=== PATIENT | female | born 1970 | race Native Hawaiian/Other Pacific Islander ===

== ENCOUNTER 2016-04-25 20:58 | Observation (INO) | payer OTHER ==
[2016-04-25] MEDS ORDERED: SODIUM CHLORIDE 0.9% 1,000 ML IV STA ×2 (21:27)
[2016-04-25] MEDS ORDERED: RX INFO: IV CONTRAST WAS GIVEN 1 EACH MISC MISCELLANE PRN (21:27)
[2016-04-25] MEDS ORDERED: LORazepam 2 MG/ML SYRINGE IV STA (21:28)
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
[2016-04-25 21:43] LABS: Anisocytosis Slight; Basophils % (A) 0 %; CHCM 31.9; Eosinophils # (A) 0.1 k/uL (0-0.7); Eosinophils % (A) 1 %; HDW 3.02; HGB 10.4 gm/dL (11.4-16.0); Hypochromasia Slight; Luc # (Auto) 0.17; Luc % (Auto) 1; Lymphocytes # (A) 3.6 k/uL (1.0-4.8); Lymphocytes % (A) 25 %; MCH 23.1 pg (25.0-35.0); MCHC 30.6 g/dL (31.0-37.0); MCV 75.7 fL (80.0-100.0); Mean Platelet Volume 7.2; Microcytosis Slight; Monocytes # (A) 0.6 k/uL (0-1.0); Monocytes % (A) 4 %; Neutrophils # (A) 9.6 k/uL (1.3-7.7); Neutrophils % (A) 68 %; RBC 4.49 m/uL (3.80-5.40); RDW 17.5 % (11.5-15.5); WBC 14.1 k/uL (3.8-10.6); WBC (Perox) 14.39
[2016-04-25 21:53] LABS: ALT 24 U/L (9-52); AST 18 U/L (14-36); Alkaline Phosphatase 102 U/L (38-126); Amylase 60 U/L (30-110); Anion Gap 13 mmol/L; Blood Urea Nitrogen 12 mg/dL (7-17); Calcium 9.9 mg/dL (8.4-10.2); Carbon Dioxide 25 mmol/L (22-30); Chloride 100 mmol/L (98-107); Glucose 115 mg/dL (74-99); Magnesium 1.4 mg/dL (1.6-2.3); Non-African American GFR(MDRD) >60 (>60 ml/min/1.73 sqM); Phosphorous 4.9 mg/dL (2.5-4.5); Potassium 3.7 mmol/L (3.5-5.1); Sodium 138 mmol/L (137-145); Total Bilirubin 0.4 mg/dL (0.2-1.3); Total Protein 7.8 g/dL (6.3-8.2)
--- NOTE | 2016-04-25 22:28 | CT ---
EXAMINATION TYPE: CT soft tissue neck w con DATE OF EXAM: 04/25/2016 10:13 PM COMPARISON: NONE HISTORY: PT STATES OF LUMP ON LEFT SIDE OF JAW THAT IS PAINFUL. MARKED WITH BB. CT DLP: 666 mGycm Automated exposure control for dose reduction was used. CONTRAST: CT scan of the neck is performed following with IV Contrast, patient injected with 100 mL of Omnipaqu e 300. Axial images are obtained, coronal and sagittal reformatted images are reviewed. FINDINGS: There is moderate mucosal thickening in the right maxillary sinus. Parotid glands are symmetric. Subm andibular salivary glands are symmetric. Orbital margins are intact. There is no evidence of a pharyn geal mass. Thyroid gland is symmetric. There is normal branching pattern of the great vessels on the aortic arch. There are a few bilateral anterior triangle cervical lymph nodes that measure up to 2 cm . Epiglottis is normal. Subglottic trachea appears normal. Cervical spine is intact. IMPRESSION: Right maxillary sinusitis. The parotid glands are symmetric. I do not see a discrete ma ss involving the left parotid gland which is the area of concern marked on the images. Mild anterior cervical adenopathy of uncertain significance.
[2016-04-25 22:45] LABS: Appearance,Urine Cloudy (Clear); Bilirubin,Urine Negative (Negative); Glucose,Urine (UA) Negative (Negative); Ketones,Urine Negative (Negative); Leukocyte Esterase,Urine Negative (Negative); Nitrite,Urine Negative (Negative); Particle Count 2974; Protein,Urine Negative (Negative); RBC,Urine <1 /hpf (0-5); Specific Gravity,Urine 1.016 (1.001-1.035); Squamous Epithelial Cell,Urine 8 /hpf (0-4); UA Billing (MACRO vs. MICRO) MICRO; Urobilinogen,Urine <2.0 mg/dL (<2.0); WBC,Urine 1 /hpf (0-5)
[2016-04-25] MEDS ORDERED: ACETAMINOPHEN TAB 325 MG TAB PO STA (23:02)
[2016-04-25] MEDS: MAGNESIUM SULFATE-D5W PMX 1 GM in DEXTROSE/WATER 1 100ML.BAG IVPB SCH (23:03)
[2016-04-26] MEDS: MAGNESIUM SULFATE-D5W PMX 1 GM in DEXTROSE/WATER 1 100ML.BAG IVPB SCH ×2 (00:10→20:47)
[2016-04-26] MEDS ORDERED: SODIUM CHLORIDE 0.9% 1,000 ML IV ONE (00:20)
[2016-04-26] MEDS ORDERED: AMPICILLIN-SULBACTAM 3 GM in SODIUM CHLORIDE 0.9% 100 ML IVPB STA (00:21)
[2016-04-26] MEDS ORDERED: ACETAMINOPHEN TAB 325 MG TAB PO PRN (00:21)
[2016-04-26 01:57] VITALS: BMI 33.4
[2016-04-26] MEDS: LORazepam 2 MG/ML SYRINGE IV PRN ×4 (02:09→22:23)
[2016-04-26] MEDS: AMPICILLIN-SULBACTAM 3 GM in SODIUM CHLORIDE 0.9% 100 ML IVPB SCH ×3 (06:41→21:31)
[2016-04-26] MEDS: ENOXAPARIN 40 MG/0.4 ML SYRINGE SQ SCH (08:16)
--- NOTE | 2016-04-26 09:19 | XR ---
EXAMINATION TYPE: XR chest 2V DATE OF EXAM: 04/26/2016 7:25 AM COMPARISON: Prior chest x-ray November HISTORY: Pain, lump on the right side of jaw TECHNIQUE: Frontal and lateral views of the chest are obtained. FINDINGS: There is no focal air space opacity, pleural effusion, or pneumothorax seen. The cardiac silhouette size is within normal limits. There are overlying cardiac leads. The osseous structures a re intact. IMPRESSION: No acute cardiopulmonary process.
[2016-04-26] MEDS ORDERED: ALPRAZolam 0.5 MG TAB PO PRN (09:26)
[2016-04-26] MEDS ORDERED: HYDROcodone/APAP 5-325MG 1 EACH TAB PO PRN (09:26)
[2016-04-26] MEDS: METHOCARBAMOL 500 MG TAB PO SCH ×3 (10:14→22:22)
[2016-04-26] MEDS: GABAPENTIN 400 MG CAP PO SCH ×3 (10:14→22:22)
[2016-04-26] MEDS: LISINOPRIL 20 MG TAB PO SCH (10:14)
[2016-04-26] MEDS: IBUPROFEN 600 MG TAB PO SCH ×3 (12:32→22:21)
--- NOTE | 2016-04-26 14:45 | HP ---
DATE OF ADMISSION: CHIEF COMPLAINT: Chest pain and swelling in the left side of her neck. HISTORY OF PRESENT ILLNESS: This is the first admission for this 45-year-old G4, P3, A1 female. She started noticing some swelling in the left side of the neck or parotid area. She came to emergency room. A CT of the neck was normal and did not demonstrate any pathology. She has had no fever, chills, earache, soreness or lesions in the mouth or throat, etc. It appears to be in the parotid gland. REVIEW OF SYSTEMS: She has had no other symptoms. Past medical history, family history and personal and social histories are reviewed. SURGICAL HISTORY: She has had tubal ligation, and she had a procedure for endometriosis in the past. The patient is not allergic to any medication. She takes [place], Neurontin, lisinopril, Xanax, Robaxin, and propranolol. She smokes half pack of cigarettes a day. PHYSICAL EXAM: Temperature 98.2 and blood pressure 140/96. Pulse is 83, respirations 20, and she is afebrile. Head, ears, eyes, nose, mouth, and throat were normal. Neck veins are not distended. Thyroid is not enlarged. She does have left parotid swelling and tenderness. Neck is supple and chest is clear. Cardiac exam is normal. The abdomen is soft, nontender. Extremities are normal. IMPRESSION: 1. Probable left-sided parotiditis. 2. Hypertension. PLAN: 1. Bed rest. 2. IV fluids. 3. IV antibiotics. 4. Consult with ENT.
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
[2016-04-26] MEDS: HYDROcodone/APAP 5-325MG 1 EACH TAB PO PRN ×2 (18:08→22:31)
[2016-04-27] MEDS: AMPICILLIN-SULBACTAM 3 GM in SODIUM CHLORIDE 0.9% 100 ML IVPB SCH ×3 (02:43→14:39)
[2016-04-27 07:08] LABS: Anisocytosis Slight; Basophils % (A) 0 %; CH 23.5; Eosinophils # (A) 0.1 k/uL (0-0.7); Eosinophils % (A) 2 %; HCT 33.2 % (34.0-46.0); HDW 2.91; HGB 10.1 gm/dL (11.4-16.0); Hypochromasia Marked; Luc # (Auto) 0.23; Luc % (Auto) 3; Lymphocytes # (A) 3.4 k/uL (1.0-4.8); Lymphocytes % (A) 38 %; MCH 23.8 pg (25.0-35.0); MCHC 30.3 g/dL (31.0-37.0); MCV 78.6 fL (80.0-100.0); Mean Platelet Volume 6.8; Microcytosis Slight; Monocytes # (A) 0.4 k/uL (0-1.0); Monocytes % (A) 5 %; Neutrophils # (A) 4.7 k/uL (1.3-7.7); Neutrophils % (A) 52 %; RBC 4.23 m/uL (3.80-5.40); RDW 17.4 % (11.5-15.5); WBC (Perox) 9.81
[2016-04-27 07:26] LABS: ALT 23 U/L (9-52); AST 14 U/L (14-36); Alkaline Phosphatase 85 U/L (38-126); Anion Gap 9 mmol/L; Blood Urea Nitrogen 12 mg/dL (7-17); Calcium 8.3 mg/dL (8.4-10.2); Carbon Dioxide 24 mmol/L (22-30); Chloride 108 mmol/L (98-107); Glucose 86 mg/dL (74-99); Magnesium 2.1 mg/dL (1.6-2.3); Non-African American GFR(MDRD) >60 (>60 ml/min/1.73 sqM); Potassium 4.4 mmol/L (3.5-5.1); Sodium 141 mmol/L (137-145); Total Bilirubin 0.2 mg/dL (0.2-1.3); Total Protein 6.8 g/dL (6.3-8.2)
[2016-04-27] MEDS: HYDROcodone/APAP 5-325MG 1 EACH TAB PO PRN ×2 (07:57→13:08)
[2016-04-27] MEDS: LISINOPRIL 20 MG TAB PO SCH (07:58)
[2016-04-27] MEDS: ENOXAPARIN 40 MG/0.4 ML SYRINGE SQ SCH (07:58)
[2016-04-27] MEDS: GABAPENTIN 400 MG CAP PO SCH (07:58)
[2016-04-27] MEDS: METHOCARBAMOL 500 MG TAB PO SCH (07:59)
[2016-04-27 08:21] VITALS: BP 123/70; PULSE 104; RESP 18; TEMP 98.6
--- NOTE | 2016-04-27 08:53 | P.CNOR ---
History of Present Illness - [facility] Consult date: 04/27/16 Consult reason: neck pain History of present illness: Patient is seen and examined today at bedside. She is a 45-year-old female with long-standing history of neck pain. She says that her neck pains been present for years and years and it doesn't have any specific new change. She does say that she developed some swelling at the left side of her face and neck and has been having pain at her neck and toward her chest and shoulder. She is quite concerned about this and presented to the hospital in this regard. She has been worked up for the procedure swelling around her cheek and upper neck on the left but there has not been found to be discrete mass or issue at the area. She has soreness at her neck which she states has been present for years. She currently sees Dr. Wu as an outpatient for her continued neck issues. She has had interventional pain management and medical management for her neck issues in the past with Dr. Barrow and Dr. Wu. She denies any weakness at her upper extremities. She denies any numbness or tingling at her arms below her elbows. She does fascia has some numbness that extends at her left leg over her shoulders. She denies any weakness in her shoulders. She has increased pain with extension at her neck. She denies any changes with bowel or bladder function Review of Systems She smokes regularly. She denies any recent physical therapy or specific exercises for her neck. She says she had spasms around her neck quite regularly but states that she has poor diet. She denies any weakness in her upper extremities denies any changes in her bowel bladder function. She feels that she has some chest pain with her neck on the left. Past Medical History Past Medical History: COPD, GERD/Reflux, Hypertension, Musculoskeletal Disorder , Seizure Disorder Additional Past Medical History / Comment(s): ANXIETY, Depression, suicide attempt, Bipolar, Borderline Traits. Pt. states last seizure was yesterday 11/10 History of Any Multi-Drug Resistant Organisms: None Reported Past Surgical History: Tubal Ligation Additional Past Surgical History / Comment(s): "Tummy Tuck" Past Anesthesia/Blood Transfusion Reactions: No Reported Reaction Additional Past Anesthesia/Blood Transfusion Reaction / Comm: Unknown, patient poor historian. Past Psychological History: Anxiety, Bipolar, Depression Additional Psychological History / Comment(s): History of jumpig off a second story building in [place]. Smoking Status: Current every day smoker Past Alcohol Use History: None Reported Additional Past Alcohol Use History / Comment(s): pt denies any etoh or drug use Past Drug Use History: Prescription Drug Abuse Additional Drug Use History / Comment(s): pt does have a hx if inpt SA tx Medications and Allergies Home Medications Medication Instructions Recorded Confirmed Type ALPRAZolam [Xanax] 1 mg PO BID PRN 10/15/15 04/25/16 History Lisinopril [Lisinopril] 20 mg PO DAILY 10/15/15 04/25/16 History Propranolol HCl 20 mg PO BID 10/15/15 04/25/16 History Albuterol Inhaler [Ventolin Hfa 2 puff INHALATION RT-Q6H PRN 01/11/16 04/25/16 History Inhaler] Gabapentin [Neurontin] 400 mg PO TID 04/25/16 04/25/16 History HYDROcodone/APAP 5-325MG [[place] 1 tab PO DAILY PRN 04/25/16 04/25/16 History 5-325] Methocarbamol [Robaxin] 500 mg PO TID 04/25/16 04/25/16 History Allergies Allergy/AdvReac Type Severity Reaction Status Date / Time Fish Containing Products Allergy Unknown Verified 04/25/16 21:06 [Fish] onion Allergy Anaphylaxis Verified 04/25/16 21:06 shellfish derived [Shellfish] Allergy Anaphylaxis Verified 04/25/16 21:06 venom-honey bee Allergy Anaphylaxis Verified 04/25/16 21:06 [bee venom (honey bee)] Physical Examination Osteopathic Statement: *. No significant issues noted on an osteopathic structural exam other than those noted in the History and Physical/Consult. Results - Labs Labs: Abnormal Lab Results - Last 24 Hours (Table) 04/27/16 04/27/16 Range/Units 06:34 06:34 Hgb 10.1 L (11.4-16.0) gm/dL Hct 33.2 L (34.0-46.0) % MCV 78.6 L (80.0-100.0) fL MCH 23.8 L (25.0-35.0) pg MCHC 30.3 L (31.0-37.0) g/dL RDW 17.4 H (11.5-15.5) % Chloride 108 H (98-107) mmol/L Calcium 8.3 L (8.4-10.2) mg/dL H & H 04/27/16 Range/Units 06:34 Hgb 10.1 L (11.4-16.0) gm/dL Hct 33.2 L (34.0-46.0) % Result Diagrams: 04/27/16 06:34 04/27/16 06:34 - Diagnostic results Cervical MRI with contrast: report reviewed, image reviewed (Her new computed tomography scan of her thoracic spine as well as her cervical thoracic and lumbar MRIs from March 22 and 03/24/2016 are reviewed. I reviewed the images and the reports.) Lumbar MRI with/without contrast: report reviewed, image reviewed CT Scan - lumbar: report reviewed, image reviewed Assessment and Plan Plan: Chronic neck pain Myofascial strain at her neck Degenerative disc disease cervical spine Degenerative disc disease lumbar spine Degenerative disc disease thoracic spine The patient has had chronic neck pain over the past several years. She has some new swelling over her left upper neck toward her jaw which is on accounted for and still being worked up. She feels she has some tightness around her neck and left upper chest which is continuing with her workup. I think that it is doubtful that this stems directly from her cervical spine other than issues with myofascial strain around her neck. I was able to review her computed tomography scan of her neck as well as images from 1 month ago at her neck thoracic spine and lumbar spine. There is some disc degeneration at C5 6 and C6 7 with some disc bulging without significant stenosis or foraminal encroachment. At her thoracic spine she has some disc protrusions at C3 4 5 and C7 8 without significant stenosis. Her lumbar spine shows some disc degeneration at L4 5 with mild disc bulging without stenosis centrally, there is some bilateral protrusion at L4 5 on the left. I do not think that her spine is significantly causing radicular symptoms and she does not have focal neurologic deficit at this point. I do not think that she would be a candidate for surgical intervention at her neck thoracic or lumbar spine at this point. I think that she should try to work through some physical therapy to alleviate her myofascial strain along with anti-inflammatory medications and possible steroids. She was discussing pain medications which she should continue with her pain management through Dr. Wu as she is already established. I think she should continue conservative treatment for her neck with Dr. Wu's office as an outpatient. She has a number of lifestyle changes that could be made to help her situation with her neck overall including her change of diet, loss of weight, smoking cessation, and focused physical therapy and continue home exercises. We discussed this at bedside. From a orthopedic surgery standpoint it is okay for discharge home when she is cleared with medical management. We can follow her up on an as- needed basis.
[2016-04-27] MEDS: LORazepam 2 MG/ML SYRINGE IV PRN (09:34)
[2016-04-27] MEDS: IBUPROFEN 600 MG TAB PO SCH (09:34)
--- NOTE | 2016-04-27 13:59 | P.DS ---
Providers Date of admission: 04/26/16 00:19 Expected date of discharge: 04/27/16 Attending physician: Jhonny Arizmendi Consults: 04/26/16 15:15 Consult Physician Routine Consulting Provider: Julián Soto Consult Reason/Comments: neck pain Do you want consulting provider notified?: Already Contacted 04/26/16 16:25 Consult Physician Routine Consulting Provider: True Sabillon Consult Reason/Comments: neck pain Do you want consulting provider notified?: Already Contacted 04/27/16 07:00 Consult Physician Urgent Consulting Provider: Gavin Hewitt Consult Reason/Comments: left cervical radiculopathy Do you want consulting provider notified?: Yes Primary care physician: Stated None Hospital Course: 45-year-old female presented with a chief complaint of developing swelling in the left side of the neck involving parotid area. Patient stated that she noticed a swelling in the left side of the neck several days prior. Patient did have a CAT scan of the neck but was read as normal. Patient was seen by Dr. Amaro who indicated from his perspective that there was no acute intervention warranted at this time. Patient was being treated for inflammation of parotid on admission patient was started on IV antibiotic therapy. Dr. Sabillon indicated the patient be discharged on oral Augmentin and increase oral intake there was no evidence of any stone in the parotid gland additionally orthopedic consultation was requested for the neck /cervical pain. They indicated there was no orthopedic surgical intervention at this time continue with conservative treatment. Patient does see for pain management doctor estela. Patient did have a computed tomography scan of the lumbar and thoracic and neck spine. It did show disc degeneration at C5 6 and 7 with some bulge disc without any significant stenosis. They did discuss patient could address lifestyle changes that could be made to help her situation with her neck including diet change loss await stop smoking cigarettes and physical therapy as well as home exercise. This was discussed by orthopedic service from the perspective was okay to be discharged. Additionally patient was seen by Dr. Octavia Soto neurology with a neurological workup patient did have an MRI of the cervical spine done on 03/22/2016 it showed cervical disc disease at C5 and C6. That would contribute to her left arm discomfort. It was noted the patient was requesting pain medication monitored a refill. Was explained to the patient this would be deferred to her pain specialist at this time. And from all consulting physicians patient was felt to be appropriate to be discharged home Impression discharge diagnosis Anxiety disorder nonspecified Chronic neck pain Myofascial strain at her neck Degenerative disc disease cervical spine Degenerative disc disease lumbar spine Degenerative disc disease thoracic spine Cervical radiculopathy Status: Acute Code(s): M54.12 - RADICULOPATHY, CERVICAL REGION Anxiety Status: Acute Code(s): F41.9 - ANXIETY DISORDER, UNSPECIFIED Neck pain Status: Acute Code(s): M54.2 - CERVICALGIA Present on admission left neck pain suspect due to acute parotiditis with no evidence of a stone Chronic pain narcotic dependency The above dictated assessment and findings were discussed with dr arizmendi. Impression and the plan of care have been dictated as directed. Renee Oreilly nurse practitioner acting as a scribe for dr arizmendi Patient Condition at Discharge: Good Plan - Discharge Summary New Discharge Prescriptions: Amoxicillin/Potassium Clav [Augmentin 875-125 Tablet] 1 tab PO Q12HR #20 tab Discharge Medication List ALPRAZolam [Xanax] 1 mg PO BID PRN 10/15/15 [History] Lisinopril 20 mg PO DAILY 10/15/15 [History] Propranolol HCl 20 mg PO BID 10/15/15 [History] Albuterol Inhaler [Ventolin Hfa Inhaler] 2 puff INHALATION RT-Q6H PRN 01/11/16 [ History] Gabapentin [Neurontin] 400 mg PO TID 04/25/16 [History] HYDROcodone/APAP 5-325MG [[place] 5-325] 1 tab PO DAILY PRN 04/25/16 [History] Methocarbamol [Robaxin] 500 mg PO TID 04/25/16 [History] Amoxicillin/Potassium Clav [Augmentin 875-125 Tablet] 1 tab PO Q12HR #20 tab 04/01 [Rx] Follow up Appointment(s)/Referral(s): None,Stated [Primary Care Provider] - 1-2 days Jhonny Arizmendi MD [STAFF PHYSICIAN] - 04/29/16 (Appointment made for April 28 at 12pm.) Ximena Wu MD [STAFF PHYSICIAN] - 1 Week Activity/Diet/Wound Care/Special Instructions: Stop smoking cigarettes smoking cessation information provided Discharge Disposition: HOME SELF-CARE
--- NOTE | 2016-04-27 19:29 | PN ---
CHIEF COMPLAINT: Left parotid pain. HISTORY OF PRESENT ILLNESS: This lady is doing well. She awaits her ENT consult. She had no fever or chills. PHYSICAL EXAMINATION: She still has a tender left parotid mass. Chest is clear. Cardiac exam is Normal. IMPRESSION: Left parotiditis. PLAN: Await evaluation by ENT. After that she may be able to be discharged, and this will be arranged by the nurse practitioner. She will follow up in the office.
== END 2016-04-27 16:45 | disposition home or self-care (01) ==
LOC: EC 20:58 → 3OBS 04-26 00:19
PROVIDERS: ADMIT Family Medicine; ATTEND Family Medicine
DX: M50.10 Cervical disc disorder with radiculopathy, unspecified cervical region (principal); F41.9 Anxiety disorder, unspecified; M51.34 Other intervertebral disc degeneration, thoracic region; M51.36 Other intervertebral disc degeneration, lumbar region; G89.29 Other chronic pain; M48.00 Spinal stenosis, site unspecified; R13.10 Dysphagia, unspecified; S16.1XXA Strain of muscle, fascia and tendon at neck level, initial encounter; K21.9 Gastro-esophageal reflux disease without esophagitis; K11.20 Sialoadenitis, unspecified; J44.9 Chronic obstructive pulmonary disease, unspecified; I10 Essential (primary) hypertension; G40.909 Epilepsy, unspecified, not intractable, without status epilepticus; E83.42 Hypomagnesemia; Z98.51 Tubal ligation status; F31.9 Bipolar disorder, unspecified; F11.20 Opioid dependence, uncomplicated; F17.210 Nicotine dependence, cigarettes, uncomplicated
CPT/HCPCS: 36415; 93005; 80053 ×2; 82150 ×2; 83735 ×3; 84100; 85025 ×2; 81001; 87086; 71020; 70491; 99285; 96375; 96365; 96361; 96366; G0378 ×2; J2060 ×3; J1650 ×2; J3475 ×2; Q9967; J0295 ×2; 96368; 96372; 96376

== ENCOUNTER 2016-08-07 20:48 | Emergency (ER) | payer OTHER ==
[2016-08-07 20:59] VITALS: BP 184/97; PULSE 96; RESP 20; TEMP 99.3
--- NOTE | 2016-08-07 21:13 | ED ---
General Adult HPI - General Chief complaint: Recheck/Abnormal Lab/Rx Stated complaint: anxiety Time Seen by Provider: 08/07/16 21:03 Source: patient, RN notes reviewed Mode of arrival: ambulatory Limitations: no limitations - History of Present Illness Initial comments: 46-year-old female presents to the emergency department with a chief complaint of needing medical clearance for rehab. Patient states she is scheduled to start rehab for heroin addiction. Patient states she was sent here for medical clearance. Patient states that she has injected in the arms and she has noticed a scar tissue and bumps around the arm she wanted to make sure those were okay. Patient states that other than that she has no other complaints. Patient denies any recent fever, chills, shortness of breath, chest pain, back pain, abdominal pain, nausea vomiting, numbness or tingling, dysuria or hematuria, constipation or diarrhea, headaches or visual changes, or any other current symptoms. - Related Data Home Medications Medication Instructions Recorded Confirmed ALPRAZolam [Xanax] 1 mg PO BID PRN 10/15/15 04/25/16 Lisinopril 20 mg PO DAILY 10/15/15 04/25/16 Propranolol HCl 20 mg PO BID 10/15/15 04/25/16 Albuterol Inhaler [Ventolin Hfa 2 puff INHALATION RT-Q6H PRN 01/11/16 04/25/16 Inhaler] Gabapentin [Neurontin] 400 mg PO TID 04/25/16 04/25/16 HYDROcodone/APAP 5-325MG [[place] 1 tab PO DAILY PRN 04/25/16 04/25/16 5-325] Methocarbamol [Robaxin] 500 mg PO TID 04/25/16 04/25/16 Previous Rx's Medication Instructions Recorded Amoxicillin/Potassium Clav 1 tab PO Q12HR #20 tab 04/27/16 [Augmentin 875-125 Tablet] Allergies Allergy/AdvReac Type Severity Reaction Status Date / Time Fish Containing Products Allergy Unknown Verified 04/25/16 21:06 [Fish] onion Allergy Anaphylaxis Verified 04/25/16 21:06 shellfish derived [Shellfish] Allergy Anaphylaxis Verified 04/25/16 21:06 venom-honey bee Allergy Anaphylaxis Verified 04/25/16 21:06 [bee venom (honey bee)] Review of Systems ROS Statement: Those systems with pertinent positive or pertinent negative responses have been documented in the HPI. ROS Other: All systems not noted in ROS Statement are negative. Past Medical History Past Medical History: COPD, GERD/Reflux, Hypertension, Musculoskeletal Disorder , Seizure Disorder Additional Past Medical History / Comment(s): ANXIETY, Depression, suicide attempt, Bipolar, Borderline Traits. Pt. states last seizure was yesterday 11/10 History of Any Multi-Drug Resistant Organisms: None Reported Past Surgical History: Tubal Ligation Additional Past Surgical History / Comment(s): "Tummy Tuck" Past Anesthesia/Blood Transfusion Reactions: No Reported Reaction Additional Past Anesthesia/Blood Transfusion Reaction / Comment(s): Unknown, patient poor historian. Past Psychological History: Anxiety, Bipolar, Depression Additional Psychological History / Comment(s): History of jumpig off a second story building in [place]. Smoking Status: Current every day smoker Past Alcohol Use History: None Reported Additional Past Alcohol Use History / Comment(s): pt denies any etoh or drug use Past Drug Use History: Heroin, Prescription Drug Abuse Additional Drug Use History / Comment(s): pt does have a hx if inpt SA tx General Exam Limitations: no limitations General appearance: alert, in no apparent distress ENT exam: Present: normal exam, mucous membranes moist Neck exam: Present: normal inspection. Absent: tenderness, meningismus, lymphadenopathy Respiratory exam: Present: normal lung sounds bilaterally. Absent: respiratory distress, wheezes, rales, rhonchi, stridor Cardiovascular Exam: Present: regular rate, normal rhythm, normal heart sounds. Absent: systolic murmur, diastolic murmur, rubs, gallop, clicks Extremities exam: Present: full ROM, normal capillary refill. Absent: normal inspection (Patient does appear to have track gary to bilateral arms), tenderness Back exam: Present: normal inspection Neurological exam: Present: alert, oriented X3 Skin exam: Present: warm, dry, intact, normal color. Absent: rash Course Vital Signs 08/07/16 20:54 Temperature 99.3 F Pulse Rate 96 Respiratory 20 Rate Blood Pressure 184/97 O2 Sat by Pulse 100 Oximetry Medical Decision Making - Medical Decision Making 46-year-old female presents for medical clearance for rehab. This and does not appear to be any acute emergency. Sensation is clear to go to rehabilitation. Patient. Plan QUESTIONS have been answered. She'll be discharged home. Disposition Clinical Impression: Medical clearance for psychiatric admission, Opioid abuse Disposition: HOME SELF-CARE Condition: Stable Instructions: Narcotic Abuse (ED) Additional Instructions: Please use medication as discussed. Please follow up with family doctor if symptoms have not improved over the next two days. Please return to the emergency room if your symptoms increase or worsen or for any other concerns. Referrals: None,Stated [Primary Care Provider] - 1-2 days Matt Cervantes MD [STAFF PHYSICIAN] - 1-2 days Time of Disposition: 21:12
== END 2016-08-07 21:20 | disposition home or self-care (01) ==
LOC: EC 20:48
DX: Z00.00 Encounter for general adult medical examination without abnormal findings (principal); F11.10 Opioid abuse, uncomplicated; I10 Essential (primary) hypertension; F17.200 Nicotine dependence, unspecified, uncomplicated; Z91.030 Bee allergy status; Z91.018 Allergy to other foods; Z91.013 Allergy to seafood; Z79.899 Other long term (current) drug therapy
CPT/HCPCS: 99282

== ENCOUNTER 2016-08-29 07:04 | Inpatient (IN) | payer MEDICAID, OTHER ==
[2016-08-29] MEDS: LORazepam 1 MG TAB PO STA ×2 (07:30→10:28)
--- NOTE | 2016-08-29 07:44 | ED ---
General Adult HPI - General Chief complaint: Psychiatric Symptoms Stated complaint: Mental Health Time Seen by Provider: 08/29/16 07:16 Source: patient, RN notes reviewed, old records reviewed Mode of arrival: ambulatory Limitations: no limitations - History of Present Illness Initial comments: This is a 46-year-old female ER for evaluation this patient is here today for evaluation of suicidal thoughts, wind overdosed on drugs. Patient has history of mild psychiatric disease, recent history of drug abuse and increasing life stressors, loss of family loss of friends loss of causing, no job. - Related Data Home Medications Medication Instructions Recorded Confirmed ALPRAZolam [Xanax] 1 mg PO BID PRN 10/15/15 08/29/16 Lisinopril 20 mg PO DAILY 10/15/15 08/29/16 Propranolol HCl 20 mg PO BID 10/15/15 08/29/16 Albuterol Inhaler [Ventolin Hfa 2 puff INHALATION RT-Q6H PRN 01/11/16 08/29/16 Inhaler] Gabapentin [Neurontin] 400 mg PO TID 04/25/16 08/29/16 HYDROcodone/APAP 5-325MG [[place] 1 tab PO DAILY PRN 04/25/16 08/29/16 5-325] Methocarbamol [Robaxin] 500 mg PO TID PRN 04/25/16 08/29/16 Gabapentin [Neurontin] 300 mg PO TID 08/29/16 08/29/16 Allergies Allergy/AdvReac Type Severity Reaction Status Date / Time Fish Containing Products Allergy Unknown Verified 08/29/16 08:36 [Fish] onion Allergy Anaphylaxis Verified 08/29/16 08:36 shellfish derived [Shellfish] Allergy Anaphylaxis Verified 08/29/16 08:36 venom-honey bee Allergy Anaphylaxis Verified 08/29/16 08:36 [bee venom (honey bee)] Review of Systems ROS Statement: Those systems with pertinent positive or pertinent negative responses have been documented in the HPI. ROS Other: All systems not noted in ROS Statement are negative. Past Medical History Past Medical History: COPD, GERD/Reflux, Hypertension, Musculoskeletal Disorder , Seizure Disorder Additional Past Medical History / Comment(s): ANXIETY, Depression, suicide attempt, Bipolar, Borderline Traits. Pt. states last seizure was yesterday 11/10 History of Any Multi-Drug Resistant Organisms: None Reported Past Surgical History: Tubal Ligation Additional Past Surgical History / Comment(s): "Tummy Tuck" Past Anesthesia/Blood Transfusion Reactions: No Reported Reaction Additional Past Anesthesia/Blood Transfusion Reaction / Comment(s): Unknown, patient poor historian. Past Psychological History: Anxiety, Bipolar, Depression Additional Psychological History / Comment(s): History of jumpig off a second story building in [place]. Smoking Status: Current every day smoker Past Alcohol Use History: None Reported Additional Past Alcohol Use History / Comment(s): pt denies any etoh or drug use Past Drug Use History: Heroin, Prescription Drug Abuse Additional Drug Use History / Comment(s): pt does have a hx if inpt SA tx General Exam Limitations: no limitations General appearance: alert, in no apparent distress Head exam: Present: atraumatic, normocephalic, normal inspection Eye exam: Present: normal appearance, PERRL, EOMI. Absent: scleral icterus, conjunctival injection, periorbital swelling ENT exam: Present: normal exam, mucous membranes moist Neck exam: Present: normal inspection. Absent: tenderness, meningismus, lymphadenopathy Respiratory exam: Present: normal lung sounds bilaterally. Absent: respiratory distress, wheezes, rales, rhonchi, stridor Cardiovascular Exam: Present: regular rate, normal rhythm, normal heart sounds. Absent: systolic murmur, diastolic murmur, rubs, gallop, clicks GI/Abdominal exam: Present: soft, normal bowel sounds. Absent: distended, tenderness, guarding, rebound, rigid Extremities exam: Present: normal inspection, full ROM, normal capillary refill. Absent: tenderness, pedal edema, joint swelling, calf tenderness Back exam: Present: normal inspection Neurological exam: Present: alert, oriented X3, CN II-XII intact Psychiatric exam: Present: normal affect, normal mood Skin exam: Present: warm, dry, intact, normal color. Absent: rash Course Vital Signs 08/29/16 07:08 Temperature 98.8 F Pulse Rate 119 H Respiratory 22 Rate Blood Pressure 147/90 O2 Sat by Pulse 98 Oximetry - Reevaluation(s) Reevaluation #1: 08/29/16 07:56 Patient's medically clear for psychiatric evaluation Medical Decision Making - Medical Decision Making 46 female ER prevarication of psychiatric disease, significant vertebra psych will admit for psychiatric evaluation and treatment - Lab Data Lab Results 05/16/17 Range/Units 07:25 Urine Opiates Screen Detected H (NotDetected) Ur Oxycodone Screen Not Detected (NotDetected) Urine Methadone Screen Not Detected (NotDetected) Ur Propoxyphene Screen Not Detected (NotDetected) Ur Barbiturates Screen Detected H (NotDetected) U Tricyclic Antidepress Not Detected (NotDetected) Ur Phencyclidine Scrn Not Detected (NotDetected) Ur Amphetamines Screen Not Detected (NotDetected) U Methamphetamines Scrn Not Detected (NotDetected) U Benzodiazepines Scrn Not Detected (NotDetected) Urine Cocaine Screen Not Detected (NotDetected) U Marijuana (THC) Screen Not Detected (NotDetected) Disposition Clinical Impression: Anxiety, Opioid abuse, Suicidal ideation Disposition: TRANSFER TO PSYCH HOSP/UNIT Condition: Fair Referrals: None,Stated [Primary Care Provider] - 1-2 days
[2016-08-29] MEDS ORDERED: ACETAMINOPHEN TAB 500 MG TAB PO STA (08:00)
[2016-08-29] MEDS ORDERED: GABAPENTIN 400 MG CAP PO STA (08:51)
[2016-08-29] MEDS ORDERED: ACETAMINOPHEN TAB 325 MG TAB PO PRN (11:17)
[2016-08-29] MEDS ORDERED: MAG HYDROX/AL HYDROX/SIMETH 30 ML CUP PO PRN (11:17)
[2016-08-29] MEDS ORDERED: MAGNESIUM HYDROXIDE 2,400 MG/10 ML CUP PO PRN (11:17)
[2016-08-29] MEDS ORDERED: LORazepam 1 MG TAB PO PRN (11:17)
[2016-08-29] MEDS ORDERED: ALBUTEROL INHALER 60 PUFF/8 GM INHALER INHALATION PRN (11:20)
[2016-08-29] MEDS ORDERED: HYDROcodone/APAP 5-325MG 1 EACH TAB PO PRN (12:17)
[2016-08-29] MEDS ORDERED: METHOCARBAMOL 500 MG TAB PO PRN (12:17)
[2016-08-29] MEDS: cloNIDine HCL 0.1 MG TAB PO SCH (13:29)
--- NOTE | 2016-08-29 13:41 | P.HP ---
Psychiatric H&P - . H&P Date: 08/29/16 History & Physical: DATE OF SERVICE: 08/29/2016 IDENTIFYING DATA: This patient is a 46-year-old single female who was admitted to the mental health unit through emergency room for suicidal ideation.. HISTORY OF PRESENT ILLNESS: The patient presents with heroin withdrawal. Began feeling suicidal about one week ago after her car was impounded by drug [employer], she allowed her roommates boyfriend to drive, he is a drug dealer. After she told family about her problems she was told they do not want to have anything to do with her. She now feels she has no reason to live. Planned on OD on heroin. Came to hospital when a friend brought her here instead to get heroin. Has been using heroin for 6 months after her pain doctor stopped seeing her for missing her appointments]. She reports she has bipolar disorder but does not take medications, does not keep outpatient appointments. Patient was crying during interview, stating she did not think she could continue in withdrawal, wants subutex. PAST PSYCHIATRIC HISTORY: 4 admission to psych unit. Reports she is diagnosed with bipolar, cannot recall when she last took, maybe 2013.. PAST MEDICAL HISTORY: Back pain, cyst on kidney. ALLERGIES: No known drug allergies. CHEMICAL DEPENDENCY HISTORY: Heroin IV, denies any other drug use.. FAMILY PSYCHIATRIC HISTORY: states her whole family has some disorder. FAMILY CHEMICAL DEPENDENCY HISTORY:mothers side, all her sisters, on dad's side some members have drug use. LEGAL HISTORY: Denies, but says [email or web address] wants her to work with them.. SOCIAL HISTORY: [Patient is unwilling to give history but reports she has children that were taken by her and she has not seen them for 5 years. Although 2 are in their 20s, they make no attempt to contact her. She cannot explain why they do not wish to be in contact. She is the eldest 6 sisters, 3 with her mother and 3 with her dad. She lives with a roommate and roommates boyfriend. Unemployed. MENTAL STATUS EXAM: Patient alert and oriented 3, poor eye contact, fair groomed in hospital attire.Uncooperative. Speech normal volume, rate and production. Coherent, logical and circumstantial thought process. No TONI, no FOI. No TB/TW/ TI Denied auditory and visual hallucinations. Denied paranoid ideation, delusions or IOR. Memory grossly intact Cognition average Mood dysphoric, tearful, affect constricted, congruent with mood. ++ suicidal ideation, plan to overdose on heroin, denies homicidal ideation. Insight ni; Judgment grossly intact for treatment purposes . STRENGTHS: verbal. WEAKNESSES: heroin. IMPRESSIONS: 46-year-old female with 6 month history of IV heroin use, severe. At a series of events that led to her car being impounded by the police after was involved in a drug exchange. She sought help from family members, who chose not to help. Presents herself as if this is the first time that she is asked for help from them, and has no insight to her responsibility and suffering consequences. She is a poor historian is uncooperative and is threatening to leave if she does not receive either an opiate or Subutex. No evidence of psychosis, no evidence of joselito, hypomania. She is experiencing opiate withdrawal. Opioid use disorder severe Opioid withdrawal History of bipolar disorder Cluster B traits PLAN: Continue psychiatric admission for safety purposes. Clonidine for opiate withdrawal Vistaril for anxiety/restlessness. Allergies Allergy/AdvReac Type Severity Reaction Status Date / Time Fish Containing Products Allergy Unknown Verified 08/29/16 08:36 Fish onion Allergy Anaphylaxis Verified 08/29/16 08:36 shellfish derived Shellfish Allergy Anaphylaxis Verified 08/29/16 08:36 venom-honey bee Allergy Anaphylaxis Verified 08/29/16 08:36 bee venom (honey bee) Vital Signs Temp 98.5 F 08/29/16 11:15 Pulse 105 H 08/29/16 12:46 Resp 18 08/29/16 11:15 BP 125/66 08/29/16 12:46 Pulse Ox 96 08/29/16 11:15 Intake & Output 08/28/16 08/29/16 08/29/16 18:59 06:59 18:59 Weight 79.1 kg Laboratory Last Values Urine Opiates Screen Detected (NotDetected) H 08/29/16 07:25 Ur Oxycodone Screen Not Detected (NotDetected) 08/29/16 07:25 Urine Methadone Screen Not Detected (NotDetected) 08/29/16 07:25 Ur Propoxyphene Screen Not Detected (NotDetected) 08/29/16 07:25 Ur Barbiturates Screen Detected (NotDetected) H 08/29/16 07:25 U Tricyclic Antidepress Not Detected (NotDetected) 08/29/16 07:25 Ur Phencyclidine Scrn Not Detected (NotDetected) 08/29/16 07:25 Ur Amphetamines Screen Not Detected (NotDetected) 08/29/16 07:25 U Methamphetamines Scrn Not Detected (NotDetected) 08/29/16 07:25 U Benzodiazepines Scrn Not Detected (NotDetected) 08/29/16 07:25 Urine Cocaine Screen Not Detected (NotDetected) 08/29/16 07:25 U Marijuana (THC) Screen Not Detected (NotDetected) 08/29/16 07:25 08/29/16 13:03
[2016-08-29] MEDS: hydrOXYzine PAMOATE 25 MG CAP PO PRN ×2 (14:31→19:16)
--- NOTE | 2016-08-29 15:14 | P.CONS ---
History of Present Illness - Reason for Consult Consult date: 08/29/16 Medical management - History of Present Illness This is a 46-year-old female. She does not have a primary care physician. She does have a past medical history of hypertension, anxiety, chronic back pain, asthma. Patient states she follows with Dr. Wu regarding pain management. She states she has been stressed out for a while and she was feeling suicidal. She had a plan but a friend brought her into [facility] emergency center for evaluation. She states she has had a previous hospitalization on the mental health unit in 2013. Urine drug screen was positive for opiates and barbiturates. Review of Systems All systems: negative Constitutional: Denies chills, Denies fever Eyes: denies blurred vision, denies pain Ears, nose, mouth and throat: Denies headache, Denies sore throat Cardiovascular: Denies chest pain, Denies shortness of breath Respiratory: Denies cough Gastrointestinal: Denies abdominal pain, Denies diarrhea, Denies nausea, Denies vomiting Genitourinary: Denies dysuria, Denies hematuria Musculoskeletal: Denies myalgias Integumentary: Denies pruritus, Denies rash Neurological: Denies numbness, Denies weakness Psychiatric: Reports depression, Reports hopelessness, Reports suicidal ideation , Denies anxiety Endocrine: Denies fatigue, Denies weight change Past Medical History Past Medical History: COPD, GERD/Reflux, Hypertension, Musculoskeletal Disorder , Seizure Disorder Additional Past Medical History / Comment(s): ANXIETY, Depression, suicide attempt, Bipolar, Borderline Traits. Pt. states last seizure was 11/10/13 History of Any Multi-Drug Resistant Organisms: None Reported Past Surgical History: Tubal Ligation Additional Past Surgical History / Comment(s): "Tummy Tuck" Past Anesthesia/Blood Transfusion Reactions: No Reported Reaction Additional Past Anesthesia/Blood Transfusion Reaction / Comm: Unknown, patient poor historian. Past Psychological History: Anxiety, Bipolar, Depression Additional Psychological History / Comment(s): History of jumpig off a [employer] building in [place]. Smoking Status: Current every day smoker Past Alcohol Use History: None Reported Additional Past Alcohol Use History / Comment(s): Patient is a smoker of a half a pack per day since she was 18 years of age. She denies any medical marijuana , marijuana, street drug or alcohol use. Past Drug Use History: Heroin, Prescription Drug Abuse Additional Drug Use History / Comment(s): pt does have a hx if inpt SA tx - Past Family History Father Additional Family Medical History / Comment(s): Father at age 63 with brain cancer and lung cancer. Mother Additional Family Medical History / Comment(s): Mother at age 54 due to a drunk driving car accident. Brother(s) Additional Family Medical History / Comment(s): Patient has 3 half brothers. One from a heroin overdose. 2 have no major medical problems. Sister(s) Additional Family Medical History / Comment(s): Patient has 6 half sisters that she does not have contact with. Daughter(s) Additional Family Medical History / Comment(s): Patient has 2 daughters and 1 son. She states she has not seen her 2 youngest children in 5 years as they were taken by their father to [place]. Medications and Allergies Home Medications Medication Instructions Recorded Confirmed Type ALPRAZolam [Xanax] 1 mg PO BID PRN 10/15/15 08/29/16 History Lisinopril 20 mg PO DAILY 10/15/15 08/29/16 History Propranolol HCl 20 mg PO BID 10/15/15 08/29/16 History Albuterol Inhaler [Ventolin Hfa 2 puff INHALATION RT-Q6H PRN 01/11/16 08/29/16 History Inhaler] Gabapentin [Neurontin] 400 mg PO TID 04/25/16 08/29/16 History HYDROcodone/APAP 5-325MG [[place] 1 tab PO DAILY PRN 04/25/16 08/29/16 History 5-325] Methocarbamol [Robaxin] 500 mg PO TID PRN 04/25/16 08/29/16 History Gabapentin [Neurontin] 300 mg PO TID 08/29/16 08/29/16 History Allergies Allergy/AdvReac Type Severity Reaction Status Date / Time Fish Containing Products Allergy Unknown Verified 08/29/16 08:36 [Fish] onion Allergy Anaphylaxis Verified 08/29/16 08:36 shellfish derived [Shellfish] Allergy Anaphylaxis Verified 08/29/16 08:36 venom-honey bee Allergy Anaphylaxis Verified 08/29/16 08:36 [bee venom (honey bee)] Physical Exam Vitals: Vital Signs Temp Pulse Pulse Resp BP BP Pulse Ox 08/29/16 12:46 105 H 125/66 08/29/16 11:15 98.5 F 99 18 140/82 96 08/29/16 11:03 97.8 F 89 16 140/89 98 08/29/16 07:08 98.8 F 119 H 22 147/90 98 Intake and Output 08/28/16 08/29/16 08/29/16 22:59 06:59 14:59 Other: Weight 79.1 kg Patient Weight 08/30/16 06:59 Weight 79.1 kg Gen: This is a 46-year-old female. She is cooperative. Patient is very tearful during evaluation. HEENT: Head is atraumatic, normocephalic. Pupils equal, round. Sclerae is anicteric. NECK: Supple. No JVD. No lymphadenopathy. No thyromegaly. LUNGS: Clear to auscultation. No wheezes or rhonchi. No intercostal retractions. HEART: Regular rate and rhythm. No murmur. ABDOMEN: Soft. Bowel sounds are present. No masses. No tenderness. EXTREMITIES: No pedal edema. No calf tenderness. NEUROLOGICAL: Patient is awake, alert and oriented x3. Cranial nerves 2 through 12 are grossly intact. Results Labs: Abnormal Lab Results - Last 24 Hours (Table) 08/29/16 Range/Units 07:25 Urine Opiates Screen Detected H (NotDetected) Ur Barbiturates Screen Detected H (NotDetected) Assessment and Plan Plan: 1. Depression. Patient admitted to the mental health unit. Continue current plan of care. 2. Tobacco use and dependence. Nicotine patch. 3. Asthma, mild intermittent. Continue Ventolin inhaler as needed. 4. Hypertension. Continue lisinopril 20 mg daily. 5. Chronic low back pain under the care of Dr. Wu. Continue Robaxin and gabapentin if okay with psychiatry. 6. Heroin abuse with withdrawal. No patient completely denied use of street drugs when evaluated but noted in Dr. Prado's notes the patient has been doing heroin for 6 months. Continue clonidine, Vistaril. Impression and plan of care have been directed as dictated by the signing physician. Radha Allen nurse practitioner acting as scribe for signing physician.
[2016-08-29] MEDS: GABAPENTIN 300 MG CAP PO SCH (16:23)
[2016-08-29] MEDS ORDERED: WATER FOR INJECTION, STERILE 10 ML IV ONE (16:42)
[2016-08-29] MEDS ORDERED: ZIPRASIDONE 20 MG VIAL IM ONE (16:42)
[2016-08-29] MEDS: ZIPRASIDONE 20 MG VIAL IM PRN (16:42)
[2016-08-29] MEDS ORDERED: PROPRANOLOL 20 MG TAB PO SCH (21:00)
[2016-08-30] MEDS: cloNIDine HCL 0.1 MG TAB PO SCH ×2 (02:43→08:22)
[2016-08-30] MEDS: GABAPENTIN 300 MG CAP PO SCH ×2 (02:44→08:22)
[2016-08-30] MEDS ORDERED: WATER FOR INJECTION, STERILE 10 ML IV ONE (06:18)
[2016-08-30] MEDS: ZIPRASIDONE 20 MG VIAL IM PRN (06:19)
[2016-08-30 06:58] VITALS: BP 155/67; PULSE 107; RESP 16; TEMP 98.1
[2016-08-30] MEDS: hydrOXYzine PAMOATE 25 MG CAP PO PRN ×2 (08:24→14:36)
[2016-08-30] MEDS ORDERED: LISINOPRIL 20 MG TAB PO SCH (09:00)
[2016-08-30] MEDS ORDERED: NICOTINE 14MG/24HR PATCH TRANSDERM SCH (10:00)
[2016-08-30 10:05] LABS: Anisocytosis Slight; Basophils % (A) 0 %; CH 23.4; CHCM 30.5; Eosinophils # (A) 0.1 k/uL (0-0.7); Eosinophils % (A) 1 %; HCT 36.3 % (34.0-46.0); HDW 2.77; Hypochromasia Moderate; Luc # (Auto) 0.32; Luc % (Auto) 4; Lymphocytes # (A) 2.3 k/uL (1.0-4.8); Lymphocytes % (A) 29 %; MCH 23.4 pg (25.0-35.0); MCHC 30.3 g/dL (31.0-37.0); MCV 77.2 fL (80.0-100.0); Mean Platelet Volume 6.6; Microcytosis Slight; Monocytes # (A) 0.2 k/uL (0-1.0); Monocytes % (A) 3 %; Neutrophils # (A) 4.9 k/uL (1.3-7.7); Neutrophils % (A) 63 %; RDW 17.1 % (11.5-15.5); WBC 7.8 k/uL (3.8-10.6); WBC (Perox) 7.85
[2016-08-30 10:40] LABS: ALT 15 U/L (9-52); AST 19 U/L (14-36); Alkaline Phosphatase 74 U/L (38-126); Anion Gap 14 mmol/L; Blood Urea Nitrogen 14 mg/dL (7-17); Calcium 8.9 mg/dL (8.4-10.2); Carbon Dioxide 21 mmol/L (22-30); Chloride 108 mmol/L (98-107); Glucose 143 mg/dL (74-99); Non-African American GFR(MDRD) >60 (>60 ml/min/1.73 sqM); Potassium 3.8 mmol/L (3.5-5.1); Sodium 143 mmol/L (137-145); Total Bilirubin 0.4 mg/dL (0.2-1.3); Total Protein 7.9 g/dL (6.3-8.2)
--- NOTE | 2016-08-30 12:28 | P.PN ---
Progress Note - Text INTERVERAL HISTORY:Patient reports she found out that I was the one who cancelled her pain medications. "I have 3 buldging discs and a fractured vertebrae, I have a 5 inch cycst somewhere in my body, why do you think I use heroin?" Patient was upset with no opioids being prescribed and no xanax being ordered. Patient states she is now feeling better, no longer restless but anxious. Gives more history today, she was recently at [employer] and left because her clothes were stollen, she does not want to go back there. She states a friend of her mother's is willing to let her stay with him, he does not use drugs, "he's boring, he watches nature shows, goes hunting, no drugs or etoh". Patient much improved, not as demanding of opiates/benzos. Agrees she has gone thru the worse of the withdrawal. Admits she overstated the suicidal thoughts due to being overwhelmed with the impounding of her car. She now is thinking she may work with the drug task force to get it back. She is thinking of looking for a job, requests ointment for scars of injections. She agrees to revoke her AMA with plan of discharge tomorrow MENTAL STATUS EXAM:Patient alert and oriented 3, good eye contact, fair groomed in hospital attire. Speech normal volume, rate and production. Coherent, logical and goal directed thought process. No TONI, no FOI. No TB/TW/ TI Denied auditory and visual hallucinations. Denied paranoid ideation, delusions or IOR. Memory intact Cognitionaverage Mood euthymic, affect full range, normal intensity, congruent with mood. Denies suicidal ideation, denies homicidal ideation. Insight partial; Judgement grossly intact Opioid withdrawal, resolving Opioid use disorder severe History of bipolar disorder(unlikely) Cluster B traits PLAN: Patient to be discharged today, at her request due to friend being able to pick her up today. Long discussion that opiates are not the correct medication for chronic pain. Increase gabapentin 400mg TID
--- NOTE | 2016-08-30 13:10 | P.DS ---
Providers Date of admission: 08/29/16 10:54 Expected date of discharge: 08/30/16 (pt requests today) Attending physician: Humera Prado MD Consults: 08/29/16 11:17 Consult Physician Routine Consulting Provider: Hilton Beck Consult Reason/Comments: history and physical Do you want consulting provider notified?: Yes Primary care physician: Stated None Hospital Course: Patient admitted thru ER with report of plan to kill herself by OD heroin. She reported she thought she was on her way to get heroin but instead friend came to hospital. She only revealed today that was not accurate and that she had not used heroin for a day or so [employer]. She reported she was overwhelmed with her car being impounded and feeling that all her family had turned their back on her. Today she was forthcoming about the presentation, that she did not know what to do with the impounding of the car. She is no longer suicidal, no longer demanding of narcotics or benzos, although she did act out yesterday when she found out she would not receive opiates or benzos on this admission. Discussion of chronic pain and that opiates are not indicated. Although she reports a diagnosis of bipolar disorder, difficult tease out sxs from drug use. Appears more c/w [employer]. Patient much improved, not as demanding of opiates/benzos. Agrees she has gone thru the worse of the withdrawal. Admits she overstated the suicidal thoughts due to being overwhelmed with the impounding of her car. She now is thinking she may work with the drug task force to get it back. She is thinking of looking for a job, requests ointment for scars of injections. She agrees to revoke her AMA with plan of discharge tomorrow MENTAL STATUS EXAM:Patient alert and oriented 3, good eye contact, fair groomed in hospital attire. Speech normal volume, rate and production. Coherent, logical and goal directed thought process. No TONI, no FOI. No TB/TW/ TI Denied auditory and visual hallucinations. Denied paranoid ideation, delusions or IOR. Memory intact Cognitionaverage Mood euthymic, affect full range, normal intensity, congruent with mood. Denies suicidal ideation, denies homicidal ideation. Insight partial; Judgement grossly intact Opioid withdrawal, resolving Opioid use disorder severe History of bipolar disorder(unlikely) Cluster B traits PLAN: Patient to be discharged today, at her request due to friend being able to pick her up today. Long discussion that opiates are not the correct medication for chronic pain. Increase gabapentin 400mg TID Pertinent Studies: none Procedures: none Patient Condition at Discharge: Stable Plan - Discharge Summary New Discharge Prescriptions: Gabapentin [Neurontin] 400 mg PO TID #90 cap hydrOXYzine PAMOATE [Vistaril] 25 mg PO Q6HR PRN #60 cap PRN Reason: Agitation Or Acute Anxiety Discharge Medication List Lisinopril 20 mg PO DAILY 10/15/15 [History] Propranolol HCl 20 mg PO BID 10/15/15 [History] Gabapentin [Neurontin] 400 mg PO TID #90 cap 08/30/16 [Rx] hydrOXYzine PAMOATE [Vistaril] 25 mg PO Q6HR PRN #60 cap 08/30/16 [Rx] Follow up Appointment(s)/Referral(s): None,Stated [Primary Care Provider] - 1-2 days Discharge Disposition: HOME SELF-CARE
[2016-08-30] MEDS ORDERED: GABAPENTIN 400 MG CAP PO SCH (16:00)
== END 2016-08-30 15:40 | disposition home or self-care (01) | DRG 897 ==
LOC: EC 07:04 → 3MHU 10:54
PROVIDERS: ADMIT Psychiatry & Neurology Addiction Medicine; ATTEND Psychiatry & Neurology Addiction Medicine
DX: F11.23 Opioid dependence with withdrawal (principal); R45.851 Suicidal ideations; I10 Essential (primary) hypertension; F17.200 Nicotine dependence, unspecified, uncomplicated; G40.909 Epilepsy, unspecified, not intractable, without status epilepticus; Z79.899 Other long term (current) drug therapy; J44.9 Chronic obstructive pulmonary disease, unspecified; J45.909 Unspecified asthma, uncomplicated; F41.9 Anxiety disorder, unspecified
CPT/HCPCS: 80053; 80306; 82075; 84443; 85025

== ENCOUNTER 2018-01-25 17:30 | Emergency (ER) | payer OTHER ==
[2018-01-25 17:49] VITALS: BP 176/77; PULSE 105; RESP 18; TEMP 98.5
[2018-01-25] MEDS ORDERED: ACET/COD 300 MG/30 MG STARTER PACK 6 TAB BTL PO STA (18:32)
[2018-01-25] MEDS ORDERED: ONDANSETRON ODT 4 MG TAB PO STA (18:33)
--- NOTE | 2018-01-25 18:36 | ED ---
ENT HPI - General Chief complaint: Dental/Oral Stated complaint: dental/shoulder pain Time Seen by Provider: 01/25/18 17:51 Source: patient, RN notes reviewed Mode of arrival: ambulatory Limitations: no limitations - History of Present Illness Initial comments: 47-year-old female presented emergency Department chief complaint of dental pain. Patient has poor dentition. Patient states she has swelling of her gums worried about abscess. Patient states she is in severe pain subjective fevers and chills. No difficult swallowing. No headache no neck pain no neck stiffness. - Related Data Home Medications Medication Instructions Recorded Confirmed Lisinopril 20 mg PO DAILY 10/15/15 01/25/18 ARIPiprazole [Abilify] 10 mg PO DAILY 01/25/18 01/25/18 Cyclobenzaprine [Flexeril] 10 mg PO TID PRN 01/25/18 01/25/18 Gabapentin 800 mg PO TID 01/25/18 01/25/18 Sertraline HCl [Zoloft] 25 mg PO DAILY 01/25/18 01/25/18 Previous Rx's Medication Instructions Recorded Ibuprofen [Motrin] 600 mg PO Q8HR PRN #30 tab 01/25/18 Penicillin V Potassium [Pen Vee K] 500 mg PO QID #40 tablet 01/25/18 Allergies Allergy/AdvReac Type Severity Reaction Status Date / Time Fish Containing Products Allergy Unknown Verified 01/25/18 17:56 [Fish] onion Allergy Anaphylaxis Verified 01/25/18 17:56 shellfish derived [Shellfish] Allergy Anaphylaxis Verified 01/25/18 17:56 venom-honey bee Allergy Anaphylaxis Verified 01/25/18 17:56 [bee venom (honey bee)] Review of Systems ROS Statement: Those systems with pertinent positive or pertinent negative responses have been documented in the HPI. ROS Other: All systems not noted in ROS Statement are negative. Past Medical History Past Medical History: COPD, GERD/Reflux, Hypertension, Musculoskeletal Disorder , Seizure Disorder Additional Past Medical History / Comment(s): ANXIETY, Depression, suicide attempt, Bipolar, Borderline Traits. Pt. states last seizure was 11/10/13 History of Any Multi-Drug Resistant Organisms: None Reported Past Surgical History: Tubal Ligation Additional Past Surgical History / Comment(s): "Tummy Tuck" Past Anesthesia/Blood Transfusion Reactions: No Reported Reaction Additional Past Anesthesia/Blood Transfusion Reaction / Comment(s): Unknown, patient poor historian. Past Psychological History: Anxiety, Bipolar, Depression Smoking Status: Current every day smoker Past Alcohol Use History: None Reported Past Drug Use History: None Reported, Heroin, Prescription Drug Abuse - Past Family History Father Additional Family Medical History / Comment(s): Father at age 63 with brain cancer and lung cancer. Mother Additional Family Medical History / Comment(s): Mother at age 54 due to a drunk driving car accident. Brother(s) Additional Family Medical History / Comment(s): Patient has 3 half brothers. One from a heroin overdose. 2 have no major medical problems. Sister(s) Additional Family Medical History / Comment(s): Patient has 6 half sisters that she does not have contact with. Daughter(s) Additional Family Medical History / Comment(s): Patient has 2 daughters and 1 son. She states she has not seen her 2 youngest children in 5 years as they were taken by their father to [place]. General Exam Limitations: no limitations General appearance: alert, in no apparent distress Head exam: Present: atraumatic, normocephalic, normal inspection Eye exam: Present: normal appearance, PERRL, EOMI. Absent: scleral icterus, conjunctival injection, periorbital swelling ENT exam: Present: mucous membranes moist, TM's normal bilaterally, normal external ear exam. Absent: normal oropharynx (Edentulous, multiple dental caries and dental fractures noted no drainable abscess.) Neck exam: Present: normal inspection, full ROM. Absent: tenderness, meningismus, lymphadenopathy Respiratory exam: Present: normal lung sounds bilaterally. Absent: respiratory distress, wheezes, rales, rhonchi, stridor Cardiovascular Exam: Present: regular rate, normal rhythm, normal heart sounds. Absent: systolic murmur, diastolic murmur, rubs, gallop, clicks Course Vital Signs 01/25/18 17:46 Temperature 98.5 F Pulse Rate 105 H Respiratory 18 Rate Blood Pressure 176/77 O2 Sat by Pulse 99 Oximetry Medical Decision Making - Medical Decision Making 47-year-old female presented for dental infections. Patient was started on Pen- Vee K, given a starter prescription of. Codeine, anti-inflammatories and Zofran. Disposition Clinical Impression: Fracture of tooth, Dental abscess Disposition: HOME SELF-CARE Condition: Stable Instructions: Dental Abscess (ED) Additional Instructions: Please return to the Emergency Department if symptoms worsen or any other concerns. Prescriptions: Ibuprofen [Motrin] 600 mg PO Q8HR PRN #30 tab PRN Reason: Pain Penicillin V Potassium [Pen Vee K] 500 mg PO QID #40 tablet Is patient prescribed a controlled substance at d/c from ED?: No Referrals: None,Stated [Primary Care Provider] - 1-2 days Time of Disposition: 18:35
== END 2018-01-25 18:36 | disposition home or self-care (01) ==
LOC: EC 17:30
DX: S02.5XXA Fracture of tooth (traumatic), initial encounter for closed fracture (principal); K04.7 Periapical abscess without sinus; M25.511 Pain in right shoulder; I10 Essential (primary) hypertension; G40.909 Epilepsy, unspecified, not intractable, without status epilepticus; F41.9 Anxiety disorder, unspecified; F32.9 Major depressive disorder, single episode, unspecified; F17.200 Nicotine dependence, unspecified, uncomplicated; Z79.899 Other long term (current) drug therapy; Z91.013 Allergy to seafood; Z91.018 Allergy to other foods; Z91.030 Bee allergy status; X58.XXXA Exposure to other specified factors, initial encounter
CPT/HCPCS: 99283

== ENCOUNTER 2018-01-30 18:33 | Emergency (ER) | payer OTHER ==
[2018-01-30] MEDS ORDERED: SODIUM CHLORIDE 0.9% 1,000 ML IV STA (18:58)
[2018-01-30] MEDS ORDERED: LORazepam 1 MG TAB PO STA (18:58)
--- NOTE | 2018-01-30 19:16 | ED ---
Chest Pain HPI - General Source: patient, RN notes reviewed, old records reviewed Mode of arrival: wheelchair Limitations: no limitations <Mere Velázquez - Last Filed: 01/30/18 20:12> <Julieta Hendrix - Last Filed: 01/30/18 21:44> - General Chief Complaint: Chest Pain Stated Complaint: Rt sided pain, SOB Time Seen by Provider: 01/30/18 18:51 - History of Present Illness Initial Comments: Is a 47-year-old female with a history of drug abuse presents emergency department today complaining of right-sided chest pain. She was seen in the emergency department 3 days ago for right-sided dental pain and dental abscess. She was discharged on Pen-Vee K. Patient states that since that time having pain within her jaw right-sided shoulder and chest and wall. Patient states that she is concerned her heart. Patient reports that she's had no recent fevers or chills. She denies any diaphoresis episodes. She appears quite anxious. She does smell of marijuana but denies any history of drug use. ( Mere Velázquez) - Related Data Home Medications Medication Instructions Recorded Confirmed Lisinopril 20 mg PO DAILY 10/15/15 01/30/18 ARIPiprazole [Abilify] 10 mg PO DAILY 01/25/18 01/30/18 Cyclobenzaprine [Flexeril] 10 mg PO TID PRN 01/25/18 01/30/18 Gabapentin 800 mg PO TID 01/25/18 01/30/18 Sertraline HCl [Zoloft] 25 mg PO DAILY 01/25/18 01/30/18 Previous Rx's Medication Instructions Recorded Ibuprofen [Motrin] 600 mg PO Q8HR PRN #30 tab 01/25/18 Penicillin V Potassium [Pen Vee K] 500 mg PO QID #40 tablet 01/25/18 Allergies Allergy/AdvReac Type Severity Reaction Status Date / Time Fish Containing Products Allergy Unknown Verified 01/30/18 19:13 [Fish] onion Allergy Anaphylaxis Verified 01/30/18 19:13 shellfish derived [Shellfish] Allergy Anaphylaxis Verified 01/30/18 19:13 venom-honey bee Allergy Anaphylaxis Verified 01/30/18 19:13 [bee venom (honey bee)] Review of Systems ROS Other: All systems not noted in ROS Statement are negative. <Smiley Velázquezily - Last Filed: 01/30/18 20:12> ROS Other: All systems not noted in ROS Statement are negative. <RumaJulieta - Last Filed: 01/30/18 21:44> ROS Statement: Those systems with pertinent positive or pertinent negative responses have been documented in the HPI. EKG Findings - EKG Comments: EKG Findings:: EKG performed at 1853 shows sinus tachycardia otherwise normal EKG. Ventricular rate of 1 oh 1 bpm. Intervals 142 ms QRS ration 80 ms. QT QTc is 350/453 ms. <EberMere - Last Filed: 01/30/18 20:12> Past Medical History Past Medical History: COPD, GERD/Reflux, Hypertension, Musculoskeletal Disorder , Seizure Disorder Additional Past Medical History / Comment(s): ANXIETY, Depression, suicide attempt, Bipolar, Borderline Traits. Pt. states last seizure was 11/10/13 History of Any Multi-Drug Resistant Organisms: None Reported Past Surgical History: Tubal Ligation Additional Past Surgical History / Comment(s): "Tummy Tuck" Past Anesthesia/Blood Transfusion Reactions: No Reported Reaction Additional Past Anesthesia/Blood Transfusion Reaction / Comment(s): Unknown, patient poor historian. Past Psychological History: Anxiety, Bipolar, Depression Smoking Status: Current every day smoker Past Alcohol Use History: None Reported Past Drug Use History: None Reported, Heroin, Prescription Drug Abuse - Past Family History Father Additional Family Medical History / Comment(s): Father at age 63 with brain cancer and lung cancer. Mother Additional Family Medical History / Comment(s): Mother at age 54 due to a drunk driving car accident. Brother(s) Additional Family Medical History / Comment(s): Patient has 3 half brothers. One from a heroin overdose. 2 have no major medical problems. Sister(s) Additional Family Medical History / Comment(s): Patient has 6 half sisters that she does not have contact with. Daughter(s) Additional Family Medical History / Comment(s): Patient has 2 daughters and 1 son. She states she has not seen her 2 youngest children in 5 years as they were taken by their father to [place]. <EberMere - Last Filed: 01/30/18 20:12> General Exam Limitations: no limitations General appearance: alert, in no apparent distress Head exam: Present: atraumatic, normocephalic, normal inspection Eye exam: Present: normal appearance, PERRL, EOMI. Absent: scleral icterus, conjunctival injection, periorbital swelling ENT exam: Present: normal exam, mucous membranes moist. Absent: normal oropharynx ( has poor oropharynx and dentition. Patient being treated for abscess over the upper right tooth.) Neck exam: Present: tenderness (Patient has tenderness to palpation over the right side of her neck). Absent: normal inspection, meningismus, lymphadenopathy Respiratory exam: Present: normal lung sounds bilaterally. Absent: respiratory distress, wheezes, rales, rhonchi, stridor Cardiovascular Exam: Present: regular rate, normal rhythm, normal heart sounds. Absent: systolic murmur, diastolic murmur, rubs, gallop, clicks GI/Abdominal exam: Present: soft Extremities exam: Present: normal inspection, full ROM, normal capillary refill. Absent: tenderness, pedal edema, joint swelling, calf tenderness Right Shoulder Exam: Present: normal inspection, full ROM ([place] has tenderness palpation over the right chest wall and shoulder. Pain with range of motion of the shoulder but she is able to do full range of motion.) Upper Arm exam: Present: normal inspection, full ROM Elbow exam: Present: normal inspection, full ROM Forearm Wrist exam: Present: normal inspection, full ROM Hand Wrist exam: Present: normal inspection, full ROM Back exam: Present: normal inspection Neurological exam: Present: alert, oriented X3, CN II-XII intact Psychiatric exam: Present: normal affect, normal mood Skin exam: Present: warm, dry, intact, normal color. Absent: rash <Mere Velázquez - Last Filed: 01/30/18 20:12> <Julieta Hendrix - Last Filed: 01/30/18 21:44> - General Exam Comments Initial Comments: This 47-year-old female. Patient is anxious. (Mere Velázquez) Vital Signs 01/30/18 01/30/18 01/30/18 18:41 19:30 20:00 Temperature 98.7 F Pulse Rate 114 H 84 Respiratory 22 18 18 Rate Blood Pressure 195/87 153/91 145/75 O2 Sat by Pulse 98 98 99 Oximetry 01/30/18 01/30/18 01/30/18 20:30 21:00 21:30 Temperature Pulse Rate 81 88 Respiratory 7 L 12 Rate Blood Pressure 157/89 147/92 147/92 O2 Sat by Pulse 100 Oximetry Chest Pain MDM <EberMere - Last Filed: 01/30/18 20:12> <Julieta Hendrix - Last Filed: 01/30/18 21:44> - MDM 47-year-old female with chief complaint of right-sided chest pain. She was bit anxious P she complains of right-sided jaw pain radiating towards her chest. She believes it was related to a dental infection earlier in the week. She was started on Pen-Vee K at that time. She recommends the emergency department quite anxious. Patient EKG was reviewed and negative for any acute process. At this time, 8:14 PM patient's Transfer to [facility] for final disposition. (Mere Velázquez) Chest x-ray impression: Normal chest. No change. CT entered chest findings: Lungs are clear of consolidation. There is no pleural effusion. There is minimal pulmonary emphysema. There is normal contrast opacification of the pulmonary arteries. There are no filling defects. There is no mediastinal adenopathy. There are no hilar masses. There is no evidence of aortic aneurysm or dissection. The bony thorax appears intact. There is 1.6 cm sensory spleen noted. Impression: No evidence of pulmonary embolism. There is clearing of the pleural fluid and basilar pulmonary infiltrates and atelectasis compared to old exam. This is a 47-year-old female who presented to the emergency department with chief complaint of right-sided chest pain. There is tenderness on palpation of the right chest wall. Troponin was negative. D-dimer was slightly elevated at 0.68. Patient was sent for a CTA of the chest which revealed no evidence for pulmonary embolism. CBC reveals a slightly elevated white count. No significant abnormalities of the CMP or UA. BNP is within normal limits. Vital signs have stabilized. Pain is controlled. Case discussed with attending physician, Dr. Tavares. Patient will be discharged home at this time. I instructed the patient to follow up with her primary care provider. Patient is very anxious about having a stroke or a heart attack. I reassured patient that there is no evidence of this. She is in no acute distress and will be discharged home at this time. She is in agreement with plan and voices understanding. All questions were answered. (Julieta Hendrix) Disposition <Mere Velázquez - Last Filed: 01/30/18 20:12> Is patient prescribed a controlled substance at d/c from ED?: No Time of Disposition: 21:44 <Jluieta Hendrix - Last Filed: 01/30/18 21:44> Clinical Impression: Atypical chest pain, Chest wall pain Disposition: HOME SELF-CARE Condition: Good Instructions: Chest Pain (ED), Chest Wall Pain (ED) Additional Instructions: Please follow up with primary care provider within 1-2 days. Return to emergency department if symptoms should worsen or any concerns arise. Referrals: None,Stated [Primary Care Provider] - 1-2 days
[2018-01-30 19:58] LABS: Basophils # (A) 0.1 k/uL (0-0.2); Basophils % (A) 0 %; Eosinophils # (A) 0.3 k/uL (0-0.7); Eosinophils % (A) 2 %; HCT 38.4 % (34.0-46.0); HGB 12.7 gm/dL (11.4-16.0); Lymphocytes # (A) 3.8 k/uL (1.0-4.8); Lymphocytes % (A) 26 %; MCH 29.6 pg (25.0-35.0); MCV 89.9 fL (80.0-100.0); Mean Platelet Volume 7.4; Monocytes # (A) 0.5 k/uL (0-1.0); Monocytes % (A) 4 %; Neutrophils # (A) 9.5 k/uL (1.3-7.7); Neutrophils % (A) 66 %; Platelet Count 355 k/uL (150-450); RBC 4.27 m/uL (3.80-5.40); RDW 14.9 % (11.5-15.5); WBC 14.4 k/uL (3.8-10.6)
[2018-01-30 20:10] LABS: ALT 15 U/L (9-52); AST 23 U/L (14-36); Albumin 3.8 g/dL (3.5-5.0); Alkaline Phosphatase 75 U/L (38-126); Amphetamine Screen,Urine Not Detected (NotDetected); Amylase 60 U/L (30-110); Anion Gap 8 mmol/L; Blood Urea Nitrogen 9 mg/dL (7-17); Calcium 9.2 mg/dL (8.4-10.2); Carbon Dioxide 26 mmol/L (22-30); Chloride 103 mmol/L (98-107); Cocaine Screen,Urine Not Detected (NotDetected); Glucose 104 mg/dL (74-99); Lipase 62 U/L (23-300); Magnesium 1.8 mg/dL (1.6-2.3); Opiate Screen,Urine Not Detected (NotDetected); Phencyclidine Screen,Urine Not Detected (NotDetected); Potassium 4.3 mmol/L (3.5-5.1); Sodium 137 mmol/L (137-145); Total Bilirubin 0.3 mg/dL (0.2-1.3); Total Protein 7.1 g/dL (6.3-8.2); Urn Cannabinoid Scrn Not Detected (NotDetected)
[2018-01-30 20:11] LABS: Barbiturate Screen,Urine Not Detected (NotDetected); Benzodiazepines Screen,Urine Detected (NotDetected); Methadone Screen, Urine Not Detected (NotDetected); Oxycodone Screen, Urine Not Detected (NotDetected); Tricyclic Antidepressant,Urine Not Detected (NotDetected)
[2018-01-30 20:22] LABS: INR 0.9 (<1.2); Prothrombin Time 9.5 sec (9.0-12.0)
[2018-01-30 20:25] LABS: Creatine Kinase 181 U/L (30-135)
[2018-01-30] MEDS ORDERED: KETOROLAC 30 MG/ML 1 ML VIAL IVP STA (20:25)
[2018-01-30 20:39] LABS: Creatine Kinase MB 0.8 ng/mL (0.0-2.4); Troponin I <0.012 ng/mL (0.000-0.034)
[2018-01-30 20:45] LABS: D-Dimer 0.68 mg/L FEU (<0.60)
--- NOTE | 2018-01-30 20:48 | XR ---
EXAMINATION TYPE: XR chest 2V DATE OF EXAM: 01/30/2018 COMPARISON: 04/26/2016 HISTORY: Chest pain TECHNIQUE: Frontal and lateral views of the chest are obtained. FINDINGS: Heart and mediastinum are normal. Lungs are clear. Diaphragm is normal. Bony thorax is int act. IMPRESSION: Normal chest. No change.
--- NOTE | 2018-01-30 21:28 | CT ---
EXAMINATION TYPE: CT angio chest DATE OF EXAM: 01/30/2018 9:20 PM COMPARISON: 12/06/2015 HISTORY: chest pain, SOB, right sided jaw pain CT DLP: 345.8 mGycm Automated exposure control for dose reduction was used. CONTRAST: CTA scan of the thorax is performed with IV Contrast, patient injected with 63 mL of Isovue 370, pulm onary embolism protocol. There are 3-D post processed images.. FINDINGS: The lungs are clear of consolidation. There is no pleural effusion. There is minimal pulmonary emphys abdias. There is normal contrast opacification of the pulmonary arteries. There are no filling defects. There is no mediastinal adenopathy. There are no hilar masses. There is no evidence of aortic aneurys m or dissection. The bony thorax appears intact. There is 1.6 cm accessory spleen noted. IMPRESSION: NO EVIDENCE OF PULMONARY EMBOLISM. THERE IS CLEARING OF THE PLEURAL FLUID AND BASILAR PULMONARY INFIL TRATES AND ATELECTASIS COMPARED TO OLD EXAM.
[2018-01-30] MEDS ORDERED: MORPHINE SULFATE 4 MG/ML SYRINGE IVP STA (21:29)
[2018-01-30 23:05] VITALS: BP 156/97; PULSE 86; RESP 20; TEMP 97.9
== END 2018-01-30 23:05 | disposition home or self-care (01) ==
LOC: EC 18:33
DX: R07.89 Other chest pain (principal); R68.84 Jaw pain; R91.8 Other nonspecific abnormal finding of lung field; J98.11 Atelectasis; R79.1 Abnormal coagulation profile; D72.829 Elevated white blood cell count, unspecified; K04.7 Periapical abscess without sinus; M25.511 Pain in right shoulder; I10 Essential (primary) hypertension; G40.909 Epilepsy, unspecified, not intractable, without status epilepticus; F31.9 Bipolar disorder, unspecified; F41.9 Anxiety disorder, unspecified; F17.200 Nicotine dependence, unspecified, uncomplicated; Z91.013 Allergy to seafood; Z91.018 Allergy to other foods; Z91.030 Bee allergy status; Z79.899 Other long term (current) drug therapy; Z80.1 Family history of malignant neoplasm of trachea, bronchus and lung
CPT/HCPCS: 36415; 93005; 85379; 83880; 80053; 82150; 82550; 82553; 83690; 83735; 84484; 85025; 85610; 85730; 80306; 71046; 71275; 99285; 96374; 96375; 96361; J2270; J1885; Q9967

== ENCOUNTER 2018-02-08 15:56 | Emergency (ER) | payer OTHER ==
--- NOTE | 2018-02-08 16:45 | ED ---
General Adult HPI - General Chief complaint: Chest Pain Stated complaint: Chest Pain, Arm Numbness Time Seen by Provider: 02/08/18 16:17 Source: patient, RN notes reviewed, old records reviewed Mode of arrival: wheelchair Limitations: no limitations - History of Present Illness Initial comments: 47-year-old female presents for evaluation of chest pain and right upper extremity pain. Patient's symptoms have been ongoing for the past several weeks. They have been constant throughout the day. Patient is denies exertional component to her pain. Describes the pain as a throbbing aching sensation in her right shoulder. No abdominal pain. No nausea vomiting. No fever chills. No cough. No injury. No central chest pain or left-sided chest pain. No history of CAD. Patient does report to shooting pain into her right arm which she believes comes from her neck. Patient also admits that she has been quite stressed and anxious over the past several weeks as well. - Related Data Home Medications Medication Instructions Recorded Confirmed Lisinopril 20 mg PO DAILY 10/15/15 02/08/18 Cyclobenzaprine [Flexeril] 10 mg PO TID PRN 01/25/18 02/08/18 Gabapentin 800 mg PO TID 01/25/18 02/08/18 ARIPiprazole [Abilify] 15 mg PO DAILY 02/08/18 02/08/18 Albuterol Inhaler [Ventolin Hfa 2 puff INHALATION RT-BID 02/08/18 02/08/18 Inhaler] Ibuprofen [Advil] 400 mg PO DAILY 02/08/18 02/08/18 Multivitamins, Thera [Multivitamin 1 tab PO DAILY 02/08/18 02/08/18 (formulary)] Naproxen Sodium [Aleve] 220 mg PO Q12HR 02/08/18 02/08/18 clonazePAM 1 mg PO TID 02/08/18 02/08/18 traMADol HCL [Ultram] 100 mg PO Q6HR PRN 02/08/18 02/08/18 Previous Rx's Medication Instructions Recorded Ibuprofen [Motrin] 600 mg PO Q8HR PRN #30 tab 01/25/18 Ibuprofen [Motrin] 600 mg PO Q8HR PRN #24 tab 02/08/18 Allergies Allergy/AdvReac Type Severity Reaction Status Date / Time Fish Containing Products Allergy Unknown Verified 02/08/18 16:32 [Fish] onion Allergy Anaphylaxis Verified 02/08/18 16:32 shellfish derived [Shellfish] Allergy Anaphylaxis Verified 02/08/18 16:32 venom-honey bee Allergy Anaphylaxis Verified 02/08/18 16:32 [bee venom (honey bee)] Review of Systems ROS Statement: Those systems with pertinent positive or pertinent negative responses have been documented in the HPI. ROS Other: All systems not noted in ROS Statement are negative. Past Medical History Past Medical History: COPD, GERD/Reflux, Hypertension, Musculoskeletal Disorder , Seizure Disorder Additional Past Medical History / Comment(s): ANXIETY, Depression, suicide attempt, Bipolar, Borderline Traits. Pt. states last seizure was 11/10/13 History of Any Multi-Drug Resistant Organisms: None Reported Past Surgical History: Tubal Ligation Additional Past Surgical History / Comment(s): "Tummy Tuck" Past Anesthesia/Blood Transfusion Reactions: No Reported Reaction Additional Past Anesthesia/Blood Transfusion Reaction / Comment(s): Unknown, patient poor historian. Past Psychological History: Anxiety, Bipolar, Depression Smoking Status: Current every day smoker Past Alcohol Use History: None Reported Past Drug Use History: Heroin, Prescription Drug Abuse - Past Family History Father Additional Family Medical History / Comment(s): Father at age 63 with brain cancer and lung cancer. Mother Additional Family Medical History / Comment(s): Mother at age 54 due to a drunk driving car accident. Brother(s) Additional Family Medical History / Comment(s): Patient has 3 half brothers. One from a heroin overdose. 2 have no major medical problems. Sister(s) Additional Family Medical History / Comment(s): Patient has 6 half sisters that she does not have contact with. Daughter(s) Additional Family Medical History / Comment(s): Patient has 2 daughters and 1 son. She states she has not seen her 2 youngest children in 5 years as they were taken by their father to [place]. General Exam Limitations: no limitations General appearance: alert, in no apparent distress Head exam: Present: atraumatic, normocephalic Eye exam: Present: normal appearance, PERRL, EOMI ENT exam: Present: normal exam Neck exam: Present: normal inspection, tenderness (Right paraspinal and trapezius tenderness to palpation), full ROM. Absent: meningismus Respiratory exam: Present: normal lung sounds bilaterally. Absent: respiratory distress, wheezes Cardiovascular Exam: Present: regular rate, normal rhythm GI/Abdominal exam: Present: soft. Absent: distended, tenderness, guarding Extremities exam: Present: normal inspection, normal capillary refill, other ( Right extremity: Normal pulse, normal teleprinter strength, 5 out of 5 strength, no numbness) Back exam: Present: normal inspection, full ROM Neurological exam: Present: alert, oriented X3, CN II-XII intact. Absent: motor sensory deficit Psychiatric exam: Present: normal affect, normal mood Skin exam: Present: warm, dry, intact. Absent: cyanosis, diaphoretic Course Vital Signs 02/08/18 02/08/18 02/08/18 16:11 17:44 19:02 Temperature 98.5 F Pulse Rate 111 H 90 90 Respiratory 18 20 18 Rate Blood Pressure 174/96 143/93 159/99 O2 Sat by Pulse 97 99 97 Oximetry EKG Findings - EKG Comments: EKG Findings:: EKG: Normal sinus rhythm, rate of 99, DE interval 150, QRS duration 80, QTc [address] segment elevation or depression Medical Decision Making - Medical Decision Making 47-year-old female presents for reevaluation of right shoulder pain and pain in her right neck and trapezius. Patient had workup in the emergency department for chest pain within the past several weeks including complete set of laboratory studies, she did have an elevated d-dimer and CT angiography was obtained on 1016 which was negative for any acute process including no pulmonary embolism, no vascular pathology noted. Laboratory studies today reveal white blood cell count of 11.8 which is down trending from previous, normal hemoglobin, normal CMP, troponin is negative. Patient did have some tenderness in the right trapezius and paraspinal muscles, CT the neck was obtained which shows some spurring, no fracture subluxation. Chest x-ray is clear. Patient's symptoms have been constant for the past 2 weeks, given the negative troponin this is reassuring for noncardiac cause of her pain. She is given Toradol and on reevaluation administered Valium for her pain. She is feeling better, she will follow-up with her primary care physician, continue anti-inflammatories. - Lab Data Result diagrams: 02/08/18 17:01 02/08/18 17:01 Lab Results 02/08/18 02/08/18 02/08/18 Range/Units 17:01 17:01 17:01 WBC 11.8 H (3.8-10.6) k/uL RBC 4.19 (3.80-5.40) m/uL Hgb 12.3 (11.4-16.0) gm/dL Hct 37.5 (34.0-46.0) % MCV 89.4 (80.0-100.0) fL MCH 29.4 (25.0-35.0) pg MCHC 32.9 (31.0-37.0) g/dL RDW 14.6 (11.5-15.5) % Plt Count 430 (150-450) k/uL Neutrophils % 69 % Lymphocytes % 24 % Monocytes % 4 % Eosinophils % 2 % Basophils % 0 % Neutrophils # 8.1 H (1.3-7.7) k/uL Lymphocytes # 2.8 (1.0-4.8) k/uL Monocytes # 0.5 (0-1.0) k/uL Eosinophils # 0.3 (0-0.7) k/uL Basophils # 0.0 (0-0.2) k/uL PT (9.0-12.0) sec INR (<1.2) APTT (22.0-30.0) sec Sodium 137 (137-145) mmol/L Potassium 4.0 (3.5-5.1) mmol/L Chloride 104 (98-107) mmol/L Carbon Dioxide 23 (22-30) mmol/L Anion Gap 10 mmol/L BUN 7 (7-17) mg/dL Creatinine 0.62 (0.52-1.04) mg/dL Est GFR (CKD-EPI)AfAm >90 (>60 ml/min/1.73 sqM) Est GFR (CKD-EPI)NonAf >90 (>60 ml/min/1.73 sqM) Glucose 102 H (74-99) mg/dL Calcium 9.6 (8.4-10.2) mg/dL Magnesium 1.9 (1.6-2.3) mg/dL Total Bilirubin 0.4 (0.2-1.3) mg/dL AST 30 (14-36) U/L ALT 19 (9-52) U/L Alkaline Phosphatase 77 (38-126) U/L Total Creatine Kinase 171 H (30-135) U/L CK-MB (CK-2) 0.8 (0.0-2.4) ng/mL CK-MB (CK-2) Rel Index 0.5 Troponin I <0.012 (0.000-0.034) ng/mL NT-Pro-B Natriuret Pep pg/mL Total Protein 7.6 (6.3-8.2) g/dL Albumin 4.1 (3.5-5.0) g/dL Lipase 53 (23-300) U/L 02/08/18 02/08/18 Range/Units 17:01 17:01 WBC (3.8-10.6) k/uL RBC (3.80-5.40) m/uL Hgb (11.4-16.0) gm/dL Hct (34.0-46.0) % MCV (80.0-100.0) fL MCH (25.0-35.0) pg MCHC (31.0-37.0) g/dL RDW (11.5-15.5) % Plt Count (150-450) k/uL Neutrophils % % Lymphocytes % % Monocytes % % Eosinophils % % Basophils % % Neutrophils # (1.3-7.7) k/uL Lymphocytes # (1.0-4.8) k/uL Monocytes # (0-1.0) k/uL Eosinophils # (0-0.7) k/uL Basophils # (0-0.2) k/uL PT 9.6 (9.0-12.0) sec INR 1.0 (<1.2) APTT 24.4 (22.0-30.0) sec Sodium (137-145) mmol/L Potassium (3.5-5.1) mmol/L Chloride (98-107) mmol/L Carbon Dioxide (22-30) mmol/L Anion Gap mmol/L BUN (7-17) mg/dL Creatinine (0.52-1.04) mg/dL Est GFR (CKD-EPI)AfAm (>60 ml/min/1.73 sqM) Est GFR (CKD-EPI)NonAf (>60 ml/min/1.73 sqM) Glucose (74-99) mg/dL Calcium (8.4-10.2) mg/dL Magnesium (1.6-2.3) mg/dL Total Bilirubin (0.2-1.3) mg/dL AST (14-36) U/L ALT (9-52) U/L Alkaline Phosphatase (38-126) U/L Total Creatine Kinase (30-135) U/L CK-MB (CK-2) (0.0-2.4) ng/mL CK-MB (CK-2) Rel Index Troponin I (0.000-0.034) ng/mL NT-Pro-B Natriuret Pep 38 pg/mL Total Protein (6.3-8.2) g/dL Albumin (3.5-5.0) g/dL Lipase (23-300) U/L Disposition Clinical Impression: Atypical chest pain, Cervical radiculopathy Disposition: HOME SELF-CARE Condition: Good Instructions: Chest Pain (ED), Spasmodic Torticollis (ED) Prescriptions: Ibuprofen [Motrin] 600 mg PO Q8HR PRN #24 tab PRN Reason: Pain Is patient prescribed a controlled substance at d/c from ED?: No Referrals: None,Stated [Primary Care Provider] - 1-2 days Swathi Enrique MD [REFERRING] - 1-2 days Time of Disposition: 19:19
[2018-02-08] MEDS ORDERED: SODIUM CHLORIDE 0.9% 500 ML 500 ML IV ONE (16:46)
[2018-02-08 17:21] LABS: Basophils % (A) 0 %; Eosinophils # (A) 0.3 k/uL (0-0.7); Eosinophils % (A) 2 %; HCT 37.5 % (34.0-46.0); HGB 12.3 gm/dL (11.4-16.0); Lymphocytes # (A) 2.8 k/uL (1.0-4.8); Lymphocytes % (A) 24 %; MCH 29.4 pg (25.0-35.0); MCHC 32.9 g/dL (31.0-37.0); MCV 89.4 fL (80.0-100.0); Mean Platelet Volume 6.7; Monocytes # (A) 0.5 k/uL (0-1.0); Monocytes % (A) 4 %; Neutrophils # (A) 8.1 k/uL (1.3-7.7); Neutrophils % (A) 69 %; Platelet Count 430 k/uL (150-450); RBC 4.19 m/uL (3.80-5.40); RDW 14.6 % (11.5-15.5); WBC 11.8 k/uL (3.8-10.6)
[2018-02-08 17:25] LABS: Partial Thromboplastin Time 24.4 sec (22.0-30.0); Prothrombin Time 9.6 sec (9.0-12.0)
--- NOTE | 2018-02-08 17:34 | CT ---
EXAMINATION TYPE: CT cervical spine wo con DATE OF EXAM: 02/08/2018 COMPARISON: None HISTORY: LEFT SHOULDER PAIN/ARM NUMBNESS CT DLP: 339.3 mGycm Automated exposure control for dose reduction was used. TECHNIQUE: CT scan of the cervical spine is obtained without contrast, axial images are obtained, sa gittal and coronal reformatted images are also reviewed. FINDINGS: There is straightening of the vertebra. There is mild spurring of the endplates at C5-6 C6- 7. Posterior elements are intact. Facet joints are intact. There is no significant facet arthropathy. The skull base is intact. IMPRESSION: Negative CT scan of the cervical spine for fracture. Minor degenerative spur formation. T here is some straightening at can be associated with spasm.
--- NOTE | 2018-02-08 17:35 | XR ---
EXAMINATION TYPE: XR chest 2V DATE OF EXAM: 02/08/2018 COMPARISON: 01/30/2018 HISTORY: Chest pain TECHNIQUE: Frontal and lateral views of the chest are obtained. FINDINGS: Heart and mediastinum are normal. Lungs are clear. Diaphragm is normal. There are chest le ads. Bony thorax is intact. IMPRESSION: Normal chest. No change.
[2018-02-08 17:36] LABS: Creatine Kinase 171 U/L (30-135)
[2018-02-08] MEDS ORDERED: KETOROLAC 30 MG/ML 1 ML VIAL IVP STA (17:37)
[2018-02-08 17:44] VITALS: PULSE 90
[2018-02-08 17:49] LABS: Creatine Kinase MB 0.8 ng/mL (0.0-2.4); Troponin I <0.012 ng/mL (0.000-0.034)
[2018-02-08 17:54] LABS: ALT 19 U/L (9-52); AST 30 U/L (14-36); Albumin 4.1 g/dL (3.5-5.0); Alkaline Phosphatase 77 U/L (38-126); Anion Gap 10 mmol/L; Blood Urea Nitrogen 7 mg/dL (7-17); Calcium 9.6 mg/dL (8.4-10.2); Carbon Dioxide 23 mmol/L (22-30); Chloride 104 mmol/L (98-107); Glucose 102 mg/dL (74-99); Lipase 53 U/L (23-300); Magnesium 1.9 mg/dL (1.6-2.3); Sodium 137 mmol/L (137-145); Total Bilirubin 0.4 mg/dL (0.2-1.3); Total Protein 7.6 g/dL (6.3-8.2)
[2018-02-08] MEDS ORDERED: DIAZEPAM 5 MG/ML 2 ML INJ IVP STA (18:38)
[2018-02-09 05:57] VITALS: BP 126/82; RESP 19; TEMP 98.1
== END 2018-02-08 20:08 | disposition home or self-care (01) ==
LOC: EC 15:56
DX: M54.12 Radiculopathy, cervical region (principal); R07.89 Other chest pain; R79.1 Abnormal coagulation profile; J44.9 Chronic obstructive pulmonary disease, unspecified; I10 Essential (primary) hypertension; G40.909 Epilepsy, unspecified, not intractable, without status epilepticus; F31.9 Bipolar disorder, unspecified; F41.9 Anxiety disorder, unspecified; F17.200 Nicotine dependence, unspecified, uncomplicated; Z79.1 Long term (current) use of non-steroidal anti-inflammatories (NSAID); Z79.899 Other long term (current) drug therapy; Z91.013 Allergy to seafood; Z91.018 Allergy to other foods; Z91.030 Bee allergy status
CPT/HCPCS: 36415; 93005; 83880; 80053; 82550; 82553; 83690; 83735; 84484; 85025; 85610; 85730; 71046; 72125; 99285; 96374; 96375; J3360; J1885

== ENCOUNTER 2018-02-14 15:51 | Emergency (ER) | payer OTHER ==
--- NOTE | 2018-02-14 16:35 | ED ---
General Adult HPI - General Chief complaint: Psychiatric Symptoms Stated complaint: Mental Health Time Seen by Provider: 02/14/18 16:02 Source: patient, RN notes reviewed, old records reviewed Mode of arrival: ambulatory Limitations: no limitations - History of Present Illness Initial comments: 47-year-old female presenting for evaluation of anxiety and suicidal ideation. Patient denies specific plan. She states she just does not want to wake up. She is been out of her medications for approximately one month which include Zoloft, and Abilify. She has known psychiatric disease and has been admitted on several occasions in the past. Denies any ingestion today. Denies self- harm today. No physical complaints. - Related Data Home Medications Medication Instructions Recorded Confirmed Lisinopril 20 mg PO DAILY 10/15/15 02/14/18 Gabapentin 800 mg PO TID 01/25/18 02/14/18 ARIPiprazole [Abilify] 15 mg PO DAILY 02/08/18 02/14/18 clonazePAM 1 mg PO TID 02/08/18 02/14/18 traMADol HCL [Ultram] 100 mg PO Q6HR PRN 02/08/18 02/14/18 [place] Carbonate 300 mg PO BID 02/14/18 02/14/18 Sertraline [Zoloft] 100 mg PO DAILY 02/14/18 02/14/18 Allergies Allergy/AdvReac Type Severity Reaction Status Date / Time Fish Containing Products Allergy Unknown Verified 02/14/18 16:38 [Fish] onion Allergy Anaphylaxis Verified 02/14/18 16:38 shellfish derived [Shellfish] Allergy Anaphylaxis Verified 02/14/18 16:38 venom-honey bee Allergy Anaphylaxis Verified 02/14/18 16:38 [bee venom (honey bee)] Review of Systems ROS Statement: Those systems with pertinent positive or pertinent negative responses have been documented in the HPI. ROS Other: All systems not noted in ROS Statement are negative. Past Medical History Past Medical History: COPD, GERD/Reflux, Hypertension, Musculoskeletal Disorder , Seizure Disorder Additional Past Medical History / Comment(s): ANXIETY, Depression, suicide attempt, Bipolar, Borderline Traits. Pt. states last seizure was 11/10/13 History of Any Multi-Drug Resistant Organisms: None Reported Past Surgical History: Tubal Ligation Additional Past Surgical History / Comment(s): "Tummy Tuck" Past Anesthesia/Blood Transfusion Reactions: No Reported Reaction Additional Past Anesthesia/Blood Transfusion Reaction / Comment(s): Unknown, patient poor historian. Past Psychological History: Anxiety, Bipolar, Depression Smoking Status: Current every day smoker Past Alcohol Use History: None Reported Past Drug Use History: Heroin, Prescription Drug Abuse - Past Family History Father Additional Family Medical History / Comment(s): Father at age 63 with brain cancer and lung cancer. Mother Additional Family Medical History / Comment(s): Mother at age 54 due to a drunk driving car accident. Brother(s) Additional Family Medical History / Comment(s): Patient has 3 half brothers. One from a heroin overdose. 2 have no major medical problems. Sister(s) Additional Family Medical History / Comment(s): Patient has 6 half sisters that she does not have contact with. Daughter(s) Additional Family Medical History / Comment(s): Patient has 2 daughters and 1 son. She states she has not seen her 2 youngest children in 5 years as they were taken by their father to [place]. General Exam Limitations: no limitations General appearance: alert, in no apparent distress, anxious Head exam: Present: atraumatic, normocephalic Eye exam: Present: normal appearance, PERRL ENT exam: Present: normal exam Neck exam: Present: normal inspection. Absent: tenderness Respiratory exam: Present: normal lung sounds bilaterally. Absent: respiratory distress, wheezes Cardiovascular Exam: Present: regular rate, normal rhythm GI/Abdominal exam: Present: soft. Absent: distended, tenderness Extremities exam: Present: normal inspection, normal capillary refill. Absent: pedal edema Neurological exam: Present: alert, oriented X3, CN II-XII intact. Absent: motor sensory deficit Psychiatric exam: Present: anxious, suicidal ideation Skin exam: Present: warm, dry, intact. Absent: cyanosis, diaphoretic Course Vital Signs 02/14/18 02/14/18 02/14/18 15:59 20:34 22:51 Temperature 98.5 F 98.1 F 99.4 F Pulse Rate 108 H 101 H 91 Respiratory 22 18 18 Rate Blood Pressure 163/94 137/76 121/70 O2 Sat by Pulse 100 98 96 Oximetry Medical Decision Making - Medical Decision Making 37-year-old female with depression and suicidal ideation. Patient evaluated by EPS, will be transferred for further psychiatric care. - Lab Data Result diagrams: 02/14/18 21:10 02/14/18 21:10 Lab Results 02/14/18 02/14/18 02/14/18 Range/Units 16:45 16:45 21:10 WBC 14.6 H (3.8-10.6) k/uL RBC 4.10 (3.80-5.40) m/uL Hgb 12.3 (11.4-16.0) gm/dL Hct 36.8 (34.0-46.0) % MCV 89.9 (80.0-100.0) fL MCH 30.0 (25.0-35.0) pg MCHC 33.3 (31.0-37.0) g/dL RDW 14.2 (11.5-15.5) % Plt Count 386 (150-450) k/uL Neutrophils % 68 % Lymphocytes % 23 % Monocytes % 4 % Eosinophils % 3 % Basophils % 0 % Neutrophils # 9.9 H (1.3-7.7) k/uL Lymphocytes # 3.3 (1.0-4.8) k/uL Monocytes # 0.6 (0-1.0) k/uL Eosinophils # 0.5 (0-0.7) k/uL Basophils # 0.0 (0-0.2) k/uL Sodium (137-145) mmol/L Potassium (3.5-5.1) mmol/L Chloride (98-107) mmol/L Carbon Dioxide (22-30) mmol/L Anion Gap mmol/L BUN (7-17) mg/dL Creatinine (0.52-1.04) mg/dL Est GFR (CKD-EPI)AfAm (>60 ml/min/1.73 sqM) Est GFR (CKD-EPI)NonAf (>60 ml/min/1.73 sqM) Glucose (74-99) mg/dL Calcium (8.4-10.2) mg/dL Total Bilirubin (0.2-1.3) mg/dL AST (14-36) U/L ALT (9-52) U/L Alkaline Phosphatase (38-126) U/L Total Protein (6.3-8.2) g/dL Albumin (3.5-5.0) g/dL Urine Color Colorless Urine Appearance Clear (Clear) Urine pH 6.5 (5.0-8.0) Ur Specific Deal 1.006 (1.001-1.035) Urine Protein Negative (Negative) Urine Glucose (UA) Negative (Negative) Urine Ketones Negative (Negative) Urine Blood Negative (Negative) Urine Nitrite Negative (Negative) Urine Bilirubin Negative (Negative) Urine Urobilinogen <2.0 (<2.0) mg/dL Ur Leukocyte Esterase Negative (Negative) Urine Opiates Screen Not Detected (NotDetected) Ur Oxycodone Screen Not Detected (NotDetected) Urine Methadone Screen Not Detected (NotDetected) Ur Propoxyphene Screen Not Detected (NotDetected) Ur Barbiturates Screen Not Detected (NotDetected) U Tricyclic Antidepress Not Detected (NotDetected) Ur Phencyclidine Scrn Not Detected (NotDetected) Ur Amphetamines Screen Not Detected (NotDetected) U Methamphetamines Scrn Not Detected (NotDetected) U Benzodiazepines Scrn Detected H (NotDetected) Urine Cocaine Screen Not Detected (NotDetected) U Marijuana (THC) Screen Not Detected (NotDetected) 02/14/18 Range/Units 21:10 WBC (3.8-10.6) k/uL RBC (3.80-5.40) m/uL Hgb (11.4-16.0) gm/dL Hct (34.0-46.0) % MCV (80.0-100.0) fL MCH (25.0-35.0) pg MCHC (31.0-37.0) g/dL RDW (11.5-15.5) % Plt Count (150-450) k/uL Neutrophils % % Lymphocytes % % Monocytes % % Eosinophils % % Basophils % % Neutrophils # (1.3-7.7) k/uL Lymphocytes # (1.0-4.8) k/uL Monocytes # (0-1.0) k/uL Eosinophils # (0-0.7) k/uL Basophils # (0-0.2) k/uL Sodium 136 L (137-145) mmol/L Potassium 3.7 (3.5-5.1) mmol/L Chloride 103 (98-107) mmol/L Carbon Dioxide 26 (22-30) mmol/L Anion Gap 7 mmol/L BUN 6 L (7-17) mg/dL Creatinine 0.62 (0.52-1.04) mg/dL Est GFR (CKD-EPI)AfAm >90 (>60 ml/min/1.73 sqM) Est GFR (CKD-EPI)NonAf >90 (>60 ml/min/1.73 sqM) Glucose 118 H (74-99) mg/dL Calcium 9.2 (8.4-10.2) mg/dL Total Bilirubin 0.2 (0.2-1.3) mg/dL AST 21 (14-36) U/L ALT 20 (9-52) U/L Alkaline Phosphatase 80 (38-126) U/L Total Protein 6.8 (6.3-8.2) g/dL Albumin 3.7 (3.5-5.0) g/dL Urine Color Urine Appearance (Clear) Urine pH (5.0-8.0) Ur Specific Deal (1.001-1.035) Urine Protein (Negative) Urine Glucose (UA) (Negative) Urine Ketones (Negative) Urine Blood (Negative) Urine Nitrite (Negative) Urine Bilirubin (Negative) Urine Urobilinogen (<2.0) mg/dL Ur Leukocyte Esterase (Negative) Urine Opiates Screen (NotDetected) Ur Oxycodone Screen (NotDetected) Urine Methadone Screen (NotDetected) Ur Propoxyphene Screen (NotDetected) Ur Barbiturates Screen (NotDetected) U Tricyclic Antidepress (NotDetected) Ur Phencyclidine Scrn (NotDetected) Ur Amphetamines Screen (NotDetected) U Methamphetamines Scrn (NotDetected) U Benzodiazepines Scrn (NotDetected) Urine Cocaine Screen (NotDetected) U Marijuana (THC) Screen (NotDetected) Disposition Clinical Impression: Depression, Acute anxiety, Suicidal ideation Disposition: OTHER INSTITUTION NOT DEFINED Condition: Stable Is patient prescribed a controlled substance at d/c from ED?: No Referrals: None,Stated [Primary Care Provider] - 1-2 days Time of Disposition: 23:16 - Out of Hospital Transfer - Req. Specs Out of Hospital Transfer - Requested Specifics: Psychiatric Non-ICU
[2018-02-14 17:41] LABS: Amphetamine Screen,Urine Not Detected (NotDetected); Barbiturate Screen,Urine Not Detected (NotDetected); Benzodiazepines Screen,Urine Detected (NotDetected); Cocaine Screen,Urine Not Detected (NotDetected); Methadone Screen, Urine Not Detected (NotDetected); Opiate Screen,Urine Not Detected (NotDetected); Oxycodone Screen, Urine Not Detected (NotDetected); Phencyclidine Screen,Urine Not Detected (NotDetected); Tricyclic Antidepressant,Urine Not Detected (NotDetected); Urn Cannabinoid Scrn Not Detected (NotDetected)
[2018-02-14] MEDS ORDERED: LORazepam 1 MG TAB PO STA (18:44)
[2018-02-14 20:35] VITALS: RESP 18
[2018-02-14 21:24] LABS: Appearance,Urine Clear (Clear); Bilirubin,Urine Negative (Negative); Blood,Urine Negative (Negative); Color,Urine Colorless; Glucose,Urine (UA) Negative (Negative); Ketones,Urine Negative (Negative); Leukocyte Esterase,Urine Negative (Negative); Nitrite,Urine Negative (Negative); PH, Urine 6.5 (5.0-8.0); Protein,Urine Negative (Negative); Specific Gravity,Urine 1.006 (1.001-1.035); Urobilinogen,Urine <2.0 mg/dL (<2.0)
[2018-02-14 21:26] LABS: Basophils % (A) 0 %; Eosinophils # (A) 0.5 k/uL (0-0.7); Eosinophils % (A) 3 %; HCT 36.8 % (34.0-46.0); HGB 12.3 gm/dL (11.4-16.0); Lymphocytes # (A) 3.3 k/uL (1.0-4.8); Lymphocytes % (A) 23 %; MCHC 33.3 g/dL (31.0-37.0); MCV 89.9 fL (80.0-100.0); Monocytes # (A) 0.6 k/uL (0-1.0); Monocytes % (A) 4 %; Neutrophils # (A) 9.9 k/uL (1.3-7.7); Neutrophils % (A) 68 %; Platelet Count 386 k/uL (150-450); RDW 14.2 % (11.5-15.5); WBC 14.6 k/uL (3.8-10.6)
[2018-02-14 21:37] LABS: ALT 20 U/L (9-52); AST 21 U/L (14-36); Albumin 3.7 g/dL (3.5-5.0); Alkaline Phosphatase 80 U/L (38-126); Anion Gap 7 mmol/L; Blood Urea Nitrogen 6 mg/dL (7-17); Calcium 9.2 mg/dL (8.4-10.2); Carbon Dioxide 26 mmol/L (22-30); Chloride 103 mmol/L (98-107); Glucose 118 mg/dL (74-99); Potassium 3.7 mmol/L (3.5-5.1); Sodium 136 mmol/L (137-145); Total Bilirubin 0.2 mg/dL (0.2-1.3); Total Protein 6.8 g/dL (6.3-8.2)
[2018-02-14 22:53] VITALS: BP 121/70; PULSE 91; TEMP 99.4
== END 2018-02-14 23:49 | disposition other institution (70) ==
LOC: EC 15:51
DX: F41.9 Anxiety disorder, unspecified (principal); F32.9 Major depressive disorder, single episode, unspecified; R45.851 Suicidal ideations; I10 Essential (primary) hypertension; G40.909 Epilepsy, unspecified, not intractable, without status epilepticus; F17.200 Nicotine dependence, unspecified, uncomplicated; Z79.899 Other long term (current) drug therapy; Z91.013 Allergy to seafood; Z91.018 Allergy to other foods; Z91.030 Bee allergy status
CPT/HCPCS: 36415; 80053; 80306; 81003; 82075; 85025; 99285

== ENCOUNTER 2018-03-20 16:36 | Emergency (ER) | payer OTHER ==
[2018-03-20] MEDS ORDERED: ARIPiprazole IM 400 MG VIAL (NO COST) IM STA (17:13)
--- NOTE | 2018-03-20 17:23 | ED ---
Recheck HPI - General Chief Complaint: Recheck/Abnormal Lab/Rx Stated Complaint: Needs help with taking her medicine Time Seen by Provider: 03/20/18 16:57 Source: patient, RN notes reviewed, old records reviewed Mode of arrival: ambulatory Limitations: no limitations - History of Present Illness Initial Comments: This is a 45-year-old female to the ER for evaluation. Presents today for evaluation regards to need to take medication, patient states she is also taking Abilify today, she was trying to give herself the injection and the bottle messed up injection of the medication spelled and she was unable to take her Abilify. Patient otherwise denies any complaints denies drug or alcohol abuse and denies recent thoughts of homicide or suicide MD Complaint: medication refill request (Abilify) -: days(s) Initial Visit For: other (None) Returns Today for: other (Needs medication injection) Symptoms Since Prior Visit: no new symptoms Context: planned re-check Associated Symptoms: none Treatments Prior to Arrival: IV/IO - Related Data Home Medications Medication Instructions Recorded Confirmed Lisinopril 20 mg PO DAILY 10/15/15 03/20/18 Gabapentin 800 mg PO TID 01/25/18 03/20/18 clonazePAM 1 mg PO TID 02/08/18 03/20/18 [place] Carbonate 300 mg PO BID 02/14/18 03/20/18 Sertraline [Zoloft] 100 mg PO DAILY 02/14/18 03/20/18 ARIPiprazole IM SYRINGE [Abilify 400 mg IM Q28D 03/20/18 03/20/18 Maintena Syringe] Allergies Allergy/AdvReac Type Severity Reaction Status Date / Time Fish Containing Products Allergy Unknown Verified 03/20/18 17:31 [Fish] onion Allergy Anaphylaxis Verified 03/20/18 17:31 shellfish derived [Shellfish] Allergy Anaphylaxis Verified 03/20/18 17:31 venom-honey bee Allergy Anaphylaxis Verified 03/20/18 17:31 [bee venom (honey bee)] Review of Systems ROS Statement: Those systems with pertinent positive or pertinent negative responses have been documented in the HPI. ROS Other: All systems not noted in ROS Statement are negative. Past Medical History Past Medical History: COPD, GERD/Reflux, Hypertension, Musculoskeletal Disorder , Seizure Disorder Additional Past Medical History / Comment(s): ANXIETY, Depression, suicide attempt, Bipolar, Borderline Traits. Pt. states last seizure was 11/10/13 History of Any Multi-Drug Resistant Organisms: None Reported Past Surgical History: Tubal Ligation Additional Past Surgical History / Comment(s): "Tummy Tuck" Past Anesthesia/Blood Transfusion Reactions: No Reported Reaction Additional Past Anesthesia/Blood Transfusion Reaction / Comment(s): Unknown, patient poor historian. Past Psychological History: Anxiety, Bipolar, Depression Smoking Status: Current every day smoker Past Alcohol Use History: None Reported Past Drug Use History: Heroin, Prescription Drug Abuse - Past Family History Father Additional Family Medical History / Comment(s): Father at age 63 with brain cancer and lung cancer. Mother Additional Family Medical History / Comment(s): Mother at age 54 due to a drunk driving car accident. Brother(s) Additional Family Medical History / Comment(s): Patient has 3 half brothers. One from a heroin overdose. 2 have no major medical problems. Sister(s) Additional Family Medical History / Comment(s): Patient has 6 half sisters that she does not have contact with. Daughter(s) Additional Family Medical History / Comment(s): Patient has 2 daughters and 1 son. She states she has not seen her 2 youngest children in 5 years as they were taken by their father to [place]. General Exam Limitations: no limitations General appearance: alert, in no apparent distress, anxious Head exam: Present: atraumatic, normocephalic, normal inspection Eye exam: Present: normal appearance, PERRL, EOMI. Absent: scleral icterus, conjunctival injection, periorbital swelling ENT exam: Present: normal exam, mucous membranes moist Neck exam: Present: normal inspection. Absent: tenderness, meningismus, lymphadenopathy Respiratory exam: Present: normal lung sounds bilaterally. Absent: respiratory distress, wheezes, rales, rhonchi, stridor Cardiovascular Exam: Present: regular rate, normal rhythm, normal heart sounds. Absent: systolic murmur, diastolic murmur, rubs, gallop, clicks GI/Abdominal exam: Present: soft, normal bowel sounds. Absent: distended, tenderness, guarding, rebound, rigid Extremities exam: Present: normal inspection, full ROM, normal capillary refill. Absent: tenderness, pedal edema, joint swelling, calf tenderness Back exam: Present: normal inspection Neurological exam: Present: alert, oriented X3, CN II-XII intact Psychiatric exam: Present: normal affect, normal mood Skin exam: Present: warm, dry, intact, normal color. Absent: rash Course Vital Signs 03/20/18 16:44 Temperature 98.1 F Pulse Rate 90 Respiratory 20 Rate Blood Pressure 129/84 O2 Sat by Pulse 100 Oximetry - Reevaluation(s) Reevaluation #1: 03/20/18 18:10 Medical record is reviewed Reevaluation #2: 03/20/18 18:10 Difficulty in getting patient medication here in the emergency room secondary to severe cough, contact was made with [facility] as well as inpatient mental health here in the hospital, plan will be made for patient to follow-up tomorrow to receive Abilify shot Medical Decision Making - Medical Decision Making 47-year-old female the ER for medication injection, patient will receive injection tomorrow, patient can be discharged Disposition Clinical Impression: Encounter for medication refill Disposition: HOME SELF-CARE Condition: Good Instructions: Aripiprazole (By injection) Is patient prescribed a controlled substance at d/c from ED?: No Referrals: None,Stated [Primary Care Provider] - 1-2 days
[2018-03-20] MEDS ORDERED: ARIPiprazole 5 MG TAB PO ONE (18:45)
[2018-03-20 18:49] VITALS: BP 131/74; PULSE 71; RESP 16; TEMP 97.8
== END 2018-03-20 18:48 | disposition home or self-care (01) ==
LOC: EC 16:36
DX: Z76.0 Encounter for issue of repeat prescription (principal); G40.909 Epilepsy, unspecified, not intractable, without status epilepticus; F31.9 Bipolar disorder, unspecified; F41.9 Anxiety disorder, unspecified; I10 Essential (primary) hypertension; Z79.899 Other long term (current) drug therapy; F17.200 Nicotine dependence, unspecified, uncomplicated; Z91.013 Allergy to seafood; Z91.030 Bee allergy status; Z91.018 Allergy to other foods
CPT/HCPCS: 99282

== ENCOUNTER 2018-08-01 15:20 | Inpatient (IN) | payer MEDICAID, OTHER ==
--- NOTE | 2018-08-01 15:25 | ED ---
Psych HPI - General Stated Complaint: Mental health Time Seen by Provider: 08/01/18 15:22 Source: RN notes reviewed, old records reviewed - History of Present Illness Initial Comments: This is a 48-year-old female the ER for evaluation. Patient resents today wanted to stay for psychiatric evaluation. Patient denies recent drug or alcohol abuse, did drink yesterday. No new significant life stressors. Patient does feel depressed and suicidal MD Complaint: suicidal ideation, feels depressed -: days(s) Associated Psychiatric Symptoms: depression, suicidal ideation, delusions History of same: Yes Quality: intermittent, getting worse Improves With: none Worsens With: none Context: recent alcohol abuse Associated Symptoms: denies other symptoms Treatments Prior to Arrival: placed on mental health hold If Self Harm: admits thoughts of self harm - Related Data Home Medications Medication Instructions Recorded Confirmed Gabapentin 800 mg PO TID 01/25/18 08/01/18 ARIPiprazole IM SYRINGE [Abilify 400 mg IM Q28D 03/20/18 08/01/18 Maintena Syringe] Albuterol Sulfate [Proair 2 puff INHALATION RT-Q4H PRN 08/01/18 08/01/18 Respiclick] Ergocalciferol [Vitamin D2] 50,000 unit PO Q7D 08/01/18 08/01/18 Escitalopram [Lexapro] 10 mg PO DAILY 08/01/18 08/01/18 OXcarbazepine [Oxtellar Xr] 300 mg PO BID 08/01/18 08/01/18 Sertraline [Zoloft] 50 mg PO HS 08/01/18 08/01/18 amLODIPine [Norvasc] 5 mg PO DAILY 08/01/18 08/01/18 Allergies Allergy/AdvReac Type Severity Reaction Status Date / Time Fish Containing Products Allergy Anaphylaxis Verified 08/01/18 15:49 [Fish] onion Allergy Anaphylaxis Verified 08/01/18 15:49 shellfish derived [Shellfish] Allergy Anaphylaxis Verified 08/01/18 15:49 venom-honey bee Allergy Anaphylaxis Verified 08/01/18 15:49 [bee venom (honey bee)] Review of Systems ROS Statement: Those systems with pertinent positive or pertinent negative responses have been documented in the HPI. ROS Other: All systems not noted in ROS Statement are negative. Past Medical History Past Medical History: COPD, GERD/Reflux, Hypertension, Musculoskeletal Disorder, Seizure Disorder Additional Past Medical History / Comment(s): ANXIETY, Depression, suicide attempt, Bipolar, Borderline Traits. Pt. states last seizure was 11/10/13 History of Any Multi-Drug Resistant Organisms: None Reported Past Surgical History: Tubal Ligation Additional Past Surgical History / Comment(s): "Tummy Tuck" Past Anesthesia/Blood Transfusion Reactions: No Reported Reaction Additional Past Anesthesia/Blood Transfusion Reaction / Comment(s): Unknown, patient poor historian. Past Drug Use History: Heroin, Prescription Drug Abuse - Past Family History Father Additional Family Medical History / Comment(s): Father at age 63 with brain cancer and lung cancer. Mother Additional Family Medical History / Comment(s): Mother at age 54 due to a drunk driving car accident. Brother(s) Additional Family Medical History / Comment(s): Patient has 3 half brothers. One from a heroin overdose. 2 have no major medical problems. Sister(s) Additional Family Medical History / Comment(s): Patient has 6 half sisters that she does not have contact with. Daughter(s) Additional Family Medical History / Comment(s): Patient has 2 daughters and 1 son. She states she has not seen her 2 youngest children in 5 years as they were taken by their father to [place]. General Exam General appearance: alert, in no apparent distress Head exam: Present: atraumatic, normocephalic, normal inspection Eye exam: Present: normal appearance, PERRL, EOMI. Absent: scleral icterus, conjunctival injection, periorbital swelling ENT exam: Present: normal exam, mucous membranes moist Neck exam: Present: normal inspection. Absent: tenderness, meningismus, lymphadenopathy Respiratory exam: Present: normal lung sounds bilaterally. Absent: respiratory distress, wheezes, rales, rhonchi, stridor Cardiovascular Exam: Present: regular rate, normal rhythm, normal heart sounds. Absent: systolic murmur, diastolic murmur, rubs, gallop, clicks GI/Abdominal exam: Present: soft, normal bowel sounds. Absent: distended, tenderness, guarding, rebound, rigid Extremities exam: Present: normal inspection, full ROM, normal capillary refill. Absent: tenderness, pedal edema, joint swelling, calf tenderness Back exam: Present: normal inspection Neurological exam: Present: alert, oriented X3, CN II-XII intact Psychiatric exam: Present: normal affect, normal mood Skin exam: Present: warm, dry, intact, normal color. Absent: rash Course Vital Signs 08/01/18 15:24 Temperature 98.1 F Pulse Rate 97 Respiratory 20 Rate Blood Pressure 126/87 O2 Sat by Pulse 98 Oximetry - Reevaluation(s) Reevaluation #1: 08/01/18 17:52 medically clear for psychiatric illness Medical Decision Making - Medical Decision Making 48 female to be admitted for psychiatric evaluation and treatment Disposition Clinical Impression: Suicidal ideation, Depression, Opioid abuse Disposition: TRANSFER TO PSYCH HOSP/UNIT Condition: Fair Is patient prescribed a controlled substance at d/c from ED?: No
[2018-08-01] MEDS ORDERED: LORazepam 1 MG TAB PO STA (16:50)
[2018-08-01 18:36] VITALS: BMI 34.5
[2018-08-01] MEDS ORDERED: LORazepam 1 MG TAB PO PRN (20:53)
[2018-08-01] MEDS ORDERED: MAGNESIUM HYDROXIDE 2,400 MG/10 ML CUP PO PRN (20:53)
[2018-08-01] MEDS ORDERED: LORazepam 2 MG/ML INJ IM PRN (20:59)
[2018-08-01] MEDS ORDERED: OXCARBAZEPINE 300 MG PO SCH (21:00)
[2018-08-01] MEDS: NICOTINE 14MG/24HR PATCH TRANSDERM SCH (21:47)
[2018-08-01] MEDS: OXcarbazepine 300 MG TAB PO SCH (21:51)
--- NOTE | 2018-08-02 05:13 | P.HPIM ---
History of Present Illness H&P Date: 08/02/18 The patient is a 48 yo F with a PMH of depression, COPD, and HTN who presented to the ED w/ suicidal ideation and depression. The patient noted having racing thoughts along with thoughts of hurting herself and was subsequently admitted to the mental health unit. She reports feeling somewhat better since admission. She otherwise denied any active complaints including chest pain, shortness of breath, fever, chills, cough. She also denied abdominal pain, nausea, vomiting, or diarrhea. Review of Systems Pertinent positives and negatives as discussed in HPI, a complete review of systems was performed and all other systems are negative. Past Medical History Past Medical History: COPD, GERD/Reflux, Hypertension, Musculoskeletal Disorder, Seizure Disorder Additional Past Medical History / Comment(s): ANXIETY, Depression, suicide attempt, Bipolar, Borderline Traits. Pt. states last seizure was 11/10/13 History of Any Multi-Drug Resistant Organisms: None Reported Past Surgical History: Tubal Ligation Additional Past Surgical History / Comment(s): "Tummy Tuck" Past Anesthesia/Blood Transfusion Reactions: No Reported Reaction Additional Past Anesthesia/Blood Transfusion Reaction / Comment(s): Unknown, patient poor historian. Smoking Status: Current every day smoker - Past Family History Father Additional Family Medical History / Comment(s): Father at age 63 with brain cancer and lung cancer. Mother Additional Family Medical History / Comment(s): Mother at age 54 due to a drunk driving car accident. Brother(s) Additional Family Medical History / Comment(s): Patient has 3 half brothers. One from a heroin overdose. 2 have no major medical problems. Sister(s) Additional Family Medical History / Comment(s): Patient has 6 half sisters that she does not have contact with. Daughter(s) Additional Family Medical History / Comment(s): Patient has 2 daughters and 1 son. She states she has not seen her 2 youngest children in 5 years as they were taken by their father to [place]. Medications and Allergies Home Medications Medication Instructions Recorded Confirmed Type Gabapentin 800 mg PO TID 01/25/18 08/01/18 History ARIPiprazole IM SYRINGE [Abilify 400 mg IM Q28D 03/20/18 08/01/18 History Maintena Syringe] Albuterol Sulfate [Proair 2 puff INHALATION RT-Q4H PRN 08/01/18 08/01/18 History Respiclick] Ergocalciferol [Vitamin D2] 50,000 unit PO Q7D 08/01/18 08/01/18 History Escitalopram [Lexapro] 10 mg PO DAILY 08/01/18 08/01/18 History OXcarbazepine [Oxtellar Xr] 300 mg PO BID 08/01/18 08/01/18 History Sertraline [Zoloft] 50 mg PO HS 08/01/18 08/01/18 History amLODIPine [Norvasc] 5 mg PO DAILY 08/01/18 08/01/18 History Allergies Allergy/AdvReac Type Severity Reaction Status Date / Time Fish Containing Products Allergy Anaphylaxis Verified 08/01/18 15:49 [Fish] onion Allergy Anaphylaxis Verified 08/01/18 15:49 shellfish derived [Shellfish] Allergy Anaphylaxis Verified 08/01/18 15:49 venom-honey bee Allergy Anaphylaxis Verified 08/01/18 15:49 [bee venom (honey bee)] Physical Exam Vitals: Vital Signs Temp Pulse Pulse Resp BP BP Pulse Ox 08/01/18 18:28 98.2 F 102 H 16 135/66 98 08/01/18 15:24 98.1 F 97 20 126/87 98 Intake and Output 08/01/18 08/01/18 08/02/18 14:59 22:59 06:59 Other: Weight 83.007 kg General: non toxic, no distress, appears at stated age, obese Derm: no unusual rashes/lesions no unusual ecchymoses, warm, dry Head: atraumatic, normocephalic, symmetric Eyes: EOMI, no lid lag, anicteric sclera, pupils equal round reactive to light ENT: Nose and ears atraumatic, no thrush, no pharyngeal erythema Neck: No thyromegaly, no cervical lymphadenopathy, trachea midline, supple Mouth: no lip lesion, mucus membranes moist Cardiovascular: S1S2 reg, no murmur, positive posterior tibial pulse bilateral, no edema, capillary refill less than 2 seconds Lungs: CTA bilateral, no rhonchi, no rales , no accessory muscle use Abdominal: soft, nontender to palpation, no guarding, no appreciable organomegaly, normal bowel sounds Ext: no gross muscle atrophy, muscle strength 5 out of 5 in all 4 extremities grossly, no contractures, Neuro: CN II-XI grossly intact, light touch intact all 4 extremities, finger to nose within normal limits, Psych: Alert, oriented, flat affect Thrombosis Risk Factor Assmnt - Choose All That Apply Any of the Below Risk Factors Present?: Yes Each Factor Represents 1 point: Age 41-60 years Other Risk Factors: No Other congenital or acquired thrombophilia - If yes, enter type in comment: No Thrombosis Risk Factor Assessment Total Risk Factor Score: 1 Thrombosis Risk Factor Assessment Level: Low Risk Assessment and Plan Plan: COPD -Resume home medications: Albuterol when necessary Hypertension -Resume home medication: Norvasc Depression, suicidal ideation -As per psychiatry Thank you for allowing us to participate in the care of this patient. We will follow peripherally. Do not hesitate to contact us with questions. Someone can be reached from the [facility] hospitalist group at all hours of the day at [phone].
[2018-08-02] MEDS: GABAPENTIN 400 MG CAP PO SCH ×3 (08:56→20:36)
[2018-08-02] MEDS: OXcarbazepine 300 MG TAB PO SCH ×2 (08:56→20:36)
[2018-08-02] MEDS: amLODIPine 5 MG TAB PO SCH (08:56)
[2018-08-02] MEDS: NICOTINE 14MG/24HR PATCH TRANSDERM SCH (08:57)
[2018-08-02] MEDS ORDERED: ARIPiprazole IM SYRINGE 400 MG (NO CHARGE) IM SCH (11:00)
[2018-08-02 11:48] LABS: Basophils # (A) 0.1 k/uL (0-0.2); Basophils % (A) 1 %; Eosinophils # (A) 0.1 k/uL (0-0.7); Eosinophils % (A) 1 %; HCT 41.1 % (34.0-46.0); HGB 12.9 gm/dL (11.4-16.0); Hypochromasia Slight; Lymphocytes # (A) 2.1 k/uL (1.0-4.8); Lymphocytes % (A) 22 %; MCH 26.7 pg (25.0-35.0); MCHC 31.4 g/dL (31.0-37.0); MCV 85.3 fL (80.0-100.0); Monocytes # (A) 0.3 k/uL (0-1.0); Monocytes % (A) 3 %; Neutrophils # (A) 6.8 k/uL (1.3-7.7); Neutrophils % (A) 71 %; Platelet Count 403 k/uL (150-450); RBC 4.82 m/uL (3.80-5.40); RDW 15.7 % (11.5-15.5); WBC 9.6 k/uL (3.8-10.6)
[2018-08-02 12:00] LABS: ALT 22 U/L (9-52); AST 18 U/L (14-36); Albumin 4.4 g/dL (3.5-5.0); Alkaline Phosphatase 107 U/L (38-126); Anion Gap 8 mmol/L; Bilirubin, Delta 0.2 mg/dL (0.0-0.2); Bilirubin,Unconjugated 0.2 mg/dL (0.0-1.1); Blood Urea Nitrogen 11 mg/dL (7-17); Calcium 9.7 mg/dL (8.4-10.2); Carbon Dioxide 28 mmol/L (22-30); Chloride 102 mmol/L (98-107); Cholesterol 199 mg/dL (<200); Glucose 101 mg/dL (74-99); HDL Cholesterol 61 mg/dL (40-60); LDL Cholesterol,Calculated 111 mg/dL (0-99); Potassium 4.5 mmol/L (3.5-5.1); Sodium 138 mmol/L (137-145); Total Bilirubin 0.4 mg/dL (0.2-1.3); Total Protein 7.7 g/dL (6.3-8.2); Triglycerides 133 mg/dL (<150)
--- NOTE | 2018-08-02 12:33 | P.HP ---
Psychiatric H&P - . H&P Date: 08/02/18 History & Physical: Allergies Allergy/AdvReac Type Severity Reaction Status Date / Time Fish Containing Products Allergy Anaphylaxis Verified 08/01/18 15:49 [Fish] onion Allergy Anaphylaxis Verified 08/01/18 15:49 shellfish derived [Shellfish] Allergy Anaphylaxis Verified 08/01/18 15:49 venom-honey bee Allergy Anaphylaxis Verified 08/01/18 15:49 [bee venom (honey bee)] Vital Signs Temp 98.8 F 08/02/18 06:09 Pulse 94 08/02/18 06:09 Resp 14 08/02/18 06:09 BP 113/57 08/02/18 06:09 Pulse Ox 98 08/01/18 18:28 Intake & Output 08/01/18 08/02/18 08/02/18 18:59 06:59 18:59 Weight 83.007 kg Assessment and Plan Assessment: The patient is a 48 yo F with a PMH of depression, COPD, and HTN who presented to the ED w/ suicidal ideation and depression. The patient noted having racing thoughts along with thoughts of hurting herself and was subsequently admitted to the mental health unit. She reports feeling somewhat better since admission. She otherwise denied any active complaints including chest pain, shortness of breath, fever, chills, cough. She also denied abdominal pain, nausea, vomiting, or diarrhea. Pt. went to [facility] for her Abilify Maintena and her BP was elevated so she didn't get it. Pt. was tearful and panicky and said she was comming to ER. Pt. went home and went to bed. Pt. returned to [facility] today and they sent her via ems to hospital. Pt. stated she was suicidal and was planning to OD on Heroin. Pt. told RN that she had found out her room mates were using Heroin and it is unsafe there. Pt. plans to move in with sister in law when leaves. Pt. co of having panic attacks all day every day. Pt. states she had stopped using heroin 2 years ago when she fell in love and her boyfriend didn't want to be with her if she used drugs. Pt. states she has a relapse 2 days ago.Pt. states she was told she is borderline diabetic and lately she has been indulging in sweets and only eating one meal daily. Pt. states she went to bed at 9pm and couldn't sleep rt having racing thoughts. Pt. slept 3 hours. Pt. states she can't nap during the day past history of attempts to OD, cut self and she said she jumped off a two story building once. Past Medical History Past Medical History: COPD, GERD/Reflux, Hypertension, Musculoskeletal Disorder, Seizure Disorder Additional Past Medical History / Comment(s): ANXIETY, Depression, suicide attempt, Bipolar, Borderline Traits. Pt. states last seizure was 11/10/13 History of Any Multi-Drug Resistant Organisms: None Reported Past Surgical History: Tubal Ligation Additional Past Surgical History / Comment(s): "Tummy Tuck" Past Anesthesia/Blood Transfusion Reactions: No Reported Reaction Additional Past Anesthesia/Blood Transfusion Reaction / Comment(s): Unknown, patient poor historian. Smoking Status: Current every day smoker - Past Family History Father Additional Family Medical History / Comment(s): Father at age 63 with brain cancer and lung cancer. Mother Additional Family Medical History / Comment(s): Mother at age 54 due to a drunk driving car accident. Brother(s) Additional Family Medical History / Comment(s): Patient has 3 half brothers. One from a heroin overdose. 2 have no major medical problems. Sister(s) Additional Family Medical History / Comment(s): Patient has 6 half sisters that she does not have contact with. Daughter(s) Additional Family Medical History / Comment(s): Patient has 2 daughters and 1 son. She states she has not seen her 2 youngest children in 5 years as they were taken by their father to [place]. Medications and Allergies Home Medications Medication Instructions Recorded Confirmed Type Gabapentin 800 mg PO TID 01/25/18 08/01/18 History ARIPiprazole IM SYRINGE [Abilify 400 mg IM Q28D 03/20/18 08/01/18 History Maintena Syringe] Albuterol Sulfate [Proair 2 puff INHALATION RT-Q4H PRN 08/01/18 08/01/18 History Respiclick] Ergocalciferol [Vitamin D2] 50,000 unit PO Q7D 08/01/18 08/01/18 History Escitalopram [Lexapro] 10 mg PO DAILY 08/01/18 08/01/18 History OXcarbazepine [Oxtellar Xr] 300 mg PO BID 08/01/18 08/01/18 History Sertraline [Zoloft] 50 mg PO HS 08/01/18 08/01/18 History amLODIPine [Norvasc] 5 mg PO DAILY 08/01/18 08/01/18 History Allergies Allergy/AdvReac Type Severity Reaction Status Date / Time Fish Containing Products Allergy Anaphylaxis Verified 08/01/18 15:49 [Fish] onion Allergy Anaphylaxis Verified 08/01/18 15:49 shellfish derived [Shellfish] Allergy Anaphylaxis Verified 08/01/18 15:49 venom-honey bee Allergy Anaphylaxis Verified 08/01/18 15:49 [bee venom (honey bee)] Mental Status Examination - General Appearance: [ disheveled, casual, bizarre, appears older than stated age Speech/Language: [ rapid, expressive, soft] Attitude/Behavior: [ guarded, irritable, withdrawn, indifferent] Mood: [ depressed 10 out of 10, anxious 10 out of 10, irritable, fearful, hopelessness Affect: [ flat, incongruent, labile, blunted constricted, tearful] Orientation: [time, person, place situation] Thought Content: [wnl, denies delusions, obsessions, phobias, other] Risk Factors: [Admits to suicidal (ideations, plan) Perception: [wnl, denies hallucinations (auditory, visual, tactile), other] Thought Processes: [ concrete, circumstantial, tangential, other] Concentration/Attention Span: [impaired] [Per observation and interview with the patient] Recent Memory: [impaired] [0 out of 3 in 3 minutes] Remote Memory: [wnl] [past events, as related history] Intelligence: [below average] [based on history, based on vocabulary, syntax, grammar, and content] Judgement: [ poor] [per patient's behavior/history of present illness] Insight: [ poor] [understanding severity of illness/history of present illness] Patient Limitations: [medication, non-compliance, pathological/unsupported environment, intellectual impairment, legal issues, lack of social supports] PAST PSYCHIATRIC HISTORY: 4 admission to psych unit. Reports she is diagnosed with bipolar, cannot recall when she last took, maybe 2013.. PAST MEDICAL HISTORY: Back pain, cyst on kidney. ALLERGIES: No known drug allergies. CHEMICAL DEPENDENCY HISTORY: Heroin IV, denies any other drug use.. FAMILY PSYCHIATRIC HISTORY: states her whole family has some disorder. FAMILY CHEMICAL DEPENDENCY HISTORY:mothers side, all her sisters, on dad's side some members have drug use. LEGAL HISTORY: Denies, but says drug task force wants her to work with them.. SOCIAL HISTORY: [Patient is unwilling to give history but reports she has children that were taken by her and she has not seen them for 5 years. Although 2 are in their 20s, they make no attempt to contact her. She cannot explain why they do not wish to be in contact. She is the eldest 6 sisters, 3 with her mother and 3 with her dad. She lives with a roommate and roommates boyfriend. Unemployed. . STRENGTHS: verbal. WEAKNESSES: heroin. Initial Plan of Care: [She was formal voluntary admitted to [address] [place] [address]. She'll be evaluated by medicine, psychiatry, nursing staff, social work and occupational therapy. She will be integrated in the [facility] milieu therapeutic environment whereby she'll be placed on 15 minute checks and usually safety from protocol on the unit. She will be reinstituted on her medication Abilify long acting injectable medicine today. She needs thorough workup: CBC CMP and Trileptal levels to better understand where her current state of usage. She also admits to using heroin 3 days ago.] Estimated Length of Stay: [7 days] Initial Discharge Plan: [home, special care hospital (1) Depression Current Visit: Yes Status: Acute Code(s): F32.9 - MAJOR DEPRESSIVE DISORDER, SINGLE EPISODE, UNSPECIFIED SNOMED Code(s): 41497360
[2018-08-02] MEDS: clonazePAM 0.5 MG TAB PO SCH ×2 (16:10→20:36)
[2018-08-02 21:27] LABS: Hemoglobin A1C 5.7 % (4.0-6.0)
[2018-08-03] MEDS: MAG HYDROX/AL HYDROX/SIMETH 30 ML CUP PO PRN ×2 (02:00→17:37)
[2018-08-03] MEDS: NICOTINE 14MG/24HR PATCH TRANSDERM SCH (07:41)
[2018-08-03] MEDS: clonazePAM 0.5 MG TAB PO SCH ×3 (07:42→20:59)
[2018-08-03] MEDS: amLODIPine 5 MG TAB PO SCH (07:42)
[2018-08-03] MEDS: GABAPENTIN 400 MG CAP PO SCH ×3 (07:42→20:59)
[2018-08-03] MEDS: OXcarbazepine 300 MG TAB PO SCH ×2 (07:42→20:59)
[2018-08-03] MEDS: ACETAMINOPHEN TAB 325 MG TAB PO PRN ×2 (07:45→15:05)
[2018-08-03 10:27] LABS: T4, Free (Free Thyroxine) 1.06 ng/dL (0.78-2.19)
[2018-08-03] MEDS: ALBUTEROL NEBULIZED 2.5 MG/3 ML INHALATION PRN ×2 (11:56→21:21)
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
[2018-08-04] MEDS: clonazePAM 0.5 MG TAB PO SCH ×3 (07:38→20:38)
[2018-08-04] MEDS: OXcarbazepine 300 MG TAB PO SCH ×2 (07:38→20:38)
[2018-08-04] MEDS: NICOTINE 14MG/24HR PATCH TRANSDERM SCH (07:38)
[2018-08-04] MEDS: GABAPENTIN 400 MG CAP PO SCH ×3 (07:38→20:37)
[2018-08-04] MEDS: amLODIPine 5 MG TAB PO SCH (07:38)
[2018-08-04] MEDS: ACETAMINOPHEN TAB 325 MG TAB PO PRN ×2 (07:39→20:39)
[2018-08-04] MEDS ORDERED: diphenhydrAMINE 50 MG CAP PO STA (14:31)
[2018-08-04] MEDS ORDERED: IBUPROFEN 800 MG TAB PO PRN (15:24)
--- NOTE | 2018-08-04 19:35 | PN ---
PROGRESS NOTE DATE OF SERVICE: 08/04/2018. CHIEF COMPLAINT: The patient had depression, high anxiety, racing thoughts and thoughts of suicide with a plan. INTERVAL HISTORY: The patient has been doing fair. The patient had a quiet evening this night. It was documented that she slept 5 hours last night. Today she has been up. She comes out in the day area. She has been attending groups. It is noted that about midday the patient came into my office complaining of high anxiety. She said she was very distressed. She acknowledged that she has not been utilizing relaxation techniques. She continues to have a lot a restlessness. We talked about medication and non medication options. She was asking about additional doses of Klonopin in between her regular doses. She also was asking for a medication that might help with her back pain. It is noted however that when she was observed on the unit at other times during the day, she was interacting with others. She was smiling. She has been attending groups and has been quite appropriate in groups. She has a good appetite. She appears to tolerate her medications fairly well save for the possibility of active seizure related to her Abilify Maintena. MENTAL STATUS EXAM: When I saw the patient in the office, she was tearful and distressed throughout most of the interview. Towards the end of the interview she seemed to calm down some. She was restless initially. When she sat down, she did not have any restlessness in her legs, though later on in the interview she did. She answered questions with direct responses. Her thoughts were clear. Her affect was anxious and intense. Her mood depressed. She was moderately distressed. There was no indication of thought disorder. Cognition was clear. ASSESSMENT: I will continue the current diagnosis and treatment plan. I had an extensive discussion with the patient regarding medication options. At this point, I will start the patient on Benadryl 50 mg twice a day. The aim of Benadryl is to potentially reduce possible akathesia she may be having from Abilify that may be aggravating some of her anxiety complaints. I will also start her on Motrin 800 mg 3 times a day p.r.n. I discussed with the patient that currently she has a complicated set of medications. I said it may be critical to coordinate with [facility] to get some guidance in regards to what direction they might choose to take in regards to her current psychotropics. Whether or not she has a clear indication for Abilify remains to be seen. She may be having side effects that could be aggravating anxiety. The indication for Trileptal is not clear as well. I had discussed with the patient that for the custodial she is best off it if she can move away from benzodiazepines which can aggravate mood disorder. In regards to the above considerations, I noted that we can try just the Benadryl to see if it does give her some benefit in terms of quieting down some of her restless legs and possible some anxiety. I advised her that Dr. Mancia can evaluate medications further in coordination with Mental Health to help work on the long-term treatment planning. MMEMMANUEL / MCKENNAN: [id number] / TANK
[2018-08-04] MEDS: diphenhydrAMINE 50 MG CAP PO SCH ×2 (20:37→20:39)
[2018-08-05] MEDS: clonazePAM 0.5 MG TAB PO SCH ×3 (08:22→20:34)
[2018-08-05] MEDS: amLODIPine 5 MG TAB PO SCH (08:22)
[2018-08-05] MEDS: GABAPENTIN 400 MG CAP PO SCH ×3 (08:22→20:33)
[2018-08-05] MEDS: OXcarbazepine 300 MG TAB PO SCH ×2 (08:23→20:32)
[2018-08-05] MEDS: NICOTINE 14MG/24HR PATCH TRANSDERM SCH (08:24)
[2018-08-05] MEDS: ACETAMINOPHEN TAB 325 MG TAB PO PRN ×2 (08:24→22:15)
[2018-08-05] MEDS: diphenhydrAMINE 50 MG CAP PO SCH ×2 (08:29→20:31)
--- NOTE | 2018-08-05 15:58 | P.PN ---
Subjective Progress Note Date: 08/05/18 Principal diagnosis: Bipolar affective disorder and borderline personality 08/05/2018: Chart reviewed and discussed in team, discussed prognosis and probable discharge date and plan. Patient interviewed today had to be awoken she was taking Naprosyn her room and states she has low back pain, stiffness, still having panic attacks and discussed her previous history with Zoloft and was agreeable to restart Zoloft in an attempt to decrease her anxiety and not use more benzodiazepines. She remains on 15 minute checks. Objective - Vital Signs Vital signs: Vital Signs Temp 98.3 F 08/05/18 06:35 Pulse 73 08/05/18 06:35 Resp 14 08/05/18 06:35 BP 123/67 08/05/18 06:35 Pulse Ox 98 08/01/18 18:28 Intake & Output 08/04/18 08/05/18 08/05/18 18:59 06:59 18:59 Weight 83.5 kg - Labs CBC & Chem 7: 08/02/18 11:20 08/02/18 11:20 Assessment and Plan Assessment: The patient is a 48 yo F with a PMH of depression, COPD, and HTN who presented to the ED w/ suicidal ideation and depression. The patient noted having racing thoughts along with thoughts of hurting herself and was subsequently admitted to the mental health unit. She reports feeling somewhat better since admission. She otherwise denied any active complaints including chest pain, shortness of breath, fever, chills, cough. She also denied abdominal pain, nausea, vomiting, or diarrhea. Pt. went to [facility] for her Abilify Maintena and her BP was elevated so she didn't get it. Pt. was tearful and panicky and said she was comming to ER. Pt. went home and went to bed. Pt. returned to [facility] today and they sent her via ems to hospital. Pt. stated she was suicidal and was planning to OD on Heroin. Pt. told RN that she had found out her room mates were using Heroin and it is unsafe there. Pt. plans to move in with sister in law when leaves. Pt. co of having panic attacks all day every day. Pt. states she had stopped using heroin 2 years ago when she fell in love and her boyfriend didn't want to be with her if she used drugs. Pt. states she has a relapse 2 days ago.Pt. states she was told she is borderline diabetic and lately she has been indulging in sweets and only eating one meal daily. Pt. states she went to bed at 9pm and couldn't sleep rt having racing thoughts. Pt. slept 3 hours. Pt. states she can't nap during the day past history of attempts to OD, cut self and she said she jumped off a two story building once. Past Medical History Past Medical History: COPD, GERD/Reflux, Hypertension, Musculoskeletal Disorder, Seizure Disorder Additional Past Medical History / Comment(s): ANXIETY, Depression, suicide attempt, Bipolar, Borderline Traits. Pt. states last seizure was 11/10/13 History of Any Multi-Drug Resistant Organisms: None Reported Past Surgical History: Tubal Ligation Additional Past Surgical History / Comment(s): "Tummy Tuck" Past Anesthesia/Blood Transfusion Reactions: No Reported Reaction Additional Past Anesthesia/Blood Transfusion Reaction / Comment(s): Unknown, patient poor historian. Smoking Status: Current every day smoker - Past Family History Father Additional Family Medical History / Comment(s): Father at age 63 with brain cancer and lung cancer. Mother Additional Family Medical History / Comment(s): Mother at age 54 due to a drunk driving car accident. Brother(s) Additional Family Medical History / Comment(s): Patient has 3 half brothers. One from a heroin overdose. 2 have no major medical problems. Sister(s) Additional Family Medical History / Comment(s): Patient has 6 half sisters that she does not have contact with. Daughter(s) Additional Family Medical History / Comment(s): Patient has 2 daughters and 1 son. She states she has not seen her 2 youngest children in 5 years as they were taken by their father to [place]. Medications and Allergies Home Medications Medication Instructions Recorded Confirmed Type Gabapentin 800 mg PO TID 01/25/18 08/01/18 History ARIPiprazole IM SYRINGE [Abilify 400 mg IM Q28D 03/20/18 08/01/18 History Maintena Syringe] Albuterol Sulfate [Proair 2 puff INHALATION RT-Q4H PRN 08/01/18 08/01/18 History Respiclick] Ergocalciferol [Vitamin D2] 50,000 unit PO Q7D 08/01/18 08/01/18 History Escitalopram [Lexapro] 10 mg PO DAILY 08/01/18 08/01/18 History OXcarbazepine [Oxtellar Xr] 300 mg PO BID 08/01/18 08/01/18 History Sertraline [Zoloft] 50 mg PO HS 08/01/18 08/01/18 History amLODIPine [Norvasc] 5 mg PO DAILY 08/01/18 08/01/18 History Allergies Allergy/AdvReac Type Severity Reaction Status Date / Time Fish Containing Products Allergy Anaphylaxis Verified 08/01/18 15:49 [Fish] onion Allergy Anaphylaxis Verified 08/01/18 15:49 shellfish derived [Shellfish] Allergy Anaphylaxis Verified 08/01/18 15:49 venom-honey bee Allergy Anaphylaxis Verified 08/01/18 15:49 [bee venom (honey bee)] Mental Status Examination - General Appearance: [ disheveled, casual, bizarre, appears older than stated age Speech/Language: [ rapid, expressive, soft] Attitude/Behavior: [ guarded, irritable, withdrawn, indifferent] Mood: [ depressed 10 out of 10, anxious 10 out of 10, irritable, fearful, hopelessness Affect: [ flat, incongruent, labile, blunted constricted, tearful] Orientation: [time, person, place situation] Thought Content: [wnl, denies delusions, obsessions, phobias, other] Risk Factors: [Admits to suicidal (ideations, plan) Perception: [wnl, denies hallucinations (auditory, visual, tactile), other] Thought Processes: [ concrete, circumstantial, tangential, other] Concentration/Attention Span: [impaired] [Per observation and interview with the patient] Recent Memory: [impaired] [0 out of 3 in 3 minutes] Remote Memory: [wnl] [past events, as related history] Intelligence: [below average] [based on history, based on vocabulary, syntax, grammar, and content] Judgement: [ poor] [per patient's behavior/history of present illness] Insight: [ poor] [understanding severity of illness/history of present illness] . Initial Plan of Care: [She was formal voluntary admitted to [address] [place] [address]. She'll be evaluated by medicine, psychiatry, nursing staff, social work and occupational therapy. She will be integrated in the zapata milieu therapeutic environment whereby she'll be placed on 15 minute checks and usually safety from protocol on the unit. She will be reinstituted on her medication Abilify long acting injectable medicine today. She needs thorough workup: CBC CMP and Trileptal levels to better understand where her current state of usage. She also admits to using heroin 3 days ago. 08/05/2018: Still has anxiety, depression, neck pain, low back pain. Will add Zoloft 50 mg by mouth daily at bedtime for depression and anxiety. We will add Cogentin for muscle stiffness which may be EPS. I'll also add lidocaine 5% patch to low back region for her pain over her sciatica. She remains on 15 minute checks and useful safety protocol the unit. Trileptal level was within therapeutic range but low. We'll consider increasing that over the next 2 days.] (1) Depression Current Visit: Yes Status: Acute Code(s): F32.9 - MAJOR DEPRESSIVE DISORDER, SINGLE EPISODE, UNSPECIFIED SNOMED Code(s): 61276886 Time with Patient: Less than 30
[2018-08-05] MEDS ORDERED: ZIPRASIDONE 20 MG VIAL IM STA (17:29)
[2018-08-05] MEDS: SERTRALINE 50 MG TAB PO SCH (20:32)
[2018-08-05] MEDS: MELOXICAM 7.5 MG TAB PO SCH (20:33)
[2018-08-05] MEDS: BENZTROPINE MESYLATE 0.5 MG TAB PO SCH (20:33)
[2018-08-06] MEDS: clonazePAM 0.5 MG TAB PO SCH ×3 (08:18→20:09)
[2018-08-06] MEDS: BENZTROPINE MESYLATE 0.5 MG TAB PO SCH ×2 (08:18→20:09)
[2018-08-06] MEDS: GABAPENTIN 400 MG CAP PO SCH ×3 (08:18→20:09)
[2018-08-06] MEDS: amLODIPine 5 MG TAB PO SCH (08:19)
[2018-08-06] MEDS: diphenhydrAMINE 50 MG CAP PO SCH ×2 (08:19→20:09)
[2018-08-06] MEDS: OXcarbazepine 300 MG TAB PO SCH ×2 (08:19→20:09)
[2018-08-06] MEDS: MELOXICAM 7.5 MG TAB PO SCH ×2 (08:19→20:08)
[2018-08-06] MEDS: LIDOCAINE 5% PATCH TOPICAL SCH (08:22)
[2018-08-06] MEDS: NICOTINE 14MG/24HR PATCH TRANSDERM SCH (08:26)
[2018-08-06] MEDS: ALBUTEROL NEBULIZED 2.5 MG/3 ML INHALATION PRN (09:09)
[2018-08-06] MEDS ORDERED: OLANZapine 5 MG TAB PO ONE (13:50)
[2018-08-06 14:42] LABS: Appearance,Urine Clear (Clear); Bacteria,Urine Rare /hpf; Bilirubin,Urine Negative (Negative); Blood,Urine Small (Negative); Color,Urine Light Yellow; Glucose,Urine (UA) Negative (Negative); Ketones,Urine Negative (Negative); Leukocyte Esterase,Urine Small (Negative); Mucus,Urine Rare /hpf; Nitrite,Urine Negative (Negative); PH, Urine 7.5 (5.0-8.0); Protein,Urine Negative (Negative); RBC,Urine 1 /hpf (0-5); Specific Gravity,Urine 1.014 (1.001-1.035); Squamous Epithelial Cell,Urine 4 /hpf (0-4); Urobilinogen,Urine <2.0 mg/dL (<2.0); WBC,Urine 4 /hpf (0-5)
[2018-08-06 14:53] LABS: Amphetamine Screen,Urine Not Detected (NotDetected); Barbiturate Screen,Urine Not Detected (NotDetected); Benzodiazepines Screen,Urine Detected (NotDetected); Cocaine Screen,Urine Not Detected (NotDetected); Methadone Screen, Urine Not Detected (NotDetected); Opiate Screen,Urine Not Detected (NotDetected); Oxycodone Screen, Urine Not Detected (NotDetected); Phencyclidine Screen,Urine Not Detected (NotDetected); Tricyclic Antidepressant,Urine Not Detected (NotDetected); Urn Cannabinoid Scrn Not Detected (NotDetected)
--- NOTE | 2018-08-06 17:35 | PN ---
PROGRESS NOTE DATE OF SERVICE: 08/06/2018 CHIEF COMPLAINT: The patient had depression, high anxiety, racing thoughts and thoughts of suicide with a plan. INTERVAL HISTORY: Patient has been having significant distress. She apparently found out last evening in a telephone call from her sister that her younger sister . Circumstances were not completely clear. The patient said her younger sister was 31. She said she had a close relationship with her sister. Her understanding was that her sister was in a motel room with a man and that ultimately she may have from overdose of a combination of substances. She does not have any more details than that. She has been very distressed over the idea that the body will be cremated and remains sent to [place] with the next of kin. It is noted that in spite of this distressing news, the patient was able to sleep 6 hours last night. She has been up on the unit today. She has periods where she gets very distressed and crying. At other times she seems more appropriate and interactive. She has been attending groups. She can show some periods where she will smile and seem to be in a fairly good mood. When I talked to her she was very distressed and saying that she wanted to be discharged as soon as possible so that she had a chance to see her sister before cremation. She continued to report high anxiety. She was wanting an increase in her Klonopin. She continues to report low back pain. She says that she thinks the restlessness she has in her legs may be a little less since the addition of Cogentin. Overall the patient appears to be tolerating her medications fairly well. MENTAL STATUS: Patient was quite restless. She was tearful throughout the interview. She focused mainly on the issues of her sister passing away. She was able to discuss the situation in a fairly coherent and organized way. Her affect was intense, her mood depressed. She was significantly distressed. There was no indication of thought disorder. Cognition was clear. She was ambulatory with normal gait and strength. ASSESSMENT: I will continue the current diagnosis and treatment plan. I discussed with the patient the down sides to any addition to her current dose of Klonopin, particularly in regards to potential of interfering with memory and cognitive function. We discussed that through the period of grief the most important thing for her will be to be able to talk through some of the issues and process issues, either in conversation with family or with support on the unit. As such, I will give her a one-time dose of Zyprexa 5 mg. I encouraged her to utilize the non-pharmacologic activities to help better manage anxiety. We discussed therapeutic walking as well as some breathing techniques. We will continue to focus on stabilization and discharge planning. SHANTI / ALANA: [id number] /
[2018-08-06] MEDS: SERTRALINE 50 MG TAB PO SCH (20:09)
[2018-08-07 06:58] VITALS: BP 126/59; PULSE 85; RESP 16; TEMP 99
[2018-08-07] MEDS: NICOTINE 14MG/24HR PATCH TRANSDERM SCH (08:39)
[2018-08-07] MEDS: clonazePAM 0.5 MG TAB PO SCH ×2 (08:39→15:05)
[2018-08-07] MEDS: amLODIPine 5 MG TAB PO SCH (08:39)
[2018-08-07] MEDS: GABAPENTIN 400 MG CAP PO SCH ×2 (08:39→15:05)
[2018-08-07] MEDS: diphenhydrAMINE 50 MG CAP PO SCH (08:39)
[2018-08-07] MEDS: BENZTROPINE MESYLATE 0.5 MG TAB PO SCH (08:39)
[2018-08-07] MEDS: MELOXICAM 7.5 MG TAB PO SCH (08:40)
[2018-08-07] MEDS: OXcarbazepine 300 MG TAB PO SCH (08:40)
[2018-08-07] MEDS: LIDOCAINE 5% PATCH TOPICAL SCH (08:41)
--- NOTE | 2018-08-07 12:23 | P.DS ---
Providers Date of admission: 08/01/18 17:41 Expected date of discharge: 08/07/18 Attending physician: Wilberto Mancia DO Consults: 08/01/18 20:53 Consult Physician Routine Consulting Provider: Trent Milian Consult Reason/Comments: H & P and medical care Do you want consulting provider notified?: Yes Primary care physician: [facility] - Discharge Diagnosis(es) (1) Depression Allergies Allergy/AdvReac Type Severity Reaction Status Date / Time Fish Containing Products Allergy Anaphylaxis Verified 08/01/18 15:49 [Fish] onion Allergy Anaphylaxis Verified 08/01/18 15:49 shellfish derived [Shellfish] Allergy Anaphylaxis Verified 08/01/18 15:49 venom-honey bee Allergy Anaphylaxis Verified 08/01/18 15:49 [bee venom (honey bee)] Vital Signs Temp 98.8 F 08/02/18 06:09 Pulse 94 08/02/18 06:09 Resp 14 08/02/18 06:09 BP 113/57 08/02/18 06:09 Pulse Ox 98 08/01/18 18:28 Intake & Output 08/01/18 08/02/18 08/02/18 18:59 06:59 18:59 Weight 83.007 kg Assessment and Plan Assessment: The patient is a 48 yo F with a PMH of depression, COPD, and HTN who presented to the ED w/ suicidal ideation and depression. The patient noted having racing thoughts along with thoughts of hurting herself and was subsequently admitted to the mental health unit. She reports feeling somewhat better since admission. She otherwise denied any active complaints including chest pain, shortness of breath, fever, chills, cough. She also denied abdominal pain, nausea, vomiting, or diarrhea. Pt. went to [facility] for her Abilify Maintena and her BP was elevated so she didn't get it. Pt. was tearful and panicky and said she was comming to ER. Pt. went home and went to bed. Pt. returned to [facility] today and they sent her via ems to hospital. Pt. stated she was suicidal and was planning to OD on Heroin. Pt. told RN that she had found out her room mates were using Heroin and it is unsafe there. Pt. plans to move in with sister in law when leaves. Pt. co of having panic attacks all day every day. Pt. states she had stopped using heroin 2 years ago when she fell in love and her boyfriend didn't want to be with her if she used drugs. Pt. states she has a relapse 2 days ago.Pt. states she was told she is borderline diabetic and lately she has been indulging in sweets and only eating one meal daily. Pt. states she went to bed at 9pm and couldn't sleep rt having racing thoughts. Pt. slept 3 hours. Pt. states she can't nap during the day past history of attempts to OD, cut self and she said she jumped off a two story building once. Past Medical History Past Medical History: COPD, GERD/Reflux, Hypertension, Musculoskeletal Disorder, Seizure Disorder Additional Past Medical History / Comment(s): ANXIETY, Depression, suicide attempt, Bipolar, Borderline Traits. Pt. states last seizure was 11/10/13 History of Any Multi-Drug Resistant Organisms: None Reported Past Surgical History: Tubal Ligation Additional Past Surgical History / Comment(s): "Tummy Tuck" Past Anesthesia/Blood Transfusion Reactions: No Reported Reaction Additional Past Anesthesia/Blood Transfusion Reaction / Comment(s): Unknown, patient poor historian. Smoking Status: Current every day smoker - Past Family History Father Additional Family Medical History / Comment(s): Father at age 63 with brain cancer and lung cancer. Mother Additional Family Medical History / Comment(s): Mother at age 54 due to a drunk driving car accident. Brother(s) Additional Family Medical History / Comment(s): Patient has 3 half brothers. One from a heroin overdose. 2 have no major medical problems. Sister(s) Additional Family Medical History / Comment(s): Patient has 6 half sisters that she does not have contact with. Daughter(s) Additional Family Medical History / Comment(s): Patient has 2 daughters and 1 son. She states she has not seen her 2 youngest children in 5 years as they were taken by their father to [place]. Medications and Allergies Home Medications Medication Instructions Recorded Confirmed Type Gabapentin 800 mg PO TID 01/25/18 08/01/18 History ARIPiprazole IM SYRINGE [Abilify 400 mg IM Q28D 03/20/18 08/01/18 History Maintena Syringe] Albuterol Sulfate [Proair 2 puff INHALATION RT-Q4H PRN 08/01/18 08/01/18 History Respiclick] Ergocalciferol [Vitamin D2] 50,000 unit PO Q7D 08/01/18 08/01/18 History Escitalopram [Lexapro] 10 mg PO DAILY 08/01/18 08/01/18 History OXcarbazepine [Oxtellar Xr] 300 mg PO BID 08/01/18 08/01/18 History Sertraline [Zoloft] 50 mg PO HS 08/01/18 08/01/18 History amLODIPine [Norvasc] 5 mg PO DAILY 08/01/18 08/01/18 History Allergies Allergy/AdvReac Type Severity Reaction Status Date / Time Fish Containing Products Allergy Anaphylaxis Verified 08/01/18 15:49 [Fish] onion Allergy Anaphylaxis Verified 08/01/18 15:49 shellfish derived [Shellfish] Allergy Anaphylaxis Verified 08/01/18 15:49 venom-honey bee Allergy Anaphylaxis Verified 08/01/18 15:49 [bee venom (honey bee)] Mental Status Examination - General Appearance: [ disheveled, casual, bizarre, appears older than stated age Speech/Language: [ rapid, expressive, soft] Attitude/Behavior: [ guarded, irritable, withdrawn, indifferent] Mood: [ depressed 10 out of 10, anxious 10 out of 10, irritable, fearful, hopelessness Affect: [ flat, incongruent, labile, blunted constricted, tearful] Orientation: [time, person, place situation] Thought Content: [wnl, denies delusions, obsessions, phobias, other] Risk Factors: [Admits to suicidal (ideations, plan) Perception: [wnl, denies hallucinations (auditory, visual, tactile), other] Thought Processes: [ concrete, circumstantial, tangential, other] Concentration/Attention Span: [impaired] [Per observation and interview with the patient] Recent Memory: [impaired] [0 out of 3 in 3 minutes] Remote Memory: [wnl] [past events, as related history] Intelligence: [below average] [based on history, based on vocabulary, syntax, grammar, and content] Judgement: [ poor] [per patient's behavior/history of present illness] Insight: [ poor] [understanding severity of illness/history of present illness] Patient Limitations: [medication, non-compliance, pathological/unsupported environment, intellectual impairment, legal issues, lack of social supports] PAST PSYCHIATRIC HISTORY: 4 admission to psych unit. Reports she is diagnosed with bipolar, cannot recall when she last took, maybe 2013.. PAST MEDICAL HISTORY: Back pain, cyst on kidney. ALLERGIES: No known drug allergies. CHEMICAL DEPENDENCY HISTORY: Heroin IV, denies any other drug use.. FAMILY PSYCHIATRIC HISTORY: states her whole family has some disorder. FAMILY CHEMICAL DEPENDENCY HISTORY:mothers side, all her sisters, on dad's side some members have drug use. LEGAL HISTORY: Denies, but says drug task force wants her to work with them.. SOCIAL HISTORY: [Patient is unwilling to give history but reports she has children that were taken by her and she has not seen them for 5 years. Although 2 are in their 20s, they make no attempt to contact her. She cannot explain why they do not wish to be in contact. She is the eldest 6 sisters, 3 with her mother and 3 with her dad. She lives with a roommate and roommates boyfriend. Unemployed. . Current Visit: Yes Status: Acute Priority: Low Hospital Course: Plan of Care: [She was formal voluntary admitted to [address] [place] [address]. She'll be evaluated by medicine, psychiatry, nursing staff, social work and occupational therapy. She will be integrated in the zapata milieu therapeutic environment whereby she'll be placed on 15 minute checks and usually safety from protocol on the unit. She will be reinstituted on her medication Abilify long acting injectable medicine today. She needs thorough workup: CBC CMP and Trileptal levels to better understand where her current state of usage. She also admits to using heroin 3 days ago. 08/05/2018: Still has anxiety, depression, neck pain, low back pain. Will add Zoloft 50 mg by mouth daily at bedtime for depression and anxiety. We will add Cogentin for muscle stiffness which may be EPS. I'll also add lidocaine 5% patch to low back region for her pain over her sciatica. She remains on 15 minute checks and useful safety protocol the unit. Trileptal level was within therapeutic range but low. We'll consider increasing that over the next 2 days.] a script for abilify maintennea was written and [facility] to [facility] The next dose of Abilify injection should be 08/29/2018. Mental status examination time of discharge: The patient presents alert, pleasant, and cooperative. There calmly seated without any agitated behavior. [She] reports that [her] mood is good. Affect is congruent and euthymic. [She] deny having any suicidal or homicidal ideation intent or plan. [She] denies any auditory or visual hallucinations. There is no evidence of any delusional thought content. [Her] thought process is linear and goal-directed. [Her] speech is fluent and nonpressured. [Her] memory and concentration is grossly intact for the purposes of this session. Patient Condition at Discharge: Stable Plan - Discharge Summary Discharge Rx Participant: Yes New Discharge Prescriptions: New ARIPiprazole IM SYRINGE [Abilify Maintena Syringe] 400 mg IM Q28D 28 Days #1 syringe Benztropine Mesylate [Cogentin] 0.5 mg PO BID 30 Days #60 tab Meloxicam [Mobic] 7.5 mg PO BID 30 Days #60 tab OXcarbazepine [Trileptal] 600 mg PO BID 30 Days #120 tab Sertraline [Zoloft] 50 mg PO HS 30 Days #30 tab Continue Gabapentin 800 mg PO TID ARIPiprazole IM SYRINGE [Abilify Maintena Syringe] 400 mg IM Q28D amLODIPine [Norvasc] 5 mg PO DAILY Albuterol Sulfate [Proair Respiclick] 2 puff INHALATION RT-Q4H PRN PRN Reason: Shortness Of Breath Discontinued OXcarbazepine [Oxtellar Xr] 300 mg PO BID Escitalopram [Lexapro] 10 mg PO DAILY No Action Ergocalciferol [Vitamin D2] 50,000 unit PO Q7D Sertraline [Zoloft] 50 mg PO HS Discharge Medication List Gabapentin 800 mg PO TID 01/25/18 [History] ARIPiprazole IM SYRINGE [Abilify Maintena Syringe] 400 mg IM Q28D 03/20/18 [History] Albuterol Sulfate [Proair Respiclick] 2 puff INHALATION RT-Q4H PRN 08/01/18 [History] Ergocalciferol [Vitamin D2] 50,000 unit PO Q7D 08/01/18 [History] Sertraline [Zoloft] 50 mg PO HS 08/01/18 [History] amLODIPine [Norvasc] 5 mg PO DAILY 08/01/18 [History] ARIPiprazole IM SYRINGE [Abilify Maintena Syringe] 400 mg IM Q28D 28 Days #1 syringe 08/07/18 [Rx] Benztropine Mesylate [Cogentin] 0.5 mg PO BID 30 Days #60 tab 08/07/18 [Rx] Meloxicam [Mobic] 7.5 mg PO BID 30 Days #60 tab 08/07/18 [Rx] OXcarbazepine [Trileptal] 600 mg PO BID 30 Days #120 tab 08/07/18 [Rx] Sertraline [Zoloft] 50 mg PO HS 30 Days #30 tab 08/07/18 [Rx] Follow up Appointment(s)/Referral(s): [facility] [Outside] - 08/12/18 9:00 am (08-12-18 @ 9:00 with Robbie Small 08-20-18 @ 9:00 with Kai Turcios) [facility] [Primary Care Provider] - 1-2 days Activity/Diet/Wound Care/Special Instructions: Activity and diet as tolerated. Avoid the use of street drugs and alcohol. Take all medications as prescribed. Contact your provider when your need a refill. Please go to all outpatient appointments for aftercare treatments. If symptoms return or become worse, call the crisis line at [phone] and or go to the nearest emergency room for evaluation. Discharge Disposition: HOME SELF-CARE
== END 2018-08-07 15:58 | disposition home or self-care (01) | DRG 885 ==
LOC: EC 15:20 → 3MHU 17:41
PROVIDERS: ADMIT Psychiatry & Neurology Psychiatry; ATTEND Psychiatry & Neurology Psychiatry
DX: F31.9 Bipolar disorder, unspecified (principal); R45.851 Suicidal ideations; G40.909 Epilepsy, unspecified, not intractable, without status epilepticus; F60.3 Borderline personality disorder; F41.0 Panic disorder [episodic paroxysmal anxiety]; F43.10 Post-traumatic stress disorder, unspecified; F10.10 Alcohol abuse, uncomplicated; J44.9 Chronic obstructive pulmonary disease, unspecified; K21.9 Gastro-esophageal reflux disease without esophagitis; I10 Essential (primary) hypertension; G25.81 Restless legs syndrome; M54.40 Lumbago with sciatica, unspecified side; M54.2 Cervicalgia; R73.03 Prediabetes; F11.11 Opioid abuse, in remission; F17.210 Nicotine dependence, cigarettes, uncomplicated; Z71.6 Tobacco abuse counseling; Z79.899 Other long term (current) drug therapy; Z62.810 Personal history of physical and sexual abuse in childhood; Z91.5 Personal history of self-harm; Z98.51 Tubal ligation status; Z98.890 Other specified postprocedural states; Z91.030 Bee allergy status; Z91.013 Allergy to seafood; Z91.018 Allergy to other foods; Z80.1 Family history of malignant neoplasm of trachea, bronchus and lung; Z80.8 Family history of malignant neoplasm of other organs or systems; Z81.3 Family history of other psychoactive substance abuse and dependence
CPT/HCPCS: 80053; 80061; 80183; 80306; 81001; 81025; 82075; 82248; 83036; 84436; 84439; 84443; 84480; 84481; 85025; 93005; 94640; 99285

== ENCOUNTER 2021-12-29 14:06 | Emergency (ER) | payer OTHER ==
[2021-12-29 14:38] LABS: Anisocytosis Slight; Basophils # (A) 0.1 k/uL (0-0.2); Basophils % (A) 1 %; Eosinophils # (A) 0.2 k/uL (0-0.7); Eosinophils % (A) 2 %; HCT 40.2 % (34.0-46.0); HGB 12.6 gm/dL (11.4-16.0); Lymphocytes # (A) 3.8 k/uL (1.0-4.8); Lymphocytes % (A) 28 %; MCH 26.3 pg (25.0-35.0); MCHC 31.4 g/dL (31.0-37.0); MCV 83.8 fL (80.0-100.0); Mean Platelet Volume 7.5; Monocytes # (A) 0.5 k/uL (0-1.0); Monocytes % (A) 4 %; Neutrophils # (A) 8.8 k/uL (1.3-7.7); Neutrophils % (A) 65 %; Platelet Count 377 k/uL (150-450); RDW 16.1 % (11.5-15.5); WBC 13.6 k/uL (3.8-10.6)
[2021-12-29 14:46] LABS: INR 0.9 (<1.2); Partial Thromboplastin Time 24.1 sec (22.0-30.0); Prothrombin Time 9.8 sec (9.0-12.0)
[2021-12-29 14:48] LABS: Albumin 4.3 g/dL (3.5-5.0); Calcium 9.4 mg/dL (8.4-10.2); Potassium 4.3 mmol/L (3.5-5.1); Total Bilirubin 0.2 mg/dL (0.2-1.3); Total Protein 7.3 g/dL (6.3-8.2)
[2021-12-29 15:11] VITALS: BP 141/84; PULSE 101; RESP 18; TEMP 98.2
--- NOTE | 2021-12-29 17:32 | XR ---
EXAMINATION TYPE: XR chest 2V DATE OF EXAM: 12/29/2021 COMPARISON: 02/08/2018 HISTORY: Chest pressure TECHNIQUE: Frontal and lateral views of the chest are obtained. FINDINGS: There is mild interstitial prominence. No significant infiltrate, pleural effusion, or pne umothorax seen. The cardiac silhouette size is within normal limits. The osseous structures are in tact. IMPRESSION: Mild interstitial edema versus atelectasis.
--- NOTE | 2021-12-29 19:39 | ED ---
Anxiety HPI - General Chief Complaint: Anxiety Stated Complaint: poss TIA Time Seen by Provider: 12/29/21 17:15 Source: patient, RN notes reviewed Mode of arrival: ambulatory - History of Present Illness Initial Comments: This is a pleasant 51-year-old female with a history of anxiety, depression, bipolar disorder. Patient was in group therapy at [facility] when she started feeling a bit stressed out. She states she then felt like she was a bit lightheaded and started feeling very anxious. Patient states that she thought she had some difficulty breathing and had some chest discomfort. Patient states she kind of felt like she was going to pass out. Patient was initially seen here because staff at the facility wanted her checked out as she previously had a TIA. However she denied any focal weakness. There is no vision or hearing changes. No slurred speech. No extremity weakness. No vertigo symptoms. Patient states she is completely better now. Patient has been in our waiting room for about 5 hours. Actually found the patient outside smoking a cigarette. LIGHTHEADEDNESS, No headache, no fever or chills, no changes in vision or hearing, no sore throat or difficulty with speech, no neck pain,no abdominal pain, no nausea or vomiting, no changes in urination or bowel movements, no numbness or tingling, no extremity pain, no skin rashes or lesions. Past medical, surgical, social, and family history reviewed. - Related Data Home Medications: Home Medications Medication Instructions Recorded Confirmed ARIPiprazole IM SYRINGE [Abilify 400 mg IM Q28D 03/20/18 08/01/18 Maintena Syringe] Albuterol Sulfate [Proair 2 puff INHALATION RT-Q4H PRN 08/01/18 08/01/18 Respiclick] Ergocalciferol [Vitamin D2] 50,000 unit PO Q7D 08/01/18 08/01/18 Sertraline [Zoloft] 50 mg PO HS 08/01/18 08/01/18 amLODIPine [Norvasc] 5 mg PO DAILY 08/01/18 08/01/18 Previous Rx's Medication Instructions Recorded ARIPiprazole IM SYRINGE [Abilify 400 mg IM Q28D 28 Days #1 syringe 08/07/18 Maintena Syringe] Benztropine Mesylate [Cogentin] 0.5 mg PO BID 30 Days #60 tab 08/07/18 Gabapentin 800 mg PO TID 30 Days #90 08/07/18 Meloxicam [Mobic] 7.5 mg PO BID 30 Days #60 tab 08/07/18 OXcarbazepine [Trileptal] 600 mg PO BID 30 Days #120 tab 08/07/18 Sertraline [Zoloft] 50 mg PO HS 30 Days #30 tab 08/07/18 Allergies/Adverse Reactions: Allergies Allergy/AdvReac Type Severity Reaction Status Date / Time Fish Containing Products Allergy Anaphylaxis Verified 12/29/21 15:11 [Fish] onion Allergy Anaphylaxis Verified 12/29/21 15:11 shellfish derived [Shellfish] Allergy Anaphylaxis Verified 12/29/21 15:11 venom-honey bee Allergy Anaphylaxis Verified 12/29/21 15:11 [bee venom (honey bee)] Review of Systems ROS Statement: Those systems with pertinent positive or pertinent negative responses have been documented in the HPI. ROS Other: All systems not noted in ROS Statement are negative. Past Medical History Past Medical History: COPD, GERD/Reflux, Hypertension, Musculoskeletal Disorder, Seizure Disorder Additional Past Medical History / Comment(s): ANXIETY, Depression, suicide attempt, Bipolar, Borderline Traits. Pt. states last seizure was 11/10/13 History of Any Multi-Drug Resistant Organisms: None Reported Past Surgical History: Tubal Ligation Additional Past Surgical History / Comment(s): "Tummy Tuck" Past Anesthesia/Blood Transfusion Reactions: No Reported Reaction Additional Past Anesthesia/Blood Transfusion Reaction / Comment(s): Unknown, patient poor historian. Past Psychological History: Anxiety, Bipolar, Depression Smoking Status: Current every day smoker Past Alcohol Use History: None Reported Past Drug Use History: Heroin, Prescription Drug Abuse - Past Family History Father Additional Family Medical History / Comment(s): Father at age 63 with brain cancer and lung cancer. Mother Additional Family Medical History / Comment(s): Mother at age 54 due to a drunk driving car accident. Brother(s) Additional Family Medical History / Comment(s): Patient has 3 half brothers. One from a heroin overdose. 2 have no major medical problems. Sister(s) Additional Family Medical History / Comment(s): Patient has 6 half sisters that she does not have contact with. Daughter(s) Additional Family Medical History / Comment(s): Patient has 2 daughters and 1 son. She states she has not seen her 2 youngest children in 5 years as they were taken by their father to [place]. General Exam - General Exam Comments Initial Comments: Patient does not appear to be ill or toxic. Vital signs reviewed. Cranial nerves II through XII are intact. Patient is alert and oriented 4. Finger to nose testing is normal. Cwfk-wx-fork testing normal. Romberg is normal. Gait is normal. General appearance: alert, in no apparent distress Head exam: Present: atraumatic, normocephalic, normal inspection Eye exam: Present: normal appearance, PERRL, EOMI. Absent: scleral icterus, conjunctival injection, periorbital swelling ENT exam: Present: normal exam, normal oropharynx, mucous membranes moist, TM's normal bilaterally, normal external ear exam. Absent: mucous membranes dry Neck exam: Present: normal inspection, full ROM. Absent: tenderness, m eningismus, lymphadenopathy Respiratory exam: Present: normal lung sounds bilaterally. Absent: respiratory distress, wheezes, rales, rhonchi, stridor, chest wall tenderness, accessory muscle use, decreased breath sounds, prolonged expiratory Cardiovascular Exam: Present: regular rate, normal rhythm, normal heart sounds. Absent: systolic murmur, diastolic murmur, rubs, gallop, clicks GI/Abdominal exam: Present: soft, normal bowel sounds. Absent: distended, tenderness, guarding, rebound, rigid, diminished bowel sounds, hyperactive bowel sounds, hypoactive bowel sounds Extremities exam: Present: normal inspection, full ROM, normal capillary refill. Absent: tenderness, pedal edema, joint swelling, calf tenderness Back exam: Present: normal inspection Neurological exam: Present: alert, oriented X3, CN II-XII intact Psychiatric exam: Present: normal affect, normal mood. Absent: anxious, flat affect, manic, homicidal ideation Skin exam: Present: warm, dry, intact, normal color. Absent: rash Course Vital Signs 12/29/21 15:01 Temperature 98.2 F Pulse Rate 101 H Respiratory 18 Rate Blood Pressure 141/84 O2 Sat by Pulse 98 Oximetry Medical Decision Making - Medical Decision Making It sounds as if the patient likely had a panic attack as she was sitting group therapy. Patient states she was stressed out about the conversation something that happened earlier. Patient is asymptomatic at this time. Patient's cardiopulmonary workup here is essentially negative. Possible mild interstitial edema on chest x-ray does not correlate with clinical findings. Again, patient asymptomatic at time I'm seeing her. Patient had negative troponin. Remainder of the patient's blood work is essentially normal aside from a white blood cell count of 13,600 which is likely stress reaction. Patient is afebrile. The case was discussed in detail with ED attending physician. Presentation, findings, treatment plan discussed in detail. Patient was told to return to the ER for any signs or symptoms worsen. Told to return immediately if any other problems arise. All questions answered. Treatment plan discussed. Patient in agreement Every effort has been made to ensure accuracy of this dictation. However, due to the limitations of electronic medical records and dictation devices, errors in charting still occur. Patient was reevaluated prior to discharge, vital signs stable, patient afebrile. Heart rate 84 by radial pulse on auscultation Director Hair Dr. Montero - Lab Data Result diagrams: 12/29/21 14:18 12/29/21 14:18 Lab Results 12/29/21 12/29/21 12/29/21 Range/Units 14:18 14:18 14:18 WBC 13.6 H (3.8-10.6) k/uL RBC 4.80 (3.80-5.40) m/uL Hgb 12.6 (11.4-16.0) gm/dL Hct 40.2 (34.0-46.0) % MCV 83.8 (80.0-100.0) fL MCH 26.3 (25.0-35.0) pg MCHC 31.4 (31.0-37.0) g/dL RDW 16.1 H (11.5-15.5) % Plt Count 377 (150-450) k/uL MPV 7.5 Neutrophils % 65 % Lymphocytes % 28 % Monocytes % 4 % Eosinophils % 2 % Basophils % 1 % Neutrophils # 8.8 H (1.3-7.7) k/uL Lymphocytes # 3.8 (1.0-4.8) k/uL Monocytes # 0.5 (0-1.0) k/uL Eosinophils # 0.2 (0-0.7) k/uL Basophils # 0.1 (0-0.2) k/uL Anisocytosis Slight PT 9.8 (9.0-12.0) sec INR 0.9 (<1.2) APTT 24.1 (22.0-30.0) sec Sodium 140 (137-145) mmol/L Potassium 4.3 (3.5-5.1) mmol/L Chloride 102 (98-107) mmol/L Carbon Dioxide 23 (22-30) mmol/L Anion Gap 15 mmol/L BUN 20 H (7-17) mg/dL Creatinine 0.95 (0.52-1.04) mg/dL Est GFR (CKD-EPI)AfAm 82 (>60 ml/min/1.73 sqM) Est GFR (CKD-EPI)NonAf 71 (>60 ml/min/1.73 sqM) Glucose 126 H (74-99) mg/dL Calcium 9.4 (8.4-10.2) mg/dL Total Bilirubin 0.2 (0.2-1.3) mg/dL AST 26 (14-36) U/L ALT 17 (4-34) U/L Alkaline Phosphatase 101 (38-126) U/L Troponin I (0.000-0.034) ng/mL Total Protein 7.3 (6.3-8.2) g/dL Albumin 4.3 (3.5-5.0) g/dL 12/29/21 Range/Units 14:18 WBC (3.8-10.6) k/uL RBC (3.80-5.40) m/uL Hgb (11.4-16.0) gm/dL Hct (34.0-46.0) % MCV (80.0-100.0) fL MCH (25.0-35.0) pg MCHC (31.0-37.0) g/dL RDW (11.5-15.5) % Plt Count (150-450) k/uL MPV Neutrophils % % Lymphocytes % % Monocytes % % Eosinophils % % Basophils % % Neutrophils # (1.3-7.7) k/uL Lymphocytes # (1.0-4.8) k/uL Monocytes # (0-1.0) k/uL Eosinophils # (0-0.7) k/uL Basophils # (0-0.2) k/uL Anisocytosis PT (9.0-12.0) sec INR (<1.2) APTT (22.0-30.0) sec Sodium (137-145) mmol/L Potassium (3.5-5.1) mmol/L Chloride (98-107) mmol/L Carbon Dioxide (22-30) mmol/L Anion Gap mmol/L BUN (7-17) mg/dL Creatinine (0.52-1.04) mg/dL Est GFR (CKD-EPI)AfAm (>60 ml/min/1.73 sqM) Est GFR (CKD-EPI)NonAf (>60 ml/min/1.73 sqM) Glucose (74-99) mg/dL Calcium (8.4-10.2) mg/dL Total Bilirubin (0.2-1.3) mg/dL AST (14-36) U/L ALT (4-34) U/L Alkaline Phosphatase (38-126) U/L Troponin I <0.012 (0.000-0.034) ng/mL Total Protein (6.3-8.2) g/dL Albumin (3.5-5.0) g/dL - EKG Data -: EKG Interpreted by [facility] EKG Comments: EKG done at 1953 and read by the ED attending physician reveals sinus rhythm with a rate of 90, baseline artifact, normal axis, no acute ST or T-wave changes. Normal intervals. Normal QRS morphology. - Radiology Data Radiology results: report reviewed (Chest x-ray shows mild interstitial edema by radiology. However review this film myself patient has no adventitious lung sounds and no respiratory distress at the time I'm seeing her. No evidence of failure on clinical examination), image reviewed Disposition Clinical Impression: Anxiety attack, Hyperventilation Disposition: HOME SELF-CARE Condition: Good Instructions (If sedation given, give patient instructions): Generalized Anxiety Disorder (ED) Is patient prescribed a controlled substance at d/c from ED?: No Referrals: [facility] [Primary Care Provider] - 1-2 days Time of Disposition: 20:20
== END 2021-12-29 23:16 | disposition home or self-care (01) ==
LOC: EC 14:06
DX: F41.9 Anxiety disorder, unspecified (principal); R06.4 Hyperventilation; I10 Essential (primary) hypertension; J44.9 Chronic obstructive pulmonary disease, unspecified; F17.200 Nicotine dependence, unspecified, uncomplicated; Z91.013 Allergy to seafood; Z91.018 Allergy to other foods; Z91.030 Bee allergy status; Z79.51 Long term (current) use of inhaled steroids; Z79.899 Other long term (current) drug therapy
CPT/HCPCS: 36415; 71046; 80053; 84484; 85025; 85610; 85730; 99284

== ENCOUNTER 2022-05-11 13:40 | Emergency (ER) | payer BC, OTHER ==
[2022-05-11 13:50] VITALS: TEMP 98
--- NOTE | 2022-05-11 15:11 | US ---
EXAMINATION TYPE: US venous doppler duplex LE RT DATE OF EXAM: 05/11/2022 3:04 PM COMPARISON: US CLINICAL HISTORY: leg swelling. Swelling. No hx of DVT. SIDE PERFORMED: Right TECHNIQUE: The lower extremity deep venous system is examined utilizing real time linear array sonog yuliya with graded compression, doppler sonography and color-flow sonography. VESSELS IMAGED: Common Femoral Vein Deep Femoral Vein Greater Saphenous Vein * Femoral Vein Popliteal Vein Small Saphenous Vein * Proximal Calf Veins (* superficial vessels) Right Leg: No evidence of DVT. IMPRESSION: No evidence for DVT
--- NOTE | 2022-05-11 15:38 | ED ---
Extremity Problem HPI - General Chief complaint: Extremity Problem,Nontraumatic Stated complaint: Right leg swelling and pain Time Seen by Provider: 05/11/22 14:00 Source: patient Mode of arrival: ambulatory Limitations: no limitations - History of Present Illness Initial comments: 51 year old female presents for right calf pain. symptoms have been present for months however states pain has been worse for the past 2 days. no trauma. no hx of dvt or pe. Does have history of bakers cyst - Related Data Home Medications Medication Instructions Recorded Confirmed ARIPiprazole IM SYRINGE [Abilify 400 mg IM Q28D 03/20/18 08/01/18 Maintena Syringe] Albuterol Sulfate [Proair 2 puff INHALATION RT-Q4H PRN 08/01/18 08/01/18 Respiclick] Ergocalciferol [Vitamin D2] 50,000 unit PO Q7D 08/01/18 08/01/18 Sertraline [Zoloft] 50 mg PO HS 08/01/18 08/01/18 amLODIPine [Norvasc] 5 mg PO DAILY 08/01/18 08/01/18 Previous Rx's Medication Instructions Recorded ARIPiprazole IM SYRINGE [Abilify 400 mg IM Q28D 28 Days #1 syringe 08/07/18 Maintena Syringe] Benztropine Mesylate [Cogentin] 0.5 mg PO BID 30 Days #60 tab 08/07/18 Gabapentin 800 mg PO TID 30 Days #90 08/07/18 Meloxicam [Mobic] 7.5 mg PO BID 30 Days #60 tab 08/07/18 OXcarbazepine [Trileptal] 600 mg PO BID 30 Days #120 tab 08/07/18 Sertraline [Zoloft] 50 mg PO HS 30 Days #30 tab 08/07/18 methocarbamoL [Robaxin-750] 750 mg PO TID #21 tab 05/11/22 Allergies Allergy/AdvReac Type Severity Reaction Status Date / Time Fish Containing Products Allergy Anaphylaxis Verified 12/29/21 15:11 [Fish] onion Allergy Anaphylaxis Verified 12/29/21 15:11 shellfish derived [Shellfish] Allergy Anaphylaxis Verified 12/29/21 15:11 venom-honey bee Allergy Anaphylaxis Verified 12/29/21 15:11 [bee venom (honey bee)] Review of Systems ROS Statement: Those systems with pertinent positive or pertinent negative responses have been documented in the HPI. ROS Other: All systems not noted in ROS Statement are negative. Past Medical History Past Medical History: Asthma, COPD, GERD/Reflux, Hyperlipidemia, Hypertension, Musculoskeletal Disorder, Seizure Disorder Additional Past Medical History / Comment(s): ANXIETY, Depression, suicide attempt, Bipolar, Borderline Traits. Pt. states last seizure was 11/10/13 History of Any Multi-Drug Resistant Organisms: None Reported Past Surgical History: Tubal Ligation Additional Past Surgical History / Comment(s): "Tummy Tuck" Past Anesthesia/Blood Transfusion Reactions: No Reported Reaction Additional Past Anesthesia/Blood Transfusion Reaction / Comment(s): Unknown, patient poor historian. Past Psychological History: Anxiety, Bipolar, Depression Smoking Status: Current every day smoker Past Alcohol Use History: None Reported Past Drug Use History: Heroin, Prescription Drug Abuse - Past Family History Father Additional Family Medical History / Comment(s): Father at age 63 with brain cancer and lung cancer. Mother Additional Family Medical History / Comment(s): Mother at age 54 due to a drunk driving car accident. Brother(s) Additional Family Medical History / Comment(s): Patient has 3 half brothers. One from a heroin overdose. 2 have no major medical problems. Sister(s) Additional Family Medical History / Comment(s): Patient has 6 half sisters that she does not have contact with. Daughter(s) Additional Family Medical History / Comment(s): Patient has 2 daughters and 1 son. She states she has not seen her 2 youngest children in 5 years as they were taken by their father to [place]. General Exam Limitations: no limitations General appearance: alert, in no apparent distress Extremities exam: Present: normal inspection, full ROM, normal capillary refill, other (no redness, no warmth, no rash, no fluctuance). Absent: tenderness, pedal edema, joint swelling, calf tenderness Back exam: Present: normal inspection Course Vital Signs 05/11/22 05/11/22 13:48 16:11 Temperature 98 F Pulse Rate 90 97 Respiratory 16 18 Rate Blood Pressure 159/87 148/76 O2 Sat by Pulse 98 98 Oximetry Medical Decision Making - Medical Decision Making Was pt. sent in by a medical professional or institution? no Did you speak to anyone other than the patient for history? no Did you review nursing and triage notes? yes and I agree Were old charts reviewed? no Differential Diagnosis? DVT, superficial thrombophebitis, muscle strain, bakers cyst EKG interpreted by me (3pts min.)? no X-rays interpreted by me (1pt min.)? no CT interpreted by me (1pt min.)? no U/S interpreted by me (1pt. min.)? yes What testing was considered but not performed? (CT, X-rays, U/S, labs)? Why? none What meds were considered but not given? Why? none Did you discuss the management of the patient with other professionals? no Did you reconcile home meds? no Was smoking cessation discussed for >3mins.? no Was critical care preformed (if so, how long)? no Were there social determinants of health that impacted care today? How? (Homelessness, low income, unemployed, alcoholism, drug addiction, transportation, low edu. Level, literacy, decrease access to med. care, long term, rehab)? no Was there de-escalation of care discussed even if they declined? (Discuss DNR or withdrawal of care, Hospice)? no What co-morbidities impacted this encounter? (DM, HTN, Smoking, COPD, CAD, Cancer, CVA, Hep., AIDS, mental health diagnosis, sleep apnea, morbid obesity)? none Was patient admitted / discharged? discharged home Undiagnosed new problem with uncertain prognosis? yes Drug Therapy requiring intensive monitoring for toxicity (Heparin, Nitro, Insulin, Cardizem)? no Were any procedures done? no Diagnosis/symptom? acute/chronic right leg pain Acute, or Chronic, or Acute on Chronic? acute on chronic Uncomplicated (without systemic symptoms) or Complicated (systemic symptoms)? uncomplicated Side effects of treatment? none Exacerbation, Progression, or Severe Exacerbation] no Poses a threat to life or bodily function? no Disposition Clinical Impression: Leg pain Disposition: HOME SELF-CARE Condition: Stable Instructions (If sedation given, give patient instructions): Leg Pain (ED) Additional Instructions: Please follow-up with orthopedic doctor for further evaluation return for any new or worsening symptoms Prescriptions: methocarbamoL [Robaxin-750] 750 mg PO TID #21 tab Is patient prescribed a controlled substance at d/c from ED?: No Referrals: Tio Puckett DO [Primary Care Provider] - 1-2 days Boris Antoine DO [Doctor of Osteopathic Medicine] - 1-2 days Time of Disposition: 15:37
[2022-05-11 16:12] VITALS: BP 148/76; PULSE 97; RESP 18
== END 2022-05-11 16:12 | disposition home or self-care (01) ==
LOC: EC 13:40
DX: M79.604 Pain in right leg (principal); J44.9 Chronic obstructive pulmonary disease, unspecified; I10 Essential (primary) hypertension; G40.909 Epilepsy, unspecified, not intractable, without status epilepticus; F41.9 Anxiety disorder, unspecified; F31.9 Bipolar disorder, unspecified; F17.200 Nicotine dependence, unspecified, uncomplicated; Z91.013 Allergy to seafood; Z91.018 Allergy to other foods; Z91.030 Bee allergy status; Z79.899 Other long term (current) drug therapy
CPT/HCPCS: 99283

== ENCOUNTER 2022-06-29 11:05 | Emergency (ER) | payer BC, OTHER ==
[2022-06-29 11:23] VITALS: TEMP 98.3
[2022-06-29] MEDS ORDERED: ONDANSETRON 4 MG/2 ML VIAL IVP STA (11:58)
[2022-06-29] MEDS ORDERED: SODIUM CHLORIDE 0.9% 500 ML 500 ML IV STA (11:58)
[2022-06-29] MEDS ORDERED: KETOROLAC 15 MG/ML 1 ML VIAL IVP STA ×2 (11:58→15:22)
[2022-06-29] MEDS ORDERED: SODIUM CHLORIDE 0.9% 1,000 ML IV STA (11:58)
[2022-06-29 12:45] LABS: Basophils % (A) 0 %; Eosinophils # (A) 0.4 k/uL (0-0.7); Eosinophils % (A) 4 %; HCT 38.1 % (34.0-46.0); HGB 13.2 gm/dL (11.4-16.0); Lymphocytes # (A) 2.8 k/uL (1.0-4.8); Lymphocytes % (A) 30 %; MCH 30.6 pg (25.0-35.0); MCHC 34.5 g/dL (31.0-37.0); MCV 88.5 fL (80.0-100.0); Mean Platelet Volume 8.2; Monocytes # (A) 0.3 k/uL (0-1.0); Monocytes % (A) 3 %; Neutrophils # (A) 5.6 k/uL (1.3-7.7); Neutrophils % (A) 60 %; Platelet Count 288 k/uL (150-450); RBC 4.31 m/uL (3.80-5.40); RDW 14.5 % (11.5-15.5); WBC 9.3 k/uL (3.8-10.6)
--- NOTE | 2022-06-29 12:51 | XR ---
EXAMINATION TYPE: XR chest 2V DATE OF EXAM: 06/29/2022 12:45 PM COMPARISON: Chest radiographs from 12/29/2021 TECHNIQUE: XR chest 2V Frontal and lateral views of the chest. CLINICAL INDICATION:Female, 51 years old with history of abdominal pain; FINDINGS: Lungs/Pleura: There is no evidence of pleural effusion, focal consolidation, or pneumothorax. Pulmonary vascularity: Unremarkable. Heart/mediastinum: Cardiomediastinal silhouette is unremarkable. Musculoskeletal: No acute osseous pathology. IMPRESSION: No acute cardiopulmonary disease/process.
[2022-06-29 13:01] LABS: ALT 20 U/L (4-34); AST 27 U/L (14-36); African American GFR (CKD) >90 (>60 ml/min/1.73 sqM); Albumin 3.3 g/dL (3.5-5.0); Alkaline Phosphatase 80 U/L (38-126); Anion Gap 2 mmol/L; Blood Urea Nitrogen 9 mg/dL (7-17); Calcium 8.3 mg/dL (8.4-10.2); Carbon Dioxide 28 mmol/L (22-30); Chloride 106 mmol/L (98-107); Glucose 109 mg/dL (74-99); Lipase 73 U/L (23-300); Non-African American GFR(CKD) >90 (>60 ml/min/1.73 sqM); Sodium 136 mmol/L (137-145); Total Bilirubin 0.2 mg/dL (0.2-1.3); Total Protein 5.7 g/dL (6.3-8.2)
--- NOTE | 2022-06-29 13:16 | ED ---
Abdominal Pain HPI - General Chief Complaint: Abdominal Pain Stated Complaint: L Side Swelling Time Seen by Provider: 06/29/22 11:30 Source: patient, RN notes reviewed Mode of arrival: ambulatory Limitations: no limitations - History of Present Illness Initial Comments: 51-year-old female presents emergency Department complaining of left-sided abdominal, left leg swelling and pain. Patient states she just feels very anxious feels like symptoms off. She denies any significant chest pain other than that she feels anxious. Patient states she has no history DVT she is initially she just was on her feet longer than usual she recently went back to work. Patient denies any trauma no rashes denies any significant change in bowel habits - Related Data Home Medications Medication Instructions Recorded Confirmed ARIPiprazole IM SYRINGE [Abilify 400 mg IM Q28D 03/20/18 08/01/18 Maintena Syringe] Albuterol Sulfate [Proair 2 puff INHALATION RT-Q4H PRN 08/01/18 08/01/18 Respiclick] Ergocalciferol [Vitamin D2] 50,000 unit PO Q7D 08/01/18 08/01/18 Sertraline [Zoloft] 50 mg PO HS 08/01/18 08/01/18 amLODIPine [Norvasc] 5 mg PO DAILY 08/01/18 08/01/18 Previous Rx's Medication Instructions Recorded ARIPiprazole IM SYRINGE [Abilify 400 mg IM Q28D 28 Days #1 syringe 08/07/18 Maintena Syringe] Benztropine Mesylate [Cogentin] 0.5 mg PO BID 30 Days #60 tab 08/07/18 Gabapentin 800 mg PO TID 30 Days #90 08/07/18 Meloxicam [Mobic] 7.5 mg PO BID 30 Days #60 tab 08/07/18 OXcarbazepine [Trileptal] 600 mg PO BID 30 Days #120 tab 08/07/18 Sertraline [Zoloft] 50 mg PO HS 30 Days #30 tab 08/07/18 methocarbamoL [Robaxin-750] 750 mg PO TID #21 tab 05/11/22 Cyclobenzaprine [Flexeril] 10 mg PO TID PRN #15 tab 06/29/22 Allergies Allergy/AdvReac Type Severity Reaction Status Date / Time Fish Containing Products Allergy Anaphylaxis Verified 06/29/22 11:23 [Fish] onion Allergy Anaphylaxis Verified 06/29/22 11:23 shellfish derived [Shellfish] Allergy Anaphylaxis Verified 06/29/22 11:23 venom-honey bee Allergy Anaphylaxis Verified 06/29/22 11:23 [bee venom (honey bee)] Review of Systems ROS Statement: Those systems with pertinent positive or pertinent negative responses have been documented in the HPI. ROS Other: All systems not noted in ROS Statement are negative. Past Medical History Past Medical History: Asthma, COPD, GERD/Reflux, Hyperlipidemia, Hypertension, Musculoskeletal Disorder, Seizure Disorder Additional Past Medical History / Comment(s): ANXIETY, Depression, suicide attempt, Bipolar, Borderline Traits. Pt. states last seizure was 11/10/13 History of Any Multi-Drug Resistant Organisms: None Reported Past Surgical History: Tubal Ligation Additional Past Surgical History / Comment(s): "Tummy Tuck" Past Anesthesia/Blood Transfusion Reactions: No Reported Reaction Additional Past Anesthesia/Blood Transfusion Reaction / Comment(s): Unknown, patient poor historian. Past Psychological History: Anxiety, Bipolar, Depression Smoking Status: Current every day smoker Past Alcohol Use History: None Reported Past Drug Use History: Heroin, Prescription Drug Abuse - Past Family History Father Additional Family Medical History / Comment(s): Father at age 63 with brain cancer and lung cancer. Mother Additional Family Medical History / Comment(s): Mother at age 54 due to a drunk driving car accident. Brother(s) Additional Family Medical History / Comment(s): Patient has 3 half brothers. One from a heroin overdose. 2 have no major medical problems. Sister(s) Additional Family Medical History / Comment(s): Patient has 6 half sisters that she does not have contact with. Daughter(s) Additional Family Medical History / Comment(s): Patient has 2 daughters and 1 son. She states she has not seen her 2 youngest children in 5 years as they were taken by their father to [place]. General Exam Limitations: no limitations General appearance: alert, in no apparent distress, anxious Head exam: Present: atraumatic, normocephalic, normal inspection Eye exam: Present: normal appearance, PERRL, EOMI. Absent: scleral icterus, conjunctival injection, periorbital swelling ENT exam: Present: normal exam, normal oropharynx, mucous membranes moist Neck exam: Present: normal inspection, full ROM. Absent: tenderness, meningismus, lymphadenopathy Respiratory exam: Present: normal lung sounds bilaterally. Absent: respiratory distress, wheezes, rales, rhonchi, stridor Cardiovascular Exam: Present: regular rate, normal rhythm, normal heart sounds. Absent: systolic murmur, diastolic murmur, rubs, gallop, clicks GI/Abdominal exam: Present: soft, normal bowel sounds. Absent: distended, tende rness, guarding, rebound, rigid Neurological exam: Present: alert Skin exam: Present: warm, dry, intact, normal color. Absent: rash Course Vital Signs 06/29/22 06/29/22 11:20 13:27 Temperature 98.3 F Pulse Rate 99 94 Respiratory 16 18 Rate Blood Pressure 159/91 153/80 O2 Sat by Pulse 99 99 Oximetry Medical Decision Making - Medical Decision Making Was pt. sent in by a medical professional or institution (, PA, EARLY CHILDHOOD DIRECTOR, urgent care, hospital, or residential...) When possible be specific @ -No Did you speak to anyone other than the patient for history (EMS, parent, family, police, friend...)? What history was obtained from this source @ -No Did you review nursing and triage notes (agree or disagree)? Why? @ -I reviewed and agree with nursing and triage notes Were old charts reviewed (outside hosp., previous admission, EMS record, old EKG, old radiological studies, urgent care reports/EKG's, residential records)? Report findings @ -No old charts were reviewed Differential Diagnosis (chest pain, altered mental status, abdominal pain women, abdominal pain men, vaginal bleeding, weakness, fever, dyspnea, syncope, headache, dizziness, GI bleed, back pain, seizure, CVA, palpatations, mental health, musculoskeletal)? @ -Negative edema, DVT, popliteal cyst, abdominal pain, this list is not all- inclusive EKG interpreted by me (3pts min.). @ -EKG performed at 14:32 sinus rhythm rate of 88 SC 161/86 QTC is QTC 371/417 X-rays interpreted by me (1pt min.). @ -Chest x-ray shows no acute process CT interpreted by me (1pt min.). @ -None done U/S interpreted by me (1pt. min.). @ -Ultrasound shows popliteal cyst left What testing was considered but not performed or refused? (CT, X-rays, U/S, labs)? Why? @ -None What meds were considered but not given or refused? Why? @ -None Did you discuss the management of the patient with other professionals (professionals i.e. , PA, EARLY CHILDHOOD DIRECTOR, lab, RT, psych nurse, geriatric social work professor, intellectual property lawyer, teacher, special police officer, case maker)? Give summary @ -No Was smoking cessation discussed for >3mins.? @ -No Was critical care preformed (if so, how long)? @ -No Were there social determinants of health that impacted care today? How? (Homelessness, low income, unemployed, alcoholism, drug addiction, transportation, low edu. Level, literacy, decrease access to med. care, long-term, rehab)? @ -No Was there de-escalation of care discussed even if they declined (Discuss DNR or withdrawal of care, Hospice)? DNR status @ -No What co-morbidities impacted this encounter? (DM, HTN, Smoking, COPD, CAD, Cancer, CVA, ARF, Chemo, Hep., AIDS, mental health diagnosis, sleep apnea, mo rbid obesity)? @ -None Was patient admitted / discharged? Hospital course, mention meds given and route, prescriptions, significant lab abnormalities, going to OR and other pertinent info. @ -Discharge patient has proptosis. Patient's lab work otherwise unremarkable. Patient's very anxious. Patient will be discharged in stable condition return parameters were discussed. Undiagnosed new problem with uncertain prognosis? @ -No Drug Therapy requiring intensive monitoring for toxicity (Heparin, Nitro, Insulin, Cardizem)? @ -No Were any procedures done? @ -No Diagnosis/symptom? @ -Popliteal cyst Acute, or Chronic, or Acute on Chronic? @ -Acute Uncomplicated (without systemic symptoms) or Complicated (systemic symptoms)? @ -Uncomplicated Side effects of treatment? @ -No Exacerbation, Progression, or Severe Exacerbation? @ -No Poses a threat to life or bodily function? How? (Chest pain, USA, GA, pneumonia, PE, COPD, DKA, ARF, appy, cholecystitis, CVA, Diverticulitis, Homicidal, Suicidal, threat to staff... and all critical care pts) @ -No - Lab Data Result diagrams: 06/29/22 12:30 06/29/22 12:30 Lab Results 06/29/22 06/29/22 06/29/22 Range/Units 12:30 12:30 12:30 WBC 9.3 (3.8-10.6) k/uL RBC 4.31 (3.80-5.40) m/uL Hgb 13.2 (11.4-16.0) gm/dL Hct 38.1 (34.0-46.0) % MCV 88.5 (80.0-100.0) fL MCH 30.6 (25.0-35.0) pg MCHC 34.5 (31.0-37.0) g/dL RDW 14.5 (11.5-15.5) % Plt Count 288 (150-450) k/uL MPV 8.2 Neutrophils % 60 % Lymphocytes % 30 % Monocytes % 3 % Eosinophils % 4 % Basophils % 0 % Neutrophils # 5.6 (1.3-7.7) k/uL Lymphocytes # 2.8 (1.0-4.8) k/uL Monocytes # 0.3 (0-1.0) k/uL Eosinophils # 0.4 (0-0.7) k/uL Basophils # 0.0 (0-0.2) k/uL Sodium 136 L (137-145) mmol/L Potassium 4.0 (3.5-5.1) mmol/L Chloride 106 (98-107) mmol/L Carbon Dioxide 28 (22-30) mmol/L Anion Gap 2 mmol/L BUN 9 (7-17) mg/dL Creatinine 0.63 (0.52-1.04) mg/dL Est GFR (CKD-EPI)AfAm >90 (>60 ml/min/1.73 sqM) Est GFR (CKD-EPI)NonAf >90 (>60 ml/min/1.73 sqM) Glucose 109 H (74-99) mg/dL Plasma Lactic Acid Isac 1.0 (0.7-2.0) mmol/L Calcium 8.3 L (8.4-10.2) mg/dL Total Bilirubin 0.2 (0.2-1.3) mg/dL AST 27 (14-36) U/L ALT 20 (4-34) U/L Alkaline Phosphatase 80 (38-126) U/L Troponin I (0.000-0.034) ng/mL Total Protein 5.7 L (6.3-8.2) g/dL Albumin 3.3 L (3.5-5.0) g/dL Lipase 73 (23-300) U/L Urine Color Urine Appearance (Clear) Urine pH (5.0-8.0) Ur Specific [place] (1.001-1.035) Urine Protein (Negative) Urine Glucose (UA) (Negative) Urine Ketones (Negative) Urine Blood (Negative) Urine Nitrite (Negative) Urine Bilirubin (Negative) Urine Urobilinogen (<2.0) mg/dL Ur Leukocyte Esterase (Negative) 06/29/22 06/29/22 Range/Units 12:30 13:27 WBC (3.8-10.6) k/uL RBC (3.80-5.40) m/uL Hgb (11.4-16.0) gm/dL Hct (34.0-46.0) % MCV (80.0-100.0) fL MCH (25.0-35.0) pg MCHC (31.0-37.0) g/dL RDW (11.5-15.5) % Plt Count (150-450) k/uL MPV Neutrophils % % Lymphocytes % % Monocytes % % Eosinophils % % Basophils % % Neutrophils # (1.3-7.7) k/uL Lymphocytes # (1.0-4.8) k/uL Monocytes # (0-1.0) k/uL Eosinophils # (0-0.7) k/uL Basophils # (0-0.2) k/uL Sodium (137-145) mmol/L Potassium (3.5-5.1) mmol/L Chloride (98-107) mmol/L Carbon Dioxide (22-30) mmol/L Anion Gap mmol/L BUN (7-17) mg/dL Creatinine (0.52-1.04) mg/dL Est GFR (CKD-EPI)AfAm (>60 ml/min/1.73 sqM) Est GFR (CKD-EPI)NonAf (>60 ml/min/1.73 sqM) Glucose (74-99) mg/dL Plasma Lactic Acid Isac (0.7-2.0) mmol/L Calcium (8.4-10.2) mg/dL Total Bilirubin (0.2-1.3) mg/dL AST (14-36) U/L ALT (4-34) U/L Alkaline Phosphatase (38-126) U/L Troponin I <0.012 (0.000-0.034) ng/mL Total Protein (6.3-8.2) g/dL Albumin (3.5-5.0) g/dL Lipase (23-300) U/L Urine Color Light Yellow Urine Appearance Clear (Clear) Urine pH 8.0 (5.0-8.0) Ur Specific [place] 1.011 (1.001-1.035) Urine Protein Negative (Negative) Urine Glucose (UA) Negative (Negative) Urine Ketones Negative (Negative) Urine Blood Negative (Negative) Urine Nitrite Negative (Negative) Urine Bilirubin Negative (Negative) Urine Urobilinogen <2.0 (<2.0) mg/dL Ur Leukocyte Esterase Negative (Negative) Disposition Clinical Impression: Popliteal cyst Disposition: HOME SELF-CARE Condition: Stable Instructions (If sedation given, give patient instructions): [facility] (ED) Additional Instructions: Please return to the Emergency Department if symptoms worsen or any other c oncerns. Prescriptions: Cyclobenzaprine [Flexeril] 10 mg PO TID PRN #15 tab PRN Reason: Muscle Spasm Is patient prescribed a controlled substance at d/c from ED?: No Referrals: Tio Puckett DO [Primary Care Provider] - 1-2 days Time of Disposition: 15:24
[2022-06-29 13:28] VITALS: RESP 18
[2022-06-29 13:52] LABS: Appearance,Urine Clear (Clear); Bilirubin,Urine Negative (Negative); Blood,Urine Negative (Negative); Color,Urine Light Yellow; Glucose,Urine (UA) Negative (Negative); Ketones,Urine Negative (Negative); Leukocyte Esterase,Urine Negative (Negative); Nitrite,Urine Negative (Negative); Protein,Urine Negative (Negative); Specific Gravity,Urine 1.011 (1.001-1.035); Urobilinogen,Urine <2.0 mg/dL (<2.0)
--- NOTE | 2022-06-29 14:42 | US ---
EXAMINATION TYPE: US venous doppler duplex LE LT DATE OF EXAM: 06/29/2022 2:33 PM COMPARISON: NONE CLINICAL HISTORY: pain. No hx of DVT. Patient not taking blood thinners. Pain in left leg x couple we eks, worse for 1 day. SIDE PERFORMED: Left TECHNIQUE: The lower extremity deep venous system is examined utilizing real time linear array sonog yuliya with graded compression, doppler sonography and color-flow sonography. VESSELS IMAGED: Common Femoral Vein Deep Femoral Vein Greater Saphenous Vein * Femoral Vein Popliteal Vein Small Saphenous Vein * Proximal Calf Veins (* superficial vessels) Left Leg: No evidence of DVT. *Complex area of unknown etiology seen posterior to the popliteal vessels measurin.8 x 3.0 x 0.9 cm. IMPRESSION: 1. No diagnostic evidence of DVT. However, there is a complex area of echogenicity measuring 3 cm pos terior to the knee most likely on the basis of a popliteal fossa cyst which should be confirmed with MRI.
[2022-06-29] MEDS ORDERED: ORPHENADRINE 30 MG/ML 2 ML VIAL IVP STA (15:22)
[2022-06-29] MEDS ORDERED: ACET/COD 300 MG/30 MG STARTER PACK 6 TAB BTL PO STA (15:22)
[2022-06-29 15:31] VITALS: BP 143/91; PULSE 86
== END 2022-06-29 15:39 | disposition home or self-care (01) ==
LOC: EC 11:05
DX: M71.22 Synovial cyst of popliteal space [Baker], left knee (principal); J44.9 Chronic obstructive pulmonary disease, unspecified; I10 Essential (primary) hypertension; F41.9 Anxiety disorder, unspecified; F31.9 Bipolar disorder, unspecified; F17.200 Nicotine dependence, unspecified, uncomplicated; Z91.018 Allergy to other foods; Z91.013 Allergy to seafood; Z91.030 Bee allergy status; Z79.899 Other long term (current) drug therapy
CPT/HCPCS: 36415; 93005; 80053; 83605; 83690; 84484; 85025; 81003; 71046; 93971; 99284; 96374; 96375 ×3; 96361; J2360; J2405; J1885

== ENCOUNTER 2022-08-02 11:22 | Emergency (ER) | payer BC, OTHER ==
[2022-08-02] MEDS ORDERED: methylPREDNISolone SOD SUCCI 125 MG/2 ML VIAL IV STA ×2 (11:49→13:32)
[2022-08-02] MEDS ORDERED: IPRATROPIUM-ALBUTEROL 3 ML NEB INHALATION STA (11:49)
[2022-08-02 12:02] LABS: Basophils % (A) 0 %; Eosinophils % (A) 0 %; HCT 42.8 % (34.0-46.0); HGB 14.8 gm/dL (11.4-16.0); Lymphocytes # (A) 1.5 k/uL (1.0-4.8); Lymphocytes % (A) 10 %; MCH 30.7 pg (25.0-35.0); MCHC 34.5 g/dL (31.0-37.0); MCV 88.9 fL (80.0-100.0); Mean Platelet Volume 7.8; Monocytes # (A) 0.3 k/uL (0-1.0); Monocytes % (A) 2 %; Neutrophils # (A) 13.7 k/uL (1.3-7.7); Neutrophils % (A) 87 %; Platelet Count 331 k/uL (150-450); RBC 4.81 m/uL (3.80-5.40); RDW 14.5 % (11.5-15.5); WBC 15.7 k/uL (3.8-10.6)
[2022-08-02 12:09] LABS: ALT 24 U/L (4-34); AST 24 U/L (14-36); African American GFR (CKD) >90 (>60 ml/min/1.73 sqM); Albumin 3.2 g/dL (3.5-5.0); Alkaline Phosphatase 71 U/L (38-126); Anion Gap 6 mmol/L; Blood Urea Nitrogen 12 mg/dL (7-17); Calcium 8.7 mg/dL (8.4-10.2); Carbon Dioxide 24 mmol/L (22-30); Chloride 103 mmol/L (98-107); Glucose 163 mg/dL (74-99); Magnesium 1.6 mg/dL (1.6-2.3); Non-African American GFR(CKD) >90 (>60 ml/min/1.73 sqM); Potassium 4.4 mmol/L (3.5-5.1); Sodium 133 mmol/L (137-145); Total Bilirubin 0.2 mg/dL (0.2-1.3); Total Protein 5.7 g/dL (6.3-8.2)
[2022-08-02 12:27] LABS: INR 0.9 (<1.2); Partial Thromboplastin Time 21.9 sec (22.0-30.0); Prothrombin Time 9.9 sec (9.0-12.0)
--- NOTE | 2022-08-02 12:28 | XR ---
EXAMINATION TYPE: XR chest 2V DATE OF EXAM: 08/02/2022 COMPARISON: 06/29/2022 INDICATION: Chest pain, bronchitis TECHNIQUE: Frontal and lateral views of the chest are obtained. FINDINGS: The heart size is normal. The pulmonary vasculature is normal. The lungs are clear. IMPRESSION: 1. No acute pulmonary process.
[2022-08-02] MEDS ORDERED: KETOROLAC 15 MG/ML 1 ML VIAL IVP STA (12:51)
[2022-08-02 13:07] VITALS: BP 143/77; RESP 19; TEMP 98.4
--- NOTE | 2022-08-02 13:17 | CT ---
EXAMINATION TYPE: CT chest angio for PE CT DLP: 389.2 mGycm, Automated exposure control for dose reduction was used. DATE OF EXAM: 08/02/2022 1:04 PM COMPARISON: Chest radiograph 08/02/2022, CTA chest 01/30/2018. CLINICAL INDICATION:Female, 52 years old with history of sob; SOB TECHNIQUE/CONTRAST: CTA scan of the thorax is performed without and with IV Contrast, patient injected with 100 ml mL of Isovue 370, pulmonary embolism protocol. MIP images are created and reviewed. FINDINGS: Pulmonary Artery: There is no evidence for a filling defect within the pulmonary vasculature to sugge st acute pulmonary embolism. The pulmonary artery is of normal size. Lungs/Pleura: No pleural effusion or pneumothorax. Tree-in-bud nodular opacities demonstrated through out the right lung. Airway: Large airways are patent. Heart: Heart is within normal limits for size.. No pericardial effusion Vasculature: No evidence of aortic aneurysm. Mediastinum: No evidence of adenopathy. Musculoskeletal: No acute osseous abnormalities Soft Tissues: Unremarkable. Lower neck: No significant findings. Upper Abdomen: Small hiatal hernia. IMPRESSION: 1. No evidence of pulmonary embolism. 2. Tree-in-bud nodular opacities demonstrated throughout the right lung consistent with infectious/in flammatory bronchiolitis
[2022-08-02] MEDS ORDERED: cefTRIAXone IN SWFI 1,000 MG/10 ML SYRINGE IVP STA (13:32)
--- NOTE | 2022-08-02 13:35 | ED ---
General Adult HPI - General Chief complaint: Shortness of Breath Stated complaint: Rt side pain Time Seen by Provider: 08/02/22 11:35 Source: patient, RN notes reviewed Mode of arrival: ambulatory Limitations: no limitations - History of Present Illness Initial comments: 52-year-old female presents emergency Department chief complaint of cough and cold-like symptoms. Patient states she's been sick for several days she was seen at urgent care yesterday was diagnosed with acute bronchitis. Patient is placed on steroids, inhaler. Patient states she started coughing worse today and felt some right-sided rib pain which started emergency department. Patient does admit that she is a daily smoker. Reports no fevers or chills no with abdominal pain slight nausea with her cough. States her cough is mildly productive. - Related Data Home Medications Medication Instructions Recorded Confirmed Buprenorphine/Naloxone 8Mg/2Mg 1 film SL BID 08/02/22 08/02/22 [Suboxone 8-2Mg Film] Doxycycline Hyclate 100 mg PO BID 08/02/22 08/02/22 Losartan Potassium 100 mg PO DAILY 08/02/22 08/02/22 metFORMIN HCL 1,000 mg PO BID 08/02/22 08/02/22 predniSONE [Deltasone] 20 mg PO BID 08/02/22 08/02/22 Previous Rx's Medication Instructions Recorded Benzonatate [Tessalon Perle] 200 mg PO TID #30 cap 08/02/22 Allergies Allergy/AdvReac Type Severity Reaction Status Date / Time Fish Containing Products Allergy Anaphylaxis Verified 08/02/22 12:49 [Fish] onion Allergy Anaphylaxis Verified 08/02/22 12:49 shellfish derived [Shellfish] Allergy Anaphylaxis Verified 08/02/22 12:49 venom-honey bee Allergy Anaphylaxis Verified 08/02/22 12:49 [bee venom (honey bee)] Review of Systems ROS Statement: Those systems with pertinent positive or pertinent negative responses have been documented in the HPI. ROS Other: All systems not noted in ROS Statement are negative. Past Medical History Past Medical History: Asthma, COPD, GERD/Reflux, Hyperlipidemia, Hypertension, Musculoskeletal Disorder, Seizure Disorder Additional Past Medical History / Comment(s): ANXIETY, Depression, suicide attempt, Bipolar, Borderline Traits. Pt. states last seizure was 11/10/13 History of Any Multi-Drug Resistant Organisms: None Reported Past Surgical History: Tubal Ligation Additional Past Surgical History / Comment(s): "Tummy Tuck" Past Anesthesia/Blood Transfusion Reactions: No Reported Reaction Additional Past Anesthesia/Blood Transfusion Reaction / Comment(s): Unknown, patient poor historian. Past Psychological History: Anxiety, Bipolar, Depression Smoking Status: Current every day smoker Past Alcohol Use History: None Reported Past Drug Use History: Heroin, Prescription Drug Abuse - Past Family History Father Additional Family Medical History / Comment(s): Father at age 63 with brain cancer and lung cancer. Mother Additional Family Medical History / Comment(s): Mother at age 54 due to a drunk driving car accident. Brother(s) Additional Family Medical History / Comment(s): Patient has 3 half brothers. One from a heroin overdose. 2 have no major medical problems. Sister(s) Additional Family Medical History / Comment(s): Patient has 6 half sisters that she does not have contact with. Daughter(s) Additional Family Medical History / Comment(s): Patient has 2 daughters and 1 son. She states she has not seen her 2 youngest children in 5 years as they were taken by their father to [place]. General Exam Limitations: no limitations General appearance: alert, in no apparent distress Head exam: Present: atraumatic, normocephalic, normal inspection Eye exam: Present: normal appearance, PERRL, EOMI. Absent: scleral icterus, conjunctival injection, periorbital swelling ENT exam: Present: normal exam, normal oropharynx, mucous membranes moist Neck exam: Present: normal inspection, full ROM. Absent: tenderness, meningismus, lymphadenopathy Respiratory exam: Present: wheezes, chest wall tenderness. Absent: normal lung sounds bilaterally, respiratory distress, rales, rhonchi, stridor Cardiovascular Exam: Present: normal rhythm, tachycardia, normal heart sounds. Absent: systolic murmur, diastolic murmur, rubs, gallop, clicks GI/Abdominal exam: Present: soft, normal bowel sounds. Absent: distended, tenderness, guarding, rebound, rigid Course Vital Signs 08/02/22 08/02/22 08/02/22 11:41 13:06 13:19 Temperature 98.5 F 98.4 F Pulse Rate 106 H 92 82 Respiratory 18 19 Rate Blood Pressure 146/84 143/77 O2 Sat by Pulse 96 97 Oximetry 08/02/22 13:30 Temperature Pulse Rate 83 Respiratory Rate Blood Pressure O2 Sat by Pulse Oximetry EKG Findings - EKG Comments: EKG Findings:: EKG performed at 11:28 sinus tachycardia with rate of 100 CT 124 QRS 79 QT/QTC 323 /380 - EKG Results: EKG: interpreted by NUPUR Medical Decision Making - Medical Decision Making Was pt. sent in by a medical professional or institution (, PA, IMPROVEMENT ANALYST, urgent care, hospital, or fci...) When possible be specific @ -No Did you speak to anyone other than the patient for history (EMS, parent, family, police, friend...)? What history was obtained from this source @ -No Did you review nursing and triage notes (agree or disagree)? Why? @ -I reviewed and agree with nursing and triage notes Were old charts reviewed (outside hosp., previous admission, EMS record, old EKG, old radiological studies, urgent care reports/EKG's, fci records)? Report findings @ -No old charts were reviewed Differential Diagnosis (chest pain, altered mental status, abdominal pain women, abdominal pain men, vaginal bleeding, weakness, fever, dyspnea, syncope, headache, dizziness, GI bleed, back pain, seizure, CVA, palpatations, mental health, musculoskeletal)? @ -nDifferential Dyspnea: Coronary syndrome, arrhythmia, tamponade, asthma, COPD, pulmonary embolism, pneumonia, pneumothorax, pulmonary effusion, anaphylaxis, diabetic ketoacidosis, flailed chest, pulmonary contusion, diaphragmatic rupture, anemia, mala romuscular, this is not meant to be an all-inclusive list. EKG interpreted by me (3pts min.). @ -As above X-rays interpreted by me (1pt min.). @ -Chest x-ray shows no significant abnormality CT interpreted by me (1pt min.). @ -CT chest [id number] shows no evidence of PE there is tree in budding changes of the right lung U/S interpreted by me (1pt. min.). @ -None done What testing was considered but not performed or refused? (CT, X-rays, U/S, labs)? Why? @ -None What meds were considered but not given or refused? Why? @ -None Did you discuss the management of the patient with other professionals (professionals i.e. Dr., PA, IMPROVEMENT ANALYST, lab, RT, psych nurse, social worker assistant, monitoring tech, teacher, commanding officer traffic division, medical case manager)? Give summary @ -No Was smoking cessation discussed for >3mins.? @ -I discussed smoking cessation for greater than 3 minutes. The risk of smoking were discussed with the patient including but not limited to risks of cancer, stroke, coronary artery disease and COPD. Also discussed with patient were multiple methods of quitting smoking. Lastly we discussed the financial cost of smoking. Was critical care preformed (if so, how long)? @ -No Were there social determinants of health that impacted care today? How? ( Homelessness, low income, unemployed, alcoholism, drug addiction, transportation, low edu. Level, literacy, decrease access to med. care, penitentiary, rehab)? @ -No Was there de-escalation of care discussed even if they declined (Discuss DNR or withdrawal of care, Hospice)? DNR status @ -No What co-morbidities impacted this encounter? (DM, HTN, Smoking, COPD, CAD, Cancer, CVA, ARF, Chemo, Hep., AIDS, mental health diagnosis, sleep apnea, morbid obesity)? @ -Smoking, drug abuse Was patient admitted / discharged? Hospital course, mention meds given and route, prescriptions, significant lab abnormalities, going to OR and other pertinent info. @ -Discharge patient has acute bronchitis, bronchiolitis type changes primarily right lung. She is currently on antibiotics she is feeling improved after DuoNeb treatment, Toradol. Patient will be discharged advised to continue her antibiotics, steroids, inhaler that she started yesterday. Patient agrees to plan she is advised to recheck in 24 hours and return for any worsening change in symptoms. Undiagnosed new problem with uncertain prognosis? @ -No Drug Therapy requiring intensive monitoring for toxicity (Heparin, Nitro, Insulin, Cardizem)? @ -No Were any procedures done? @ -No Diagnosis/symptom? @ -Acute bronchitis Acute, or Chronic, or Acute on Chronic? @ -Acute Uncomplicated (without systemic symptoms) or Complicated (systemic symptoms)? @ -[Uncomplicated Side effects of treatment? @ -No Exacerbation, Progression, or Severe Exacerbation? @ -No Poses a threat to life or bodily function? How? (Chest pain, USA, [place], pneumonia, PE, COPD, DKA, ARF, appy, cholecystitis, CVA, Diverticulitis, Homicidal, Suicidal, threat to staff... and all critical care pts) @ -No - Lab Data Result diagrams: 08/02/22 11:39 08/02/22 11:39 Lab Results 08/02/22 08/02/22 08/02/22 Range/Units 11:39 11:39 11:39 WBC 15.7 H (3.8-10.6) k/uL RBC 4.81 (3.80-5.40) m/uL Hgb 14.8 (11.4-16.0) gm/dL Hct 42.8 (34.0-46.0) % MCV 88.9 (80.0-100.0) fL MCH 30.7 (25.0-35.0) pg MCHC 34.5 (31.0-37.0) g/dL RDW 14.5 (11.5-15.5) % Plt Count 331 (150-450) k/uL MPV 7.8 Neutrophils % 87 % Lymphocytes % 10 % Monocytes % 2 % Eosinophils % 0 % Basophils % 0 % Neutrophils # 13.7 H (1.3-7.7) k/uL Lymphocytes # 1.5 (1.0-4.8) k/uL Monocytes # 0.3 (0-1.0) k/uL Eosinophils # 0.0 (0-0.7) k/uL Basophils # 0.0 (0-0.2) k/uL PT 9.9 (9.0-12.0) sec INR 0.9 (<1.2) APTT 21.9 L (22.0-30.0) sec D-Dimer 0.61 H (<0.60) mg/L FEU Sodium 133 L (137-145) mmol/L Potassium 4.4 (3.5-5.1) mmol/L Chloride 103 (98-107) mmol/L Carbon Dioxide 24 (22-30) mmol/L Anion Gap 6 mmol/L BUN 12 (7-17) mg/dL Creatinine 0.61 (0.52-1.04) mg/dL Est GFR (CKD-EPI)AfAm >90 (>60 ml/min/1.73 sqM) Est GFR (CKD-EPI)NonAf >90 (>60 ml/min/1.73 sqM) Glucose 163 H (74-99) mg/dL Calcium 8.7 (8.4-10.2) mg/dL Magnesium 1.6 (1.6-2.3) mg/dL Total Bilirubin 0.2 (0.2-1.3) mg/dL AST 24 (14-36) U/L ALT 24 (4-34) U/L Alkaline Phosphatase 71 (38-126) U/L Troponin I (0.000-0.034) ng/mL Total Protein 5.7 L (6.3-8.2) g/dL Albumin 3.2 L (3.5-5.0) g/dL Influenza Type A (PCR) (Not Detectd) Influenza Type B (PCR) (Not Detectd) RSV (PCR) (Not Detectd) SARS-CoV-2 (PCR) (Not Detectd) 08/02/22 08/02/22 Range/Units 11:39 11:39 WBC (3.8-10.6) k/uL RBC (3.80-5.40) m/uL Hgb (11.4-16.0) gm/dL Hct (34.0-46.0) % MCV (80.0-100.0) fL MCH (25.0-35.0) pg MCHC (31.0-37.0) g/dL RDW (11.5-15.5) % Plt Count (150-450) k/uL MPV Neutrophils % % Lymphocytes % % Monocytes % % Eosinophils % % Basophils % % Neutrophils # (1.3-7.7) k/uL Lymphocytes # (1.0-4.8) k/uL Monocytes # (0-1.0) k/uL Eosinophils # (0-0.7) k/uL Basophils # (0-0.2) k/uL PT (9.0-12.0) sec INR (<1.2) APTT (22.0-30.0) sec D-Dimer (<0.60) mg/L FEU Sodium (137-145) mmol/L Potassium (3.5-5.1) mmol/L Chloride (98-107) mmol/L Carbon Dioxide (22-30) mmol/L Anion Gap mmol/L BUN (7-17) mg/dL Creatinine (0.52-1.04) mg/dL Est GFR (CKD-EPI)AfAm (>60 ml/min/1.73 sqM) Est GFR (CKD-EPI)NonAf (>60 ml/min/1.73 sqM) Glucose (74-99) mg/dL Calcium (8.4-10.2) mg/dL Magnesium (1.6-2.3) mg/dL Total Bilirubin (0.2-1.3) mg/dL AST (14-36) U/L ALT (4-34) U/L Alkaline Phosphatase (38-126) U/L Troponin I <0.012 (0.000-0.034) ng/mL Total Protein (6.3-8.2) g/dL Albumin (3.5-5.0) g/dL Influenza Type A (PCR) Not Detected (Not Detectd) Influenza Type B (PCR) Not Detected (Not Detectd) RSV (PCR) Not Detected (Not Detectd) SARS-CoV-2 (PCR) Not Detected (Not Detectd) Disposition Clinical Impression: Acute bronchitis Disposition: HOME SELF-CARE Condition: Stable Instructions (If sedation given, give patient instructions): Acute Bronchitis (ED) Additional Instructions: Please return to the Emergency Department if symptoms worsen or any other concerns. Prescriptions: Benzonatate [Tessalon Perle] 200 mg PO TID #30 cap Is patient prescribed a controlled substance at d/c from ED?: No Referrals: Tio Puckett DO [Primary Care Provider] - 1-2 days Time of Disposition: 13:35
[2022-08-02 13:42] VITALS: PULSE 83
== END 2022-08-02 13:53 | disposition home or self-care (01) ==
LOC: EC 11:22
DX: J20.9 Acute bronchitis, unspecified (principal); J44.9 Chronic obstructive pulmonary disease, unspecified; I10 Essential (primary) hypertension; F31.9 Bipolar disorder, unspecified; F41.9 Anxiety disorder, unspecified; F11.90 Opioid use, unspecified, uncomplicated; F17.200 Nicotine dependence, unspecified, uncomplicated; Z20.822 Contact with and (suspected) exposure to COVID-19; Z79.899 Other long term (current) drug therapy; Z91.013 Allergy to seafood; Z91.030 Bee allergy status; Z91.018 Allergy to other foods
CPT/HCPCS: 36415; 94640; 93005; 85379; 80053; 83735; 84484; 85025; 85610; 85730; 87636; 71046; 71275; 99285; 96374; 96375 ×2; 96376; J2930; J0696; J1885; Q9967

== ENCOUNTER 2022-08-04 14:55 | Emergency (ER) | payer BC, OTHER ==
[2022-08-04 15:00] VITALS: TEMP 98.1
[2022-08-04] MEDS ORDERED: IPRATROPIUM-ALBUTEROL 3 ML NEB INHALATION STA (15:28)
[2022-08-04 15:42] LABS: Basophils % (A) 0 %; Eosinophils # (A) 0.1 k/uL (0-0.7); Eosinophils % (A) 0 %; HCT 39.5 % (34.0-46.0); Lymphocytes # (A) 1.1 k/uL (1.0-4.8); Lymphocytes % (A) 7 %; MCHC 32.9 g/dL (31.0-37.0); Mean Platelet Volume 7.5; Monocytes # (A) 0.2 k/uL (0-1.0); Monocytes % (A) 1 %; Neutrophils # (A) 13.2 k/uL (1.3-7.7); Neutrophils % (A) 90 %; Platelet Count 327 k/uL (150-450); RBC 4.34 m/uL (3.80-5.40); RDW 14.3 % (11.5-15.5); WBC 14.6 k/uL (3.8-10.6)
[2022-08-04 15:48] LABS: Albumin 3.1 g/dL (3.5-5.0); Calcium 7.9 mg/dL (8.4-10.2); Magnesium 1.4 mg/dL (1.6-2.3); Potassium 4.2 mmol/L (3.5-5.1); Total Bilirubin 0.2 mg/dL (0.2-1.3); Total Protein 5.5 g/dL (6.3-8.2)
[2022-08-04 16:11] VITALS: BP 133/62; PULSE 94; RESP 18
--- NOTE | 2022-08-04 16:14 | XR ---
EXAMINATION TYPE: XR chest 2V DATE OF EXAM: 08/04/2022 COMPARISON: Chest x-ray 2 days ago HISTORY: Shortness of breath TECHNIQUE: Frontal and lateral views of the chest are obtained. FINDINGS: There is no suspicious focal air space opacity, pleural effusion, or pneumothorax seen. T he cardiac silhouette size is stable and within normal limits. The osseous structures are intact. IMPRESSION: No acute process.
--- NOTE | 2022-08-04 16:39 | ED ---
General Adult HPI - General Chief complaint: Shortness of Breath Stated complaint: SOB Time Seen by Provider: 08/04/22 15:12 Source: patient Mode of arrival: wheelchair Limitations: no limitations - History of Present Illness Initial comments: This is a 52-year-old female with a past medical history including asthma and hypertension presents emergency department for shortness of breath. The patient stated that she has been seen in the urgent care several times this past week for shortness of breath and was seen in the emergency department on Sunday for some her symptoms. It was reported the patient did have a history of asthma and had some wheezing but had breathing treatments scheduled at the urgent care. The patient was concerned that she was not improving so she came to the emergency department for evaluation. The patient did state date that she felt short of breath. The patient denied any fevers, chills as well as any nausea and vomiting. The patient was resting in bed slightly anxious however without any other acute pain or complaints. - Related Data Home Medications Medication Instructions Recorded Confirmed Buprenorphine/Naloxone 8Mg/2Mg 1 film SL BID 08/02/22 08/02/22 [Suboxone 8-2Mg Film] Doxycycline Hyclate 100 mg PO BID 08/02/22 08/02/22 Losartan Potassium 100 mg PO DAILY 08/02/22 08/02/22 metFORMIN HCL 1,000 mg PO BID 08/02/22 08/02/22 predniSONE [Deltasone] 20 mg PO BID 08/02/22 08/02/22 Previous Rx's Medication Instructions Recorded Benzonatate [Tessalon Perle] 200 mg PO TID #30 cap 08/02/22 Allergies Allergy/AdvReac Type Severity Reaction Status Date / Time Fish Containing Products Allergy Anaphylaxis Verified 08/04/22 15:00 [Fish] onion Allergy Anaphylaxis Verified 08/04/22 15:00 shellfish derived [Shellfish] Allergy Anaphylaxis Verified 08/04/22 15:00 venom-honey bee Allergy Anaphylaxis Verified 08/04/22 15:00 [bee venom (honey bee)] Review of Systems ROS Statement: Those systems with pertinent positive or pertinent negative responses have been documented in the HPI. ROS Other: All systems not noted in ROS Statement are negative. Past Medical History Past Medical History: Asthma, COPD, GERD/Reflux, Hyperlipidemia, Hypertension, Musculoskeletal Disorder, Seizure Disorder Additional Past Medical History / Comment(s): ANXIETY, Depression, suicide attempt, Bipolar, Borderline Traits. Pt. states last seizure was 11/10/13 History of Any Multi-Drug Resistant Organisms: None Reported Past Surgical History: Tubal Ligation Additional Past Surgical History / Comment(s): "Tummy Tuck" Past Anesthesia/Blood Transfusion Reactions: No Reported Reaction Additional Past Anesthesia/Blood Transfusion Reaction / Comment(s): Unknown, patient poor historian. Past Psychological History: Anxiety, Bipolar, Depression Smoking Status: Current every day smoker Past Alcohol Use History: None Reported Past Drug Use History: Heroin, Prescription Drug Abuse - Past Family History Father Additional Family Medical History / Comment(s): Father at age 63 with brain cancer and lung cancer. Mother Additional Family Medical History / Comment(s): Mother at age 54 due to a drunk driving car accident. Brother(s) Additional Family Medical History / Comment(s): Patient has 3 half brothers. One from a heroin overdose. 2 have no major medical problems. Sister(s) Additional Family Medical History / Comment(s): Patient has 6 half sisters that she does not have contact with. Daughter(s) Additional Family Medical History / Comment(s): Patient has 2 daughters and 1 son. She states she has not seen her 2 youngest children in 5 years as they were taken by their father to [place]. General Exam Limitations: no limitations General appearance: alert, in no apparent distress, anxious (Mildly anxious) Head exam: Present: atraumatic, normocephalic, normal inspection Eye exam: Present: normal appearance, PERRL Pupils: Present: normal accommodation ENT exam: Present: normal exam, normal oropharynx, mucous membranes moist Neck exam: Present: normal inspection, full ROM Respiratory exam: Present: wheezes (Mild expiratory wheezing heard in the right lung) Cardiovascular Exam: Present: regular rate, normal rhythm, normal heart sounds GI/Abdominal exam: Present: soft, normal bowel sounds Extremities exam: Present: normal inspection, full ROM Back exam: Present: normal inspection, full ROM Neurological exam: Present: alert, oriented X3, CN II-XII intact Psychiatric exam: Present: normal affect, normal mood Skin exam: Present: warm, dry Course Vital Signs 08/04/22 08/04/22 08/04/22 14:57 15:06 15:55 Temperature 98.1 F Pulse Rate 121 H 102 H 88 Respiratory 22 18 18 Rate Blood Pressure 175/120 176/80 O2 Sat by Pulse 98 97 Oximetry 08/04/22 08/04/22 16:00 16:08 Temperature Pulse Rate 88 94 Respiratory 16 18 Rate Blood Pressure 133/62 O2 Sat by Pulse 97 Oximetry EKG Findings - EKG Comments: EKG Findings:: An EKG was obtained and was interpreted by myself showing a rate of 92, UT interval 112, QRS duration of 89 and QTC of 393. This EKG showed a normal sinus rhythm with no ST segment elevation or depression noted. Medical Decision Making - Medical Decision Making Was pt. sent in by a medical professional or institution (, JOSEY, LABOR SUPERVISOR, urgent care, hospital, or residential...) When possible be specific @ -No Did you speak to anyone other than the patient for history (EMS, parent, family, police, friend...)? What history was obtained from this source @ -No Did you review nursing and triage notes (agree or disagree)? Why? @ -I reviewed and agree with nursing and triage notes Were old charts reviewed (outside hosp., previous admission, EMS record, old EKG, old radiological studies, urgent care reports/EKG's, residential records)? Report findings @ -Is previous ER visits reviewed including CTA results and laboratory work up. Differential Diagnosis (chest pain, altered mental status, abdominal pain women, abdominal pain men, vaginal bleeding, weakness, fever, dyspnea, syncope, headache, dizziness, GI bleed, back pain, seizure, CVA, palpatations, mental health)? @ -Asthma exacerbation, pneumonia, ACS EKG interpreted by me (3pts min.). @ -As above X-rays interpreted by me (1pt min.). @ -Chest x-ray was obtained and was interpreted by myself showing no acute process. CT interpreted by me (1pt min.). @ -None done U/S interpreted by me (1pt. min.). @ -None done What testing was considered but not performed or refused? (CT, X-rays, U/S, labs)? Why? @ -None What meds were considered but not given or refused? Why? @ -None Did you discuss the management of the patient with other professionals (professionals i.e. , JOSEY, LABOR SUPERVISOR, lab, RT, psych nurse, clinical social work aide, silica spray mixer, teacher, ethics officer, egg caser)? Give summary @ -No Was smoking cessation discussed for >3mins.? @ -No Was critical care preformed (if so, how long)? @ -No Were there social determinants of health that impacted care today? How? (Homelessness, low income, unemployed, alcoholism, drug addiction, transportation, low edu. Level, literacy, decrease access to med. care, skilled nursing, rehab)? @ -No Was there de-escalation of care discussed even if they declined (Discuss DNR or withdrawal of care, Hospice)? DNR status @ -No What co-morbidities impacted this encounter? (DM, HTN, Smoking, COPD, CAD, Cancer, CVA, ARF, Chemo, Hep., AIDS, mental health diagnosis, sleep apnea, morbid obesity)? @ -Asthma Was patient admitted / discharged? Hospital course, mention meds given and route, prescriptions, significant lab abnormalities, going to OR and other pertinent info. @ -Patient was seen and evaluated emergency department. Physical exam, the patient was resting in bed without any acute distress. Vital signs admission were stable. The patient did have some mild wheezing and was given a breathing treatment. Laboratory workup was within normal limits and chest x-ray was negative. The patient likely had continued asthma exacerbation and she was stable for discharge home. The patient was reevaluated and stated that her s ymptoms are greatly improved. The patient was tachycardic initially on arrival but had significant anxiety. While was evaluating the patient, the patient was resting in bed comfortably with a normal heart rate. The patient did have anxiety related to her shortness of breath but was was altered when I evaluated her. The patient was stable for discharge home and was advised to follow-up for further workup and evaluation. The patient was discharged home in stable condition. Undiagnosed new problem with uncertain prognosis? @ -No Drug Therapy requiring intensive monitoring for toxicity (Heparin, Nitro, Insulin, Cardizem)? @ -No Were any procedures done? @ -No Diagnosis/symptom? @ -Asthma exacerbation, mild Acute, or Chronic, or Acute on Chronic? @ -Acute on chronic Uncomplicated (without systemic symptoms) or Complicated (systemic symptoms)? @ -Uncomplicated Side effects of treatment? @ -No Exacerbation, Progression, or Severe Exacerbation? @ -Exacerbation Poses a threat to life or bodily function? How? (Chest pain, USA, [place], pneumonia, PE, COPD, DKA, ARF, appy, cholecystitis, CVA, Diverticulitis, Homicidal, Suicidal, threat to staff... and all critical care pts) @ -No - Lab Data Result diagrams: 08/04/22 15:30 08/04/22 15:30 Lab Results 08/04/22 08/04/22 08/04/22 Range/Units 15:30 15:30 15:30 WBC 14.6 H (3.8-10.6) k/uL RBC 4.34 (3.80-5.40) m/uL Hgb 13.0 (11.4-16.0) gm/dL Hct 39.5 (34.0-46.0) % MCV 91.0 (80.0-100.0) fL MCH 30.0 (25.0-35.0) pg MCHC 32.9 (31.0-37.0) g/dL RDW 14.3 (11.5-15.5) % Plt Count 327 (150-450) k/uL MPV 7.5 Neutrophils % 90 % Lymphocytes % 7 % Monocytes % 1 % Eosinophils % 0 % Basophils % 0 % Neutrophils # 13.2 H (1.3-7.7) k/uL Lymphocytes # 1.1 (1.0-4.8) k/uL Monocytes # 0.2 (0-1.0) k/uL Eosinophils # 0.1 (0-0.7) k/uL Basophils # 0.0 (0-0.2) k/uL Sodium 136 L (137-145) mmol/L Potassium 4.2 (3.5-5.1) mmol/L Chloride 105 (98-107) mmol/L Carbon Dioxide 25 (22-30) mmol/L Anion Gap 6 mmol/L BUN 19 H (7-17) mg/dL Creatinine 0.91 (0.52-1.04) mg/dL Est GFR (CKD-EPI)AfAm 85 (>60 ml/min/1.73 sqM) Est GFR (CKD-EPI)NonAf 74 (>60 ml/min/1.73 sqM) Glucose 200 H (74-99) mg/dL Calcium 7.9 L (8.4-10.2) mg/dL Magnesium 1.4 L (1.6-2.3) mg/dL Total Bilirubin 0.2 (0.2-1.3) mg/dL AST 36 (14-36) U/L ALT 25 (4-34) U/L Alkaline Phosphatase 75 (38-126) U/L Troponin I <0.012 (0.000-0.034) ng/mL Total Protein 5.5 L (6.3-8.2) g/dL Albumin 3.1 L (3.5-5.0) g/dL Lipase 82 (23-300) U/L Disposition Clinical Impression: Asthma, Anxiety Disposition: HOME SELF-CARE Condition: Stable Instructions (If sedation given, give patient instructions): Asthma (ED) Is patient prescribed a controlled substance at d/c from ED?: No Referrals: Michael Cortez MD [Primary Care Provider] - 1-2 days Time of Disposition: 16:20
== END 2022-08-04 16:47 | disposition home or self-care (01) ==
LOC: EC 14:55
DX: J45.909 Unspecified asthma, uncomplicated (principal); F41.9 Anxiety disorder, unspecified; I10 Essential (primary) hypertension; F31.9 Bipolar disorder, unspecified; F17.200 Nicotine dependence, unspecified, uncomplicated; F11.90 Opioid use, unspecified, uncomplicated; Z79.899 Other long term (current) drug therapy; Z91.013 Allergy to seafood; Z91.030 Bee allergy status; Z91.018 Allergy to other foods; Z79.52 Long term (current) use of systemic steroids
CPT/HCPCS: 36415; 71046; 80053; 83690; 83735; 84484; 85025; 93005; 94640; 99285

== ENCOUNTER 2022-08-05 23:05 | Emergency (ER) | payer BC, OTHER ==
[2022-08-05 23:14] VITALS: BP 182/111; TEMP 98
[2022-08-05] MEDS ORDERED: IPRATROPIUM-ALBUTEROL 3 ML NEB INHALATION STA (23:32)
--- NOTE | 2022-08-06 00:34 | ED ---
SOB HPI - General Chief Complaint: Shortness of Breath Stated Complaint: Difficulty Breathing, Cough Time Seen by Provider: 08/05/22 23:26 Source: patient Mode of arrival: ambulatory Limitations: no limitations - History of Present Illness Initial Comments: Patient is a 52-year-old female with history of asthma presenting with chief complaint of shortness of breath. Patient was seen here yesterday for the same complaint. Patient has had cough for several weeks. She is currently on antibiotics and steroids. Patient does have an albuterol inhaler at home. She has been trying to get a nebulizer, has been having difficulties with [employer]. No chest pain. No fevers or chills. No palpitations or weakness. No abdominal pain, nausea, vomiting. - Related Data Home Medications Medication Instructions Recorded Confirmed Buprenorphine/Naloxone 8Mg/2Mg 1 film SL BID 08/02/22 08/02/22 [Suboxone 8-2Mg Film] Doxycycline Hyclate 100 mg PO BID 08/02/22 08/02/22 Losartan Potassium 100 mg PO DAILY 08/02/22 08/02/22 metFORMIN HCL 1,000 mg PO BID 08/02/22 08/02/22 predniSONE [Deltasone] 20 mg PO BID 08/02/22 08/02/22 Previous Rx's Medication Instructions Recorded Benzonatate [Tessalon Perle] 200 mg PO TID #30 cap 08/02/22 Allergies Allergy/AdvReac Type Severity Reaction Status Date / Time Fish Containing Products Allergy Anaphylaxis Verified 08/04/22 15:00 [Fish] onion Allergy Anaphylaxis Verified 08/04/22 15:00 shellfish derived [Shellfish] Allergy Anaphylaxis Verified 08/04/22 15:00 venom-honey bee Allergy Anaphylaxis Verified 08/04/22 15:00 [bee venom (honey bee)] Review of Systems ROS Statement: Those systems with pertinent positive or pertinent negative responses have been documented in the HPI. ROS Other: All systems not noted in ROS Statement are negative. Past Medical History Past Medical History: Asthma, COPD, GERD/Reflux, Hyperlipidemia, Hypertension, Musculoskeletal Disorder, Seizure Disorder Additional Past Medical History / Comment(s): ANXIETY, Depression, suicide attempt, Bipolar, Borderline Traits. Pt. states last seizure was 11/10/13 History of Any Multi-Drug Resistant Organisms: None Reported Past Surgical History: Tubal Ligation Additional Past Surgical History / Comment(s): "Tummy Tuck" Past Anesthesia/Blood Transfusion Reactions: No Reported Reaction Additional Past Anesthesia/Blood Transfusion Reaction / Comment(s): Unknown, patient poor historian. Past Psychological History: Anxiety, Bipolar, Depression Smoking Status: Current every day smoker Past Alcohol Use History: None Reported Past Drug Use History: Heroin, Prescription Drug Abuse - Past Family History Father Additional Family Medical History / Comment(s): Father at age 63 with brain cancer and lung cancer. Mother Additional Family Medical History / Comment(s): Mother at age 54 due to a drunk driving car accident. Brother(s) Additional Family Medical History / Comment(s): Patient has 3 half brothers. One from a heroin overdose. 2 have no major medical problems. Sister(s) Additional Family Medical History / Comment(s): Patient has 6 half sisters that she does not have contact with. Daughter(s) Additional Family Medical History / Comment(s): Patient has 2 daughters and 1 son. She states she has not seen her 2 youngest children in 5 years as they were taken by their father to [place]. General Exam Limitations: no limitations General appearance: alert, in no apparent distress Head exam: Present: atraumatic, normocephalic, normal inspection Eye exam: Present: normal appearance, EOMI. Absent: periorbital swelling Neck exam: Present: normal inspection, full ROM Respiratory exam: Present: wheezes. Absent: respiratory distress Cardiovascular Exam: Present: regular rate, normal rhythm, normal heart sounds. Absent: systolic murmur, diastolic murmur, rubs, gallop, clicks Neurological exam: Present: alert, oriented X3, CN II-XII intact Psychiatric exam: Present: normal affect, normal mood Skin exam: Present: warm, dry, intact, normal color. Absent: rash Course Vital Signs 08/05/22 08/06/22 08/06/22 23:10 00:04 00:12 Temperature 98 F Pulse Rate 84 67 72 Respiratory 22 Rate Blood Pressure 182/111 O2 Sat by Pulse 98 Oximetry 08/06/22 00:57 Temperature Pulse Rate 78 Respiratory 14 Rate Blood Pressure O2 Sat by Pulse 98 Oximetry Medical Decision Making - Medical Decision Making Was pt. sent in by a medical professional or institution (, PA, [employer] SQL DEVELOPER, urgent care, hospital, or senior care...) When possible be specific @ -No Did you speak to anyone other than the patient for history (EMS, parent, family, police, friend...)? What history was obtained from this source @ -No Did you review nursing and triage notes (agree or disagree)? Why? @ -I reviewed and agree with nursing and triage notes Were old charts reviewed (outside hosp., previous admission, EMS record, old EKG, old radiological studies, urgent care reports/EKG's, senior care records)? Report findings @ -No old charts were reviewed Differential Diagnosis (chest pain, altered mental status, abdominal pain women, abdominal pain men, vaginal bleeding, weakness, fever, dyspnea, syncope, headache, dizziness, GI bleed, back pain, seizure, CVA, palpatations, mental health, musculoskeletal)? @ -MDM Differential Dyspnea: Coronary syndrome, arrhythmia, tamponade, asthma, COPD, pulmonary embolism, pneumonia, pneumothorax, pulmonary effusion, anaphylaxis, diabetic ketoacidosis, flailed chest, pulmonary contusion, diaphragmatic rupture, anemia, neuromuscular this is not meant to be an all-inclusive list. EKG interpreted by me (3pts min.). @ -As above X-rays interpreted by me (1pt min.). @ -None done CT interpreted by me (1pt min.). @ -None done U/S interpreted by me (1pt. min.). @ -None done What testing was considered but not performed or refused? (CT, X-rays, U/S, labs)? Why? @ -None What meds were considered but not given or refused? Why? @ -None Did you discuss the management of the patient with other professionals (professionals i.e. , PA, [employer] SQL DEVELOPER, lab, RT, psych nurse, long term care social worker, cable television installer, teacher, learning officer, director of casework department)? Give summary @ -No Was smoking cessation discussed for >3mins.? @ -No Was critical care preformed (if so, how long)? @ -No Were there social determinants of health that impacted care today? How? (Homelessness, low income, unemployed, alcoholism, drug addiction, transportation, low edu. Level, literacy, decrease access to med. care, half-way, rehab)? @ -No Was there de-escalation of care discussed even if they declined (Discuss DNR or withdrawal of care, Hospice)? DNR status @ -No What co-morbidities impacted this encounter? (DM, HTN, Smoking, COPD, CAD, Cancer, CVA, ARF, Chemo, Hep., AIDS, mental health diagnosis, sleep apnea, morbid obesity)? @ -Asthma Was patient admitted / discharged? Hospital course, mention meds given and route, prescriptions, significant lab abnormalities, going to OR and other pertinent info. @ -Patient is a 52-year-old female history of asthma presenting with chief complaint of shortness of breath. Patient was seen here yesterday for same complaints. She is currently on steroids and antibiotics. She has come requesting just a breathing treatment. On physical examination mild diffuse expiratory wheezes are heard on auscultation. Patient is given DuoNeb treatment. On reassessment she reports great improvement in her symptoms and would like to be discharged home. On auscultation wheezing has improved. Patient is instructed to continue taking her medications as prescribed. Follow- up with PCP. Report back to ER with any new or worsening symptoms. Discussed return parameters and answered all questions. Patient conveyed verbal understanding and agreed to the plan. I discussed this case in detail with my attending Dr. Messina Undiagnosed new problem with uncertain prognosis? @ -No Drug Therapy requiring intensive monitoring for toxicity (Heparin, Nitro, Insulin, Cardizem)? @ -No Were any procedures done? @ -No Diagnosis/symptom? @ -Asthma Acute, or Chronic, or Acute on Chronic? @ -Acute on chronic Uncomplicated (without systemic symptoms) or Complicated (systemic symptoms)? @ -Uncomplicated Side effects of treatment? @ -No Exacerbation, Progression, or Severe Exacerbation? @ -No Poses a threat to life or bodily function? How? (Chest pain, [place], [place], pneumonia, PE, COPD, DKA, ARF, appy, cholecystitis, CVA, Diverticulitis, Homicidal, Suicidal, threat to staff... and all critical care pts) @ -No Disposition Clinical Impression: Asthma Disposition: HOME SELF-CARE Condition: Good Instructions (If sedation given, give patient instructions): Asthma (ED) Additional Instructions: Follow-up with PCP. Report back to ER with any new or worsening symptoms. Is patient prescribed a controlled substance at d/c from ED?: No Referrals: Michael Cortez MD [Primary Care Provider] - 1-2 days Time of Disposition: 00:34
[2022-08-06 00:58] VITALS: PULSE 78; RESP 14
== END 2022-08-06 00:57 | disposition home or self-care (01) ==
LOC: EC 23:05
DX: J45.909 Unspecified asthma, uncomplicated (principal); E78.5 Hyperlipidemia, unspecified; I10 Essential (primary) hypertension; F41.9 Anxiety disorder, unspecified; F31.9 Bipolar disorder, unspecified; F17.200 Nicotine dependence, unspecified, uncomplicated; Z91.030 Bee allergy status; Z91.013 Allergy to seafood; Z91.018 Allergy to other foods; Z79.899 Other long term (current) drug therapy
CPT/HCPCS: 94640; 99284